=== PATIENT | female | born 2000 | race Caucasian/White ===

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

== ENCOUNTER 2022-01-04 17:40 | Emergency (ER) | payer MEDICAID, SELFPAY ==
[2022-01-04 17:41] VITALS: BP 120/69; PULSE 89; RESP 18; TEMP 36.7; O2SAT 99; BMI 35.6
--- NOTE | 2022-01-04 18:07 | HMH.EDUTC ---
[facility] [place] Clinical Impression: Exposure to STD, Viral syndrome Disposition: Home, Self-Care Condition on Discharge: Good Instructions: An STD Now Can Result in Infertility Later, DI for COVID-19 (Suspected or Confirmed ), Preventing the Spread of Coronavirus Discharge Instructions Additional Instructions: Drink plenty of fluids. Take tylenol or ibuprofen for pain. Follow up with your regular doctor. GO TO THE ER FOR ANY WORSENING SYMPTOMS Referrals: Caden Garcia MD [Primary Care Provider] - Forms: Work/School Release Time of Disposition: 18:31 Medical Decision Making - Medical Records Medical records reviewed: No: I reviewed the patient's medical records. - Tomas Inquiry Pt receiving controlled substance: No Vital Signs: 01/04/22 17:41 01/04/22 18:42 Temperature 98.0 F 98.0 F Temperature Source Oral Oral Pulse Rate 89 Pulse Rate [Right Radial] 89 Respiratory Rate 18 19 Blood Pressure 120/69 Blood Pressure [Right Arm] 120/69 Blood Pressure Mean [Right Arm] 86 Blood Pressure Source Automatic Cuff Blood Pressure Source [Right Arm] Automatic Cuff Blood Pressure Position Sitting Blood Pressure Position [Right Arm] Sitting 02 Sat by Pulse Oximetry 99 Oxygen Delivery Method Room Air Room Air - Lab Data Lab results reviewed: Yes: I reviewed the patient's lab results. Orders (Tests/Meds): ORDERS Category Date Time Status Urine Culture Stat Micro 01/04/22 17:53 Results [facility] [place] HPI - General Stated complaint: COVID TEST,COUGH,dIARRHEA Time Seen by Provider: 01/04/22 18:07 - History of Present Illness Provider Complaint: She is here to get an std check and to be checked for covid-19. She denies any symptoms of stds but she found out her boyfriend has been cheating on her and she would like to be checked. - Related Data Home Medications Medication Instructions Recorded Confirmed vits,calcium 21-iron fum tab PO 09/22/21 09/22/21 14 mg iron-folic acid 400 mcg tablet Allergies Allergy/AdvReac Type Severity Reaction Status Date / Time No Known Allergies Allergy Verified 01/04/22 18:07 [facility] History - Hepatitis A Screen Attestation statement:: This patient has been screened for Hepatitis A risk factors. I have reviewed the patient's past medical history: Yes Other Surgeries: Yes: No Previous Surgery Amputation: No Fractures: No - Social History Smoking Status: Current every day smoker Tobacco Type: e-cigarettes # Packs/Day (cigarettes): 1 Alcohol Intake: never Substance Use Type: denies use Occupational Status: other Housing: house Household Members: other Family Hx:: Cancer, Diabetes, Hypertension, Stroke ROS Obtained: Yes All systems reviewed & no additional complaints - Constitutional Constitutional: Denies chills, Denies fever(s) - Eyes Eyes: Denies eye discharge - ENT Ears, Nose, Mouth, and Throat: Denies dizziness, Denies otalgia, Denies sore throat - Cardiovascular Cardiovascular: Denies chest pain - Respiratory Respiratory: Denies chest congestion, Denies cough - Genitourinary Female Genitourinary: Denies dysuria, Denies urinary incontinence, Denies urinary hesitancy, Denies urinary urgency, Denies vaginal discharge Physical Exam - General General appearance: alert, in no apparent distress - Head Head exam: atraumatic, normocephalic, normal inspection - Eye Eye exam: Present: normal appearance, PERRL, EOMI - ENT ENT exam: Present: normal exam, normal oropharynx, mucous membranes moist, TM's normal bilaterally, normal external ear exam - Neck Neck exam: Present: normal inspection, full ROM, trachea midline. Absent: meningismus, lymphadenopathy - Chest Chest inspection: Present: normal inspection, symmetric chest wall rise. Absent: tenderness - Respiratory Respiratory exam: Present: normal lung sounds bilaterally. Absent: respiratory distress - Cardiovascular Cardiovascul
[2022-01-04 18:42] VITALS: BP 120/69; PULSE 89; RESP 19; TEMP 36.7; O2SAT 99
[2022-01-07 04:56] LABS: Neisseria gonorrhoeae, NAA Negative (Negative)
== END 2022-01-04 18:42 | disposition home or self-care (01) ==
PROVIDERS: Emergency Provider Nurse Practitioner Family; PCP Emergency Medicine
DX: N30.00 Acute cystitis without hematuria (principal); B96.20 Unspecified Escherichia coli [E. coli] as the cause of diseases classified elsewhere; Z20.2 Contact with and (suspected) exposure to infections with a predominantly sexual mode of transmission; F17.210 Nicotine dependence, cigarettes, uncomplicated
CPT/HCPCS: 87086; 87088; 87186; 87491; 87591; 99213; C9803; G0463; U0003; U0005

== ENCOUNTER 2022-03-17 15:51 | Emergency (ER) | payer MEDICAID, SELFPAY ==
[2022-03-17 17:20] VITALS: BP 141/87; PULSE 81; RESP 17; TEMP 36.5; O2SAT 98; BMI 36.2
--- NOTE | 2022-03-17 17:36 | HMH.EDUTC ---
[facility] [place] Disposition Clinical Impression: UTI (urinary tract infection) Qualifiers: Urinary tract infection type: site unspecified Hematuria presence: without hematuria Qualified Code(s): N39.0 - Urinary tract infection, site not specified Disposition: Home, Self-Care Condition on Discharge: Good Instructions: DI for Urinary Tract Infection (UTI) Additional Instructions: *Increase fluids. Water not Soda or Tea *Start antibiotic immediately and be sure to take as ordered for the FULL length of time although you should start to see improvement over the next 48 hours *Pyridium as needed Remember this medication will turn your urine Bullitt. This is normal but it will stain what ever it gets on *You should not use Pyridium for more than 48 hours. If so , follow up with your primary physician to review urine culture and ensure that antibiotic is adequate for infection *Be SURE to follow up anytime for new or worsening symptoms with your family doctor. AND in 48 hours for urine culture results with your family doctor, if you do not have a doctor then you may call back to the [facility] for urine culture results and further treatment. We do recommend that you choose and establish care with a Primary Care Physician. AND follow up with them in 10-14 days to repeat UA to ensure infection is resolved and blood no longer present *Be sure to let your PCP know that we sent urine cultures from the [facility] so they can follow up to ensure that you area the on the correct antibiotic Call your doctor office and make appointment for 48 hours (2 days from today) to follow up and get the results of your urine culture and further treatment Prescriptions: cephALEXin [cephALEXin 500mg capsule*] 500 mg PO BID 7 Days #14 cap Transmission Status: Pending to [facility] # Phenazopyridine HCl [Pyridium 200mg Tablet] 200 pow PO TID #6 tab Transmission Status: Pending to [facility] # Referrals: Caden Garcia MD [Primary Care Provider] - As needed Time of Disposition: 17:43 Medical Decision Making - Tomas Inquiry Pt receiving controlled substance: No Tomas was queried for this patient: No Vital Signs: 03/17/22 17:20 Temperature 97.7 F Temperature Source Oral Pulse Rate [Right Brachial] 81 Respiratory Rate 17 Blood Pressure [Right Arm] 141/87 H Blood Pressure Mean [Right Arm] 105 Blood Pressure Source [Right Arm] Automatic Cuff Blood Pressure Position [Right Arm] Sitting 02 Sat by Pulse Oximetry 98 Oxygen Delivery Method Room Air - Lab Data Lab results reviewed: Yes: I reviewed the patient's lab results. [facility] [place] HPI - General Stated complaint: Possible UTI Time Seen by Provider: 03/17/22 17:36 Mode of Arrival: Ambulatory Source of Information: Patient Limitations: No Limitations Description of Symptoms (Recalled from Triage Doc. by RN): PATIENT C/O FREQUENCY AND BURNING WITH URINATION THAT STARTED TODAY HEENT Symptoms (Recalled from RN notes): No Resp Symptoms (Recalled from RN notes): No Skin Symptoms (Recalled from RN notes): No MS Symptoms (Recalled from RN notes): No Functional Status (Recalled from RN notes): WNL - History of Present Illness Provider Complaint: Patient states that she has been having some burning with urination and feels irritated down there when she urinates States that she has been having the feeling of urgency and frequency feels like she may have a UTI - Related Data Home Medications Medication Instructions Recorded Confirmed vits,calcium 21-iron fum tab PO 09/22/21 01/22/22 14 mg iron-folic acid 400 mcg tablet Previous Rx's Medication Instructions Recorded Phenazopyridine HCl [Pyridium 200 pow PO TID #6 tab 03/17/22 200mg Tablet] cephALEXin [cephALEXin 500mg 500 mg PO BID 7 Days #14 cap 03/17/22 capsule*] Allergies Allergy/AdvReac Type Severity Reaction Status Date / Time No Known Allergies Allergy Verified 01/22/22 13:34 - Worker'
[2022-03-17 17:41] LABS: UTC Pregnancy Test, Urine Negative (Negative)
[2022-03-17 17:41] LABS: Apearance,Urine Clear (Clear); Color,Urine Yellow (Yellow)
[2022-03-17 17:42] LABS: Glucose,Urine (UA) Negative (Negative); Protein,Urine Negative (Negative)
[2022-03-17 17:43] LABS: Bilirubin,Urine Negative (Negative); Blood, Urine Negative (Negative); Ketones,Urine Negative (Negative); UTC Leukocyte Esterase,Urine Trace (Negative); UTC Nitrate,Urine Negative (Negative); Urobilinogen,Urine 0.2 EU/dl (0.2)
[2022-03-17 17:51] VITALS: BP 141/87; PULSE 81; RESP 17; TEMP 36.5; O2SAT 98
== END 2022-03-17 17:53 | disposition home or self-care (01) ==
PROVIDERS: Emergency Provider Nurse Practitioner; PCP Emergency Medicine
DX: N39.0 Urinary tract infection, site not specified (principal); F17.290 Nicotine dependence, other tobacco product, uncomplicated
CPT/HCPCS: 81003; 81025; 87086; 99212; G0463

== ENCOUNTER 2022-04-05 19:50 | Emergency (ER) | payer MEDICAID, SELFPAY ==
[2022-04-05 19:51] VITALS: BP 140/78; PULSE 95; RESP 16; TEMP 36.7; O2SAT 99; BMI 34.9
[2022-04-05 20:05] LABS: Microscopic, Urine URINE MICROSCOPIC (MICROSCOPIC)
--- NOTE | 2022-04-05 20:17 | HMH.EDUROGF ---
ED Disposition Clinical Impression: Urethritis, nonspecific Vaginitis Qualifiers: Chronicity: acute Qualified Code(s): N76.0 - Acute vaginitis Disposition: Home, Self-Care Condition on Discharge: Good Instructions: DI for Vaginal Yeast Infection, DI for Urethritis Additional Instructions: use meds and call pcp for follow up and urine culture results and hardware supplies sales representative consult Prescriptions: Fluconazole [Diflucan 100mg tablet] 100 mg PO DAILY #3 tab Transmission Status: Pending to [facility] # Minocycline HCl [Minocycline HCl 100mg Tab*] 100 mg PO BID #20 tab Transmission Status: Pending to [facility] # Phenazopyridine HCl [Pyridium 200mg Tablet] 200 pow PO TID #6 tab Transmission Status: Pending to [facility] # Referrals: Caden Garcia MD [Primary Care Provider] - - Critical Care Critical Care Time: No Attestation: On 04/05/22, the high probability of a clinically significant, sudden or life threatening deterioration of the following system(s) required my full and direct attention, intervention and personal management. The time I documented below is in addition to time spent performing reported procedures but includes the following listed in this critical care notation. Medical Decision Making - Medical Records Medical records reviewed: Yes: I reviewed the patient's medical records. - Tomas Inquiry Pt receiving controlled substance: No Vital Signs: 04/05/22 19:51 Temperature 98.1 F Temperature Source Oral Pulse Rate [Left Radial] 95 H Respiratory Rate 16 Blood Pressure [Right Arm] 140/78 Blood Pressure Mean [Right Arm] 98 Blood Pressure Source [Right Arm] Automatic Cuff Blood Pressure Position [Right Arm] Sitting 02 Sat by Pulse Oximetry 99 Oxygen Delivery Method Room Air - Lab Data Lab results reviewed: Yes: I reviewed the patient's lab results. Lab Results 04/05/22 19:58: Urine Color Yellow, Urine Appearance Clear, Urine pH 5.5, Ur Specific Curlew >= 1.030, Urine Protein Negative, Urine Glucose (UA) Negative, Urine Ketones Negative, Urine Blood Negative, Urine Nitrate Negative, Urine Bilirubin Negative, Urine Urobilinogen 0.2, Ur Leukocyte Esterase Trace, Urine RBC None, Urine WBC 10-20, Ur Squamous Epith Cells 3-5, Urine Bacteria Trace 04/05/22 19:58: Urine HCG, Qual Negative Orders (Tests/Meds): ORDERS Category Date Time Status Urine Culture Stat Micro 04/05/22 19:58 Received Medical Decision Narrative: vaginal burning after coitus with no def d/c - Female Urogenital HPI - General Chief complaint: Urogenital-Female Stated complaint: poss UTI Time Seen by Provider: 04/05/22 20:00 Mode of Arrival: Ambulatory Source of Information: Patient, Medical Record Limitations: No Limitations Description of Symptoms (Recalled from ER Triage Doc. by RN): VAGINAL BURNING AFTER SEX. - History of Present Illness HPI Narrative: vaginal burning after coitus about 2 hrs ago Complaint: dysuria Onset (ago): hour(s) Severity: moderate Urinary Symptoms: dysuria Sexual activity: yes : No Associated symptoms: denies other symptoms - Related Data Home Medications Medication Instructions Recorded Confirmed vits,calcium 21-iron fum 1 tab PO DAILY 09/22/21 04/05/22 14 mg iron-folic acid 400 mcg tablet Previous Rx's Medication Instructions Recorded Fluconazole [Diflucan 100mg tablet] 100 mg PO DAILY #3 tab 04/05/22 Minocycline HCl [Minocycline HCl 100 mg PO BID #20 tab 04/05/22 100mg Tab*] Phenazopyridine HCl [Pyridium 200 pow PO TID #6 tab 04/05/22 200mg Tablet] Allergies Allergy/AdvReac Type Severity Reaction Status Date / Time No Known Allergies Allergy Verified 01/22/22 13:34 [facility] History - Hepatitis A Screen Attestation statement:: This patient has been screened for Hepatitis A risk factors. I have reviewed the patient's past medical history: Yes Other Surgeries
[2022-04-05 20:20] LABS: Appearance,Urine CLEAR (Clear); Bilirubin,Urine Negative (Negative); Blood, Urine Negative (Negative); Color,Urine YELLOW (Yellow); Glucose,Urine (UA) Negative (Negative); Ketones,Urine Negative (Negative); Leukocyte Esterase,Urine TRACE (Negative); Nitrate,Urine Negative (Negative); PH,Urine 5.5 (5.0-8.5); Protein,Urine Negative (Negative); Specific Gravity, Urine >= 1.030 (1.005-1.030); Urobilinogen,Urine 0.2 EU/dl (0.2)
[2022-04-05 20:23] LABS: Urine Pregnancy, HCG Qual. Negative (Negative)
--- NOTE | 2022-04-05 20:25 | PC.NURSE ---
SPECULUM AND WET PREP AND WATER BASED LUBRICANT TO BEDSIDE. MD AWARE.
[2022-04-05 20:33] LABS: Bacteria,Urine Trace /lpf
[2022-04-05 21:32] VITALS: BP 138/76; PULSE 88; RESP 18; TEMP 36.8; O2SAT 99
== END 2022-04-05 21:34 | disposition home or self-care (01) ==
PROVIDERS: Emergency Provider Emergency Medicine; PCP Emergency Medicine
DX: N34.2 Other urethritis (principal); N76.0 Acute vaginitis; Z80.9 Family history of malignant neoplasm, unspecified; Z83.3 Family history of diabetes mellitus; Z82.3 Family history of stroke; Z82.49 Family history of ischemic heart disease and other diseases of the circulatory system
CPT/HCPCS: 81001; 81025; 87086; 87210; 99283

== ENCOUNTER 2022-04-13 11:46 | Emergency (ER) | payer MEDICAID, SELFPAY ==
--- NOTE | 2022-04-13 12:13 | HMH.EDUTC ---
[facility] [place] Impression: Otitis media Qualifiers: Otitis media type: suppurative Chronicity: acute Laterality: bilateral Recurrence: non-recurrent Spontaneous tympanic membrane rupture: without spontaneous rupture Qualified Code(s): H66.003 - Acute suppurative otitis media without spontaneous rupture of ear drum, bilateral Sinusitis Qualifiers: Sinusitis location: unspecified location Chronicity: acute Recurrence: non-recurrent Qualified Code(s): J01.90 - Acute sinusitis, unspecified Disposition: Home, Self-Care Condition on Discharge: Good Instructions: Middle Ear Infection, DI for Sinusitis Additional Instructions: Drink plenty of fluids. Take tylenol or ibuprofen for pain or fever. Take the medications as directed. Follow up with your regular doctor. GO TO THE ER FOR ANY WORSENING SYMPTOMS Quarantine until you know the results of your covid-19 test. Notify your school or workplace of your results and follow their instructions regarding return to work/school. Prescriptions: Brompheniramine/Pseudoephed/Dm [Bromfed Dm Cough Syrup] 5 ml PO Q6HP PRN #240 ml PRN Reason: Cough Transmission Status: Received by [facility] # methylPREDNISolone [Medrol] 4 mg PO DIRECTED 6 Days #21 packet Transmission Status: Received by [facility] # Azithromycin [Z-Bucky 250mg Tab*] 250 mg PO UD DOSE PK #6 tab Transmission Status: Received by [facility] # Referrals: Caden Garcia MD [Primary Care Provider] - Forms: Work/School Release Time of Disposition: 12:52 Medical Decision Making - Medical Records Medical records reviewed: No: I reviewed the patient's medical records. - Tomas Inquiry Pt receiving controlled substance: No Vital Signs: 04/13/22 12:14 04/13/22 12:59 Temperature 98.0 F 98.0 F Temperature Source Oral Pulse Rate 69 Pulse Rate [Left] 69 Respiratory Rate 16 16 Blood Pressure 114/71 Blood Pressure [Right Arm] 114/71 Blood Pressure Mean [Right Arm] 85 02 Sat by Pulse Oximetry 96 - Lab Data Lab results reviewed: Yes: I reviewed the patient's lab results. Medical Decision Narrative: She refused a covid-19 test. [facility] [place] - General Stated complaint: lt ear pain, sore throat, neck stiffness Time Seen by Provider: 07/12/22 12:24 - History of Present Illness Provider Complaint: She c/o left ear pain and sore throat for the past 2 days. - Related Data Home Medications Medication Instructions Recorded Confirmed vits,calcium 21-iron fum 1 tab PO DAILY 09/22/21 04/05/22 14 mg iron-folic acid 400 mcg tablet Previous Rx's Medication Instructions Recorded Fluconazole [Diflucan 100mg tablet] 100 mg PO DAILY #3 tab 04/05/22 Minocycline HCl [Minocycline HCl 100 mg PO BID #20 tab 04/05/22 100mg Tab*] Phenazopyridine HCl [Pyridium 200 pow PO TID #6 tab 04/05/22 200mg Tablet] Azithromycin [Z-Bucky 250mg Tab*] 250 mg PO UD DOSE PK #6 tab 04/13/22 Brompheniramine/Pseudoephed/Dm 5 ml PO Q6HP PRN #240 ml 04/13/22 [Bromfed Dm Cough Syrup] methylPREDNISolone [Medrol] 4 mg PO DIRECTED 6 Days #21 04/13/22 packet Allergies Allergy/AdvReac Type Severity Reaction Status Date / Time No Known Allergies Allergy Verified 04/13/22 12:17 [facility] History - Hepatitis A Screen Attestation statement:: This patient has been screened for Hepatitis A risk factors. I have reviewed the patient's past medical history: Yes Other Surgeries: Yes: No Previous Surgery Amputation: No Fractures: No - Social History Smoking Status: Current every day smoker Tobacco Type: e-cigarettes # Packs/Day (cigarettes): 1 Alcohol Intake: never Substance Use Type: denies use Occupational Status: other Housing: house Household Members: other Family Hx:: Cancer, Diabetes, Hypertension, Stroke ROS Obtained: No All systems reviewed & no additional complaints - Constitutional Constitutional: R
[2022-04-13 12:14] VITALS: BP 114/71; PULSE 69; RESP 16; TEMP 36.7; O2SAT 96; BMI 34.2
[2022-04-13 12:59] VITALS: BP 114/71; PULSE 69; RESP 16; TEMP 36.7
== END 2022-04-13 13:00 | disposition home or self-care (01) ==
PROVIDERS: Emergency Provider Nurse Practitioner Family; PCP Emergency Medicine
DX: H66.003 Acute suppurative otitis media without spontaneous rupture of ear drum, bilateral (principal); J01.90 Acute sinusitis, unspecified; J02.9 Acute pharyngitis, unspecified; M43.6 Torticollis; F17.290 Nicotine dependence, other tobacco product, uncomplicated; Z79.51 Long term (current) use of inhaled steroids; Z79.52 Long term (current) use of systemic steroids; Z79.899 Other long term (current) drug therapy; Z82.49 Family history of ischemic heart disease and other diseases of the circulatory system; Z83.3 Family history of diabetes mellitus; Z80.9 Family history of malignant neoplasm, unspecified
CPT/HCPCS: 99213; G0463

== ENCOUNTER → 2022-04-26 11:55 | Outpatient (CLI) | payer MEDICAID, SELFPAY ==
[2022-04-27 08:31] LABS: Progesterone 4.7 ng/mL (.)
[2022-04-28 06:15] LABS: HIV Screen 4th Generation wRfx Non Reactive (Non Reactive)
[2022-04-28 12:11] LABS: Rapid Plasma Reagin Ab Titer Non Reactive (NonRea<1:1)
== END ==
PROVIDERS: PCP Emergency Medicine; Visit Provider Obstetrics & Gynecology
DX: N97.9 Female infertility, unspecified (principal); Z11.3 Encounter for screening for infections with a predominantly sexual mode of transmission
CPT/HCPCS: 36415; 84144; 86592; 86703; G0432

== ENCOUNTER 2022-04-29 13:27 | Emergency (ER) | payer MEDICAID, SELFPAY ==
[2022-04-29 14:50] VITALS: BP 131/89; PULSE 89; RESP 18; TEMP 36.7; O2SAT 98; BMI 36.0
--- NOTE | 2022-04-29 15:17 | HMH.EDUTC ---
[facility] [place] Clinical Impression: Ear pain Qualifiers: Laterality: left Qualified Code(s): H92.02 - Otalgia, left ear Disposition: Home, Self-Care Condition on Discharge: Good Instructions: DI for Ear Pain-Adult, Loratadine Additional Instructions: *Monitor Temp, Over the counter Motrin or Tylenol as directed/as needed Tylenol every 4 hours and Motrin every 6 hours (as long as your family doctor has told you that you can take it) for fever or pain. and straight to ER if unable to lower temp less than 101.0 after medication given Over the counter allergy medication may help with nasal congestion *Sleep elevated *Humidifier/Vaporizer *Flonase 2 sprays in each nostril daily but be aware that it may take 2-3 days before you notice improvement Follow up IMMEDIATELY for new or worsening symptoms or no Noticeable improvement over the next 48-72 hours. 911 for difficulty breathing or swallowing Referrals: Caden Garcia MD [Primary Care Provider] - As needed Time of Disposition: 15:18 Medical Decision Making - Tomas Inquiry Pt receiving controlled substance: No Tomas was queried for this patient: No Vital Signs: 04/29/22 14:50 Temperature 98.1 F Temperature Source Oral Pulse Rate [Radial] 89 Respiratory Rate 18 Blood Pressure [Right Arm] 131/89 Blood Pressure Mean [Right Arm] 103 Blood Pressure Source [Right Arm] Automatic Cuff Blood Pressure Position [Right Arm] Sitting 02 Sat by Pulse Oximetry 98 Oxygen Delivery Method Room Air [facility] [place] - General Stated complaint: ear pain Time Seen by Provider: 04/29/22 15:18 Mode of Arrival: Ambulatory Source of Information: Patient Description of Symptoms (Recalled from Triage Doc. by RN): LEFT EAR PAIN X 1 WEEK HEENT Symptoms (Recalled from RN notes): Yes Resp Symptoms (Recalled from RN notes): No Skin Symptoms (Recalled from RN notes): No MS Symptoms (Recalled from RN notes): No Functional Status (Recalled from RN notes): N/A - History of Present Illness Provider Complaint: Patient state that she was recently treated for ear infection but she started having pain on and off for about a week with pressure like feeling in it States that she wasnt sure if it was allergies or if her ear infection returned - Related Data Home Medications Medication Instructions Recorded Confirmed vits,calcium 21-iron fum 1 tab PO DAILY 09/22/21 04/05/22 14 mg iron-folic acid 400 mcg tablet Previous Rx's Medication Instructions Recorded Fluconazole [Diflucan 100mg tablet] 100 mg PO DAILY #3 tab 04/05/22 Minocycline HCl [Minocycline HCl 100 mg PO BID #20 tab 04/05/22 100mg Tab*] Phenazopyridine HCl [Pyridium 200 pow PO TID #6 tab 04/05/22 200mg Tablet] Azithromycin [Z-Bucky 250mg Tab*] 250 mg PO UD DOSE PK #6 tab 04/13/22 Brompheniramine/Pseudoephed/Dm 5 ml PO Q6HP PRN #240 ml 04/13/22 [Bromfed Dm Cough Syrup] methylPREDNISolone [Medrol] 4 mg PO DIRECTED 6 Days #21 04/13/22 packet Allergies Allergy/AdvReac Type Severity Reaction Status Date / Time No Known Allergies Allergy Verified 04/13/22 12:17 - Worker's Comp Is this a Worker's Comp case?: No [facility] History - Hepatitis A Screen Attestation statement:: This patient has been screened for Hepatitis A risk factors. I have reviewed the patient's past medical history: Yes Other Surgeries: Yes: No Previous Surgery Amputation: No Fractures: No - Social History Smoking Status: Current every day smoker Tobacco Type: e-cigarettes # Packs/Day (cigarettes): 1 Alcohol Intake: never Substance Use Type: denies use Occupational Status: other Housing: house Household Members: other Family Hx:: Cancer, Diabetes, Hypertension, Stroke ROS Obtained: Yes All systems reviewed & no additional complaints, Yes Systems reviewed as appropriate & no additional complaints - Constitutional Constitutional: Reports system reviewed and no additional complaints, except as docu, Denies body
[2022-04-29 15:21] VITALS: BP 131/89; PULSE 88; RESP 18; TEMP 36.7; O2SAT 98
== END 2022-04-29 15:23 | disposition home or self-care (01) ==
PROVIDERS: Emergency Provider Nurse Practitioner; PCP Emergency Medicine
DX: H92.02 Otalgia, left ear (principal)
CPT/HCPCS: 99212; G0463

== ENCOUNTER 2022-05-24 22:33 | Emergency (ER) | payer MEDICAID, SELFPAY ==
[2022-05-24 22:34] VITALS: BP 131/82; PULSE 85; RESP 18; TEMP 36.8; O2SAT 99; BMI 35.4
[2022-05-24 23:18] VITALS: BMI 35.4
[2022-05-24 23:32] LABS: Microscopic, Urine URINE MICROSCOPIC (MICROSCOPIC)
[2022-05-24 23:33] LABS: Appearance,Urine CLEAR (Clear); Bilirubin,Urine Negative (Negative); Blood, Urine Negative (Negative); Color,Urine YELLOW (Yellow); Glucose,Urine (UA) Negative (Negative); Ketones,Urine Negative (Negative); Leukocyte Esterase,Urine Negative (Negative); Nitrate,Urine Negative (Negative); PH,Urine 5.5 (5.0-8.5); Protein,Urine Negative (Negative); Specific Gravity, Urine >= 1.030 (1.005-1.030); Urobilinogen,Urine 0.2 EU/dl (0.2)
[2022-05-24 23:34] LABS: Basophils # 0.1 K/mm3 (0-0.2); Basophils % 0.6 % (0.1-2.0); Eosinophils # 0.2 K/mm3 (0.0-0.4); Eosinophils % 1.9 % (0.1-12.0); Hematocrit 42.9 % (37.0-47.0); Hemoglobin 13.3 g/dL (12.2-16.2); Lymphocytes % 33.6 % (10-50); Mean Corpuscular HGB Conc 30.9 g/dL (31.8-35.4); Mean Corpuscular Volume 87.1 fl (81-99); Mean Platelet Volume 8.6 fl (7.4-10.4); Monocytes # 0.7 K/mm3 (0.1-1.0); Monocytes % 5.4 % (1.7-9.3); Neutrophils % 58.4 % (37.0-80.0); Platelet Count 265 K/mm3 (142-424); Red Blood Count 4.92 M/mm3 (4.20-5.40); Red Cell Distribution Width 15.1 % (11.5-17.5)
[2022-05-24 23:36] LABS: Urine Pregnancy, HCG Qual. Negative (Negative)
[2022-05-24 23:45] LABS: Alanine Aminotransferase 22 U/L (12-78); Albumin Level 4.3 g/dl (3.5-5.0); Albumin/Globulin Ratio 1.5 (1.1-1.8); Alkaline Phosphatase 104 U/L (38-126); Anion Gap 10.6 mEq/L (5-15); Aspartate Amino Transferase 34 U/L (14-36); Blood Urea Nitrogen 8 mg/dl (7-17); Calcium 9.3 mg/dl (8.4-10.2); Carbon Dioxide 25 mmol/L (22.0-30.0); Chloride 108 mmol/L (98-107); Creatinine Clearance Estimated 180 mL/min (50-200); Estimated Glomerular Filt Rate 108 ml/min (>60); GFR (African American) 130 ML/MIN (>60); Globulin 2.9 g/dL (1.3-3.2); Glucose 96 mg/dl (74-100); Potassium 3.6 mmoL/L (3.5-5.1); Sodium 140 mmol/L (136-145); Total Protein,Serum 7.2 g/dl (6.3-8.2)
[2022-05-24 23:46] LABS: Bilirubin,Total < 0.1 mg/dl (0.2-1.3)
[2022-05-24 23:50] LABS: C-Reactive Protein 3.2 mg/L (0-4)
[2022-05-24 23:55] LABS: Amylase 75 U/L (30-110); Lipase 83 U/L (23-300)
--- NOTE | 2022-05-25 | CT_ITS ---
PROCEDURE INFORMATION: Exam: CT Abdomen And Pelvis With Contrast Exam date and time: 05/25/2022 12:02 AM Age: 21 years old Clinical indication: Abdominal pain; Localized; Lower; Additional info: Abd pain, tenderness, and constipation TECHNIQUE: Imaging protocol: Computed tomography of the abdomen and pelvis with contrast. Radiation optimization: All CT scans at this facility use at least one of these dose optimization techniques: automated exposure control; mA and/or kV adjustment per patient size (includes targeted exams where dose is matched to clinical indication); or iterative reconstruction. Contrast material: ISOVUE; Contrast volume: 75 ml; Contrast route: IV; COMPARISON: No relevant prior studies available. FINDINGS: Liver: Normal. Gallbladder and bile ducts: Normal. Pancreas: Normal. Spleen: Normal. Adrenal glands: Normal. No mass. Kidneys and ureters: Simple left renal cyst, for which no further evaluation necessary. Stomach and bowel: Normal. Appendix: Appendix normal. Intraperitoneal space: Small amount of pelvic free fluid, likely physiologic. Vasculature: Unremarkable. No abdominal aortic aneurysm. Lymph nodes: Unremarkable. No enlarged lymph nodes. Urinary bladder: Unremarkable as visualized. Reproductive: Bilateral ovarian cystic structures, measuring 3.6 cm on the right and 2.7 cm on the left. Bones/joints: No acute abnormality. Soft tissues: Normal. IMPRESSION: 1. No acute abdominal or pelvic abnormality. 2. Bilateral ovarian cystic structures, measuring 3.6 cm on the right and 2.7 cm on the left. Recommend further evaluation with sonography.
[2022-05-25 00:03] LABS: Mucus,Urine 2+ /lpf; Squamous Epithelial Cell,Urine Occasional #/hpf (0-5)
[2022-05-25 00:04] LABS: Procalcitonin 0.033 ng/mL (0.0-2.0)
[2022-05-25 00:04] LABS: Bacteria,Urine 1+ /lpf
[2022-05-25 00:08] LABS: Erythrocyte Sedimentation Rate 19 mm/hr (0-20)
--- NOTE | 2022-05-25 00:59 | HMH.EDUROGF ---
ED Disposition Clinical Impression: Pelvic pain Ovarian cyst Qualifiers: Laterality: bilateral Qualified Code(s): N83.201 - Unspecified ovarian cyst, right side; N83.202 - Unspecified ovarian cyst, left side Disposition: Home, Self-Care Condition on Discharge: Good Instructions: DI for Acute Abdominal Pain Additional Instructions: call pcp for follow up Referrals: Caden Garcia MD [Primary Care Provider] - - Critical Care Critical Care Time: No Attestation: On 05/24/22, the high probability of a clinically significant, sudden or life threatening deterioration of the following system(s) required my full and direct attention, intervention and personal management. The time I documented below is in addition to time spent performing reported procedures but includes the following listed in this critical care notation. Medical Decision Making - Medical Records Medical records reviewed: Yes: I reviewed the patient's medical records. - Tomas Inquiry Pt receiving controlled substance: No Vital Signs: 05/24/22 22:34 Temperature 98.3 F Temperature Source Oral Pulse Rate [Right] 85 Respiratory Rate 18 Blood Pressure [Right Arm] 131/82 Blood Pressure Mean [Right Arm] 98 02 Sat by Pulse Oximetry 99 Oxygen Delivery Method Room Air - Lab Data Lab results reviewed: Yes: I reviewed the patient's lab results. Lab Results 05/24/22 23:20: Urine Color Yellow, Urine Appearance Clear, Urine pH 5.5, Ur Specific [place] >= 1.030, Urine Protein Negative, Urine Glucose (UA) Negative, Urine Ketones Negative, Urine Blood Negative, Urine Nitrate Negative, Urine Bilirubin Negative, Urine Urobilinogen 0.2, Ur Leukocyte Esterase Negative, Urine RBC None, Urine WBC None, Ur Squamous Epith Cells Occasional, Urine Bacteria 1+, Urine Mucus 2+ 05/24/22 23:20: Urine HCG, Qual Negative 05/24/22 23:25: WBC 12.0, RBC 4.92, Hgb 13.3, Hct 42.9, MCV 87.1, MCH 27.0, MCHC 30.9 L, RDW 15.1, Plt Count 265, MPV 8.6, Neut % (Auto) 58.4, Lymph % (Auto) 33.6, [place] % (Auto) 5.4, Eos % (Auto) 1.9, Baso % (Auto) 0.6, Neut # (Auto) 7.0, Lymph # (Auto) 4.0, [place] # (Auto) 0.7, Eos # (Auto) 0.2, Baso # (Auto) 0.1, ESR 19 05/24/22 23:25: Sodium 140, Potassium 3.6, Chloride 108 H, Carbon Dioxide 25, Anion Gap 10.6, BUN 8, Creatinine 0.70, Estimated Creat Clear 180, Estimated GFR 108, Est GFR ( Amer) 130, Glucose 96, Calcium 9.3, Total Bilirubin < 0.1 L, AST 34, ALT 22, Alkaline Phosphatase 104, C-Reactive Protein 3.2, Total Protein 7.2, Albumin 4.3, Globulin 2.9, Albumin/Globulin Ratio 1.5, Procalcitonin 0.033 05/24/22 23:25: Amylase 75, Lipase 83 Result diagrams: 05/24/22 23:25 05/24/22 23:25 Orders (Tests/Meds): ED MEDICATIONS Generic Name Dose Route Start Last Admin Trade Name Freq PRN Reason Stop Dose Admin Sodium Chloride 1,000 mls @ 999 mls/hr 05/24/22 23:45 05/24/22 23:58 Sod Chlor 0.9% 1000ml Bag IV 05/25/22 00:45 999 mls/hr .Q1H1M PRETTY Administration Discontinued Medications Generic Name Dose Route Start Last Admin Trade Name Freq PRN Reason Stop Dose Admin Iopamidol 75 ml 05/25/22 00:15 05/25/22 00:15 Iopamidol-370 (76%);100ml Bottle IV 05/25/22 00:16 75 ml ONCE ONE Administration Ketorolac Tromethamine 30 mg 05/24/22 23:44 05/25/22 01:04 Ketorolac 30mg/Ml Vial IV 05/24/22 23:45 Not Given ONCE ONE Morphine Sulfate 2 mg 05/25/22 01:02 05/25/22 01:13 Morphine 2mg/Ml Syringe IV 05/25/22 01:03 2 mg ONCE ONE Administration Sodium Chloride 10 ml 05/25/22 00:15 05/25/22 00:15 Sodium Chloride 0.9% 10ml Syr (Rad Only) IV 05/25/22 00:16 10 ml ONCE ONE Administration - CT Data CT Scan: Abdomen, Pelvis Time Received: 02:[address] Reviewed: Yes: I have viewed the radiologist's interpretation Preliminary Findings: Abnormal - US Data US Images: Pelvis ED US Reviewed: Yes: I have viewed radiologist's interpretation Findings Narrative: see report - ECG Data Trac
--- NOTE | 2022-05-25 01:01 | US_ITS ---
PROCEDURE INFORMATION: Exam: US Pelvis, Transvaginal Exam date and time: 05/25/2022 2:06 AM Age: 21 years old Clinical indication: Patient HX: Pelvic pain x 6 days, worsening today; Additional info: R/O torsion TECHNIQUE: Imaging protocol: Real-time transvaginal pelvic ultrasound with image documentation. Transvaginal imaging was used for better evaluation of the endometrium, adnexa, and/or cervix. COMPARISON: CT ABDOMEN PELVIS W CON 05/25/2022 12:02 AM FINDINGS: Uterus: Uterus is anteverted and measures 6.0 x 2.8 x 3.2 cm. Endometrium homogeneous in echotexture measuring 5 mm in thickness at the uterine fundus. Right ovary/adnexa: Right ovary measures 5.7 x 4.2 x 3.9 cm. Normal right ovarian vascularity. Minimally complicated cystic structures within the right ovary, the largest measuring approximately 3.6 x 2.8 cm and the smaller measuring 2.8 cm in maximal diameter. Left ovary/adnexa: Left ovary measures 4.8 x 3.2 x 3.1 cm. Normal left ovarian vascularity. Small simple cyst within the left ovary. Intraperitoneal space: Small amount of pelvic free fluid, likely physiologic. IMPRESSION: 1. No acute abnormality. Specifically, no drain torsion. 2. Simple left ovarian cyst. 3. Minimally complicated right ovarian cysts. Recommend sonographic follow-up in approximately 4-6 weeks.
--- NOTE | 2022-05-25 01:01 | PC.NURSE ---
Called radiology to request u/s tech for us transvaginal to r/o torsion
--- NOTE | 2022-05-25 02:01 | PC.NURSE ---
pt left for u/s via wheelchair
[2022-05-25 02:53] VITALS: BP 125/68; PULSE 78; RESP 18; TEMP 36.6; O2SAT 99
[2022-05-26 23:35] LABS: Neisseria gonorrhoeae, NAA Negative (Negative)
== END 2022-05-25 02:55 | disposition home or self-care (01) ==
PROVIDERS: Emergency Provider Emergency Medicine; PCP Emergency Medicine
DX: N83.201 Unspecified ovarian cyst, right side (principal); N83.202 Unspecified ovarian cyst, left side; R00.1 Bradycardia, unspecified; Z82.49 Family history of ischemic heart disease and other diseases of the circulatory system; Z80.9 Family history of malignant neoplasm, unspecified; Z83.3 Family history of diabetes mellitus
CPT/HCPCS: 74177; 76830; 80053; 81001; 81025; 82150; 83690; 84145; 85025; 85651; 86140; 87491; 87591; 96361; 96374; 96375; 99285; Q9967

== ENCOUNTER → 2022-05-25 14:30 | Outpatient (CLI) | payer MEDICAID, SELFPAY | PROVIDERS: PCP Emergency Medicine; Visit Provider Obstetrics & Gynecology | DX: N83.201 Unspecified ovarian cyst, right side (principal) | CPT/HCPCS: 36415; 84144 ==

== ENCOUNTER 2022-07-12 12:46 | Emergency (ER) | payer MEDICAID, SELFPAY ==
[2022-07-12 13:45] VITALS: BP 129/78; PULSE 101; RESP 19; TEMP 36.6; O2SAT 98; BMI 35.1
--- NOTE | 2022-07-12 14:34 | EXP.UTC ---
Discharge Plan Disposition Patient Disposition: Home, Self-Care Condition: Good Prescriptions Prescriptions: New amoxicillin 875 mg tablet 875 mg PO BID Qty: 20 0RF fluticasone propionate [Flonase Allergy Relief] 50 mcg/actuation spray,suspension 1 spray intranasal DAILY Qty: 16 0RF Rx Instructions: administer into each nostril methylprednisolone [Medrol (Bucky)] 4 mg tablets,dose pack See Rx Instructions .Route .COMPLEX 6 Days Qty: 21 0RF Rx Instructions: taper pack; No Action Complete 14 mg iron- 400 mcg tablet 1 tab PO DAILY Qty: 30 11RF clomiphene citrate 50 mg tablet 50 mg PO .days 3-7 Qty: 5 4RF Referrals Follow up/Referrals: Caden Garcia MD [Primary Care Provider] - See instructions Activity Restrictions/Add. Instructions Additional Instructions/Restrictions: *Monitor Temp, Over the counter Motrin or Tylenol as directed/as needed Tylenol every 4 hours and Motrin every 6 hours (as long as your family doctor has told you that you can take it) for fever or pain. and straight to ER if unable to lower temp less than 101.0 after medication given *Warm salt water gargles may help to soothe the throat *Throat Lozenges? *Warm fluids like tea with honey may help to soothe the throat? *Sleep elevated *Humidifier/Vaporizer Take medication as prescribed Use Flonase as instructed Follow up IMMEDIATELY for new or worsening symptoms or no Noticeable improvement over the next 48-72 hours. 911 for difficulty breathing or swallowing Clinical Impressions Clinical Impression: Otitis media Instructions Patient Instructions: Middle Ear Infection, Amoxicillin Discharge ED Provider: Lise Fleming [facility] [place] General Stated complaint: Ear pain both ears, trouble hearing Mode of Arrival: Ambulatory Source of Information: Patient Limitations: No Limitations Time Seen by Provider: 07/12/22 14:34 Description of Symptoms (Recalled from Triage Doc. by RN): PATIENT C/O POSSIBLE EAR INFECTION TO BIALTERAL EARS X 2 DAYS HEENT Symptoms (Recalled from RN notes): No Resp Symptoms (Recalled from RN notes): No Skin Symptoms (Recalled from RN notes): No MS Symptoms (Recalled from RN notes): No Functional Status (Recalled from RN notes): WNL History of Present Illness Provider Complaint: Patient states that she has been having pain in both ears and feels like they are full and muffled hearing States that it has continued to get worse over the last couple of weeks States that today they was still hurting so she came in to get it checked out Related Data Previous Rx's Medication Instructions Recorded vits,calcium 21-iron fum 1 tab PO DAILY Supplement #30 tabs 05/28/22 14 mg iron-folic acid 400 mcg tablet ( Complete) clomiphene citrate 50 mg tablet 50 mg PO .days 3-7 #5 tabs 07/05/22 amoxicillin 875 mg tablet 875 mg PO BID #20 tabs 07/12/22 fluticasone propionate 50 1 spray intranasal DAILY #16 grams 07/12/22 mcg/actuation nasal spray,suspension (Flonase Allergy Relief) methylprednisolone 4 mg tablets in See Rx Instructions .Route 07/12/22 a dose pack (Medrol (Bucky)) .COMPLEX 6 days #21 tabs Allergies Allergy/AdvReac Type Severity Reaction Status Date / Time No Known Allergies Allergy Verified 07/05/22 16:14 Worker's Comp Is this a Worker's Comp case?: No PFSH PFSH Medical History (Updated 07/12/22 @ 14:41 by Lise Fleming APRN) Anxiety Asthma Depression Migraine Polycystic ovary syndrome Urinary tract infection Social History (Updated 07/12/22 @ 14:01 by Sally Elise RN) Smoking Status: Current every day smoker tobacco type: e-cigarettes second hand exposure: No alcohol intake: never substance use type: denies use current occupational status: other Travel in the last 8 weeks: None household members: other housing: house ROS Obtained: Yes All systems reviewed & no additional com
[2022-07-12 14:52] VITALS: BP 129/78; PULSE 101; RESP 19; TEMP 36.6; O2SAT 98
== END 2022-07-12 14:56 | disposition home or self-care (01) ==
PROVIDERS: Emergency Provider Nurse Practitioner; PCP Emergency Medicine
DX: H66.93 Otitis media, unspecified, bilateral (principal); E28.2 Polycystic ovarian syndrome; G43.909 Migraine, unspecified, not intractable, without status migrainosus; J45.909 Unspecified asthma, uncomplicated; F32.A Depression, unspecified; F41.9 Anxiety disorder, unspecified; F17.290 Nicotine dependence, other tobacco product, uncomplicated
CPT/HCPCS: 99213; G0463

== ENCOUNTER → 2023-03-24 09:51 | Outpatient (CLI) | payer MEDICAID, SELFPAY ==
[2023-03-24 12:27] LABS: HCG,Quantitative 84 mIU/ml (0-5.42)
== END ==
PROVIDERS: PCP Emergency Medicine; Visit Provider Obstetrics & Gynecology
DX: N92.6 Irregular menstruation, unspecified (principal); Z32.00 Encounter for pregnancy test, result unknown
CPT/HCPCS: 36415; 84144; 84702

== ENCOUNTER → 2023-03-26 11:34 | Outpatient (CLI) | payer MEDICAID, SELFPAY ==
[2023-03-26 12:40] LABS: HCG,Quantitative 199 mIU/ml (0-5.42)
== END ==
PROVIDERS: PCP Emergency Medicine; Visit Provider Obstetrics & Gynecology
DX: Z34.91 Encounter for supervision of normal pregnancy, unspecified, first trimester (principal); Z3A.01 Less than 8 weeks gestation of pregnancy; R10.32 Left lower quadrant pain
CPT/HCPCS: 36415; 84702

== ENCOUNTER 2023-03-28 18:31 | Emergency (ER) | payer MEDICAID, SELFPAY ==
[2023-03-28 18:32] VITALS: BP 122/81; PULSE 96; RESP 17; TEMP 36.9; O2SAT 100; BMI 36.3
[2023-03-28 19:00] VITALS: BP 126/87; PULSE 102; RESP 18; O2SAT 98
--- NOTE | 2023-03-28 19:00 | US_ITS ---
PROCEDURE INFORMATION: Exam: US , Transvaginal Exam date and time: 03/28/2023 7:26 PM Age: 22 years old Clinical indication: complicated by abdominal or pelvic pain; Left lower quadrant; First trimester (<14 weeks 0 days); Gestational age or lmp: 4 week 4 days; ; Additional info: First trimester abdominal pain TECHNIQUE: Imaging protocol: Real-time transvaginal obstetrical ultrasound of the maternal pelvis with image documentation. Transvaginal imaging was used for better evaluation of the fetus, adnexa, and/or cervix. COMPARISON: US TRANSVAGINAL 05/25/2022 2:06 AM FINDINGS: MATERNAL: Uterus: Small fluid collection within the endometrial canal. No yolk sac demonstrated. The collection measures 0.5 cm corresponding to 4 weeks 4 days. Right ovary/adnexa: 3.18 x 2.46 x 1.89 cm in length, transverse AP dimensions. Focal peripheral rim of vascularity in association with a follicle suggestive of corpus luteum cyst. Left ovary/adnexa: 2.3 x 1.7 x 1.3 cm in length, transverse in AP dimensions. Flow demonstrated within the left ovary. Small non dominant follicles demonstrated. Intraperitoneal space: No evidence of fluid in the cul-de-sac. IMPRESSION: 1. Small endometrial fluid collection corresponding to 4 weeks 4 days. No yolk sac or pole demonstrated. Recommend follow-up to document for viable intrauterine gestation. 2. Findings suggestive of right corpus luteum cyst.
--- NOTE | 2023-03-28 19:01 | PC.NURSE ---
notified rad of u/s order, states will call staff in
--- NOTE | 2023-03-28 19:05 | HMH.EDGENADL ---
Discharge Plan Disposition Patient Disposition: Home, Self-Care Prescriptions Prescriptions: No Action progesterone micronized [Prometrium] 200 mg capsule 200 mg vaginal HS Rx Instructions: insert vaginally at bedtime Referrals Follow up/Referrals: Caden Garcia MD [Primary Care Provider] - See instructions Dorinda Yuan DO [Staff Physician] - See instructions Clinical Impressions Clinical Impression: Abdominal pain, Instructions Patient Instructions: DI for Abdominal Pain -- Early Discharge ED Provider: Radha (ED)Caden General Adult HPI <Avila Schilling MD - Last Filed: 03/28/23 19:09> General Chief complaint: Abdominal Pain Stated complaint: right side pain, 4 weeks Time Seen by Provider: 03/28/23 18:35 Mode of Arrival: Ambulatory Source of Information: Patient Limitations: No Limitations Description of Symptoms (Recalled from ER Triage Doc. by RN): 22 F presents from home with c/o RLQ abdominal pain that radiates to midline. Patient is , 4wks 5days gestation. Patient reports this pain started 03/25 and has continued. Denies fever, chills, diarrhea. Does not describe any worse nausea or vomiting r/t her . History of Present Illness HPI narrative: 22-year-old female presents with right lower quadrant abdominal pain. She says that she is G1, P0 and 4 weeks gestation. She says the pain started on 623 and has continued. Pain is dull nonradiating intermittent. No vaginal bleeding or discharge. No dysuria hematuria no diarrhea or vomiting. Related Data Home Medications Medication Instructions Recorded Confirmed progesterone micronized 200 mg 200 mg vaginal HS 03/28/23 capsule (Prometrium) Allergies Allergy/AdvReac Type Severity Reaction Status Date / Time No Known Allergies Allergy Verified 11/05/22 11:11 PFS <Avila Schilling MD - Last Filed: 03/28/23 19:09> [facility] Disclaimer: The information contained in this section may have been updated after the patient was seen, as this information can be updated by other users. Medical History Anxiety Asthma Depression Migraine Polycystic ovary syndrome Urinary tract infection Social History Smoking Status: Current every day smoker tobacco type: e-cigarettes second hand exposure: No alcohol intake: never substance use type: denies use current occupational status: other Travel in the last 8 weeks: None household members: other housing: house <Avila Schilling MD - Last Filed: 03/28/23 19:09> ROS Obtained: Yes All systems reviewed & no additional complaints except as documented Constitutional Constitutional: Denies fatigue Eyes Eyes: Denies diplopia ENT Ears, Nose, Mouth, and Throat: Denies dizziness Cardiovascular Cardiovascular: Denies diaphoresis Respiratory Respiratory: Denies cough Gastrointestinal Gastrointestingal: Denies diarrhea Genitourinary Female Genitourinary: Denies dysuria Musculoskeletal Musculoskeletal: Denies back pain Integumentary/Breasts Skin/Breast: Denies dry skin Neurologic Neurologic: Denies confusion and Denies dizziness Endocrine Endocrine: Denies fatigue Hematologic/Lymphatic Henatologic/Lymphatic: Denies easy bleeding Allergic/Immunologic Allergic/Immunologic: Denies urticaria Physical Exam <Avila Schilling MD - Last Filed: 03/28/23 19:09> General General appearance: alert and in no apparent distress Eye Eye exam: Present PERRL and EOMI ENT ENT exam: Present normal exam and normal oropharynx Neck Neck exam: Present normal inspection Chest Chest inspection: Present symmetric chest wall rise Respiratory Respiratory exam: Present normal lung sounds bilaterally; Absent respiratory distress Cardiovascular Cardiovascular exam: Present regular rate and normal rhythm Abdominal Exam Abdominal exam: Present soft and tend
[2023-03-28 19:11] LABS: Urine Pregnancy, HCG Qual. Positive (Negative)
[2023-03-28 19:11] LABS: Chloride 105 mmol/L (98-107); Potassium 3.9 mmoL/L (3.5-5.1); Sodium 142 mmol/L (136-145)
[2023-03-28 19:12] LABS: Basophils % 0.3 % (0.1-2.0); Eosinophils # 0.2 K/mm3 (0.0-0.4); Eosinophils % 1.5 % (0.1-12.0); Hematocrit 39.6 % (37.0-47.0); Hemoglobin 13.1 g/dL (12.2-16.2); Lymphocytes % 23.2 % (10-50); Mean Corpuscular Hemoglobin 27.6 pg (27.0-31.2); Mean Corpuscular Volume 83.5 fl (81-99); Mean Platelet Volume 8.5 fl (7.4-10.4); Monocytes # 0.6 K/mm3 (0.1-1.0); Monocytes % 4.6 % (1.7-9.3); Neutrophils # 9.2 K/mm3 (1.8-7.8); Neutrophils % 70.3 % (37.0-80.0); Platelet Count 279 K/mm3 (142-424); Red Blood Count 4.74 M/mm3 (4.20-5.40); White Blood Count 13.1 K/mm3 (4.5-13.0)
[2023-03-28 19:14] LABS: Alanine Aminotransferase 24 U/L (12-78); Alkaline Phosphatase 104 U/L (38-126); Amylase 93 U/L (30-110); Anion Gap 17.9 mEq/L (5-15); Aspartate Amino Transferase 36 U/L (14-36); Blood Urea Nitrogen 9 mg/dl (7-17); Calcium 9.5 mg/dl (8.4-10.2); Carbon Dioxide 23 mmol/L (22.0-30.0); Creatinine Clearance Estimated 256 mL/min (50-200); Estimated Glomerular Filt Rate 157 ml/min (>60); GFR (African American) 190 ML/MIN (>60); Glucose 102 mg/dl (74-100); Lipase 87 U/L (23-300)
[2023-03-28 19:15] LABS: Albumin Level 4.7 g/dl (3.5-5.0); Albumin/Globulin Ratio 1.5 (1.1-1.8); Globulin 3.1 g/dL (1.3-3.2); Total Protein,Serum 7.8 g/dl (6.3-8.2)
[2023-03-28 19:27] LABS: Bilirubin,Total < 0.1 mg/dl (0.2-1.3)
--- NOTE | 2023-03-28 19:32 | PC.NURSE ---
Pt changed into gown and to rad for US
[2023-03-28 20:31] LABS: HCG,Quantitative 570 mIU/ml (0-5.42)
[2023-03-28 21:14] VITALS: BP 112/72; PULSE 80; RESP 17; TEMP 36.8; O2SAT 98
== END 2023-03-28 21:23 | disposition home or self-care (01) ==
PROVIDERS: Emergency Medicine; Emergency Provider Emergency Medicine; PCP Emergency Medicine
DX: O99.611 Diseases of the digestive system complicating pregnancy, first trimester (principal); O99.331 Smoking (tobacco) complicating pregnancy, first trimester; R10.31 Right lower quadrant pain; F17.290 Nicotine dependence, other tobacco product, uncomplicated; Z3A.01 Less than 8 weeks gestation of pregnancy; O99.343 Other mental disorders complicating pregnancy, third trimester; F41.9 Anxiety disorder, unspecified; F32.A Depression, unspecified
CPT/HCPCS: 36415; 76817; 80053; 81025; 82150; 83690; 84702; 85025; 86900; 86901; 96360; 99284; 99285

== ENCOUNTER 2023-04-19 17:20 | Emergency (ER) | payer MEDICAID, SELFPAY ==
[2023-04-19 17:25] VITALS: BP 126/82; PULSE 79; RESP 18; TEMP 36.8; O2SAT 98; BMI 36.2
[2023-04-19 17:45] LABS: Microscopic, Urine URINE MICROSCOPIC (MICROSCOPIC)
[2023-04-19 17:56] LABS: Appearance,Urine CLEAR (Clear); Bilirubin,Urine Negative (Negative); Blood, Urine 1+ (Negative); Color,Urine YELLOW (Yellow); Glucose,Urine (UA) Negative (Negative); Ketones,Urine Negative (Negative); Leukocyte Esterase,Urine TRACE (Negative); Nitrate,Urine Negative (Negative); PH,Urine 5.5 (5.0-8.5); Protein,Urine Negative (Negative); Specific Gravity, Urine 1.025 (1.005-1.030); Urobilinogen,Urine 0.2 EU/dl (0.2)
[2023-04-19 17:58] LABS: Urine Pregnancy, HCG Qual. Positive (Negative)
[2023-04-19 18:00] LABS: Basophils % 0.2 % (0.1-2.0); Eosinophils # 0.1 K/mm3 (0.0-0.4); Eosinophils % 1.5 % (0.1-12.0); Hematocrit 43.5 % (37.0-47.0); Hemoglobin 14.1 g/dL (12.2-16.2); Lymphocytes # 2.1 K/mm3 (0.7-4.5); Lymphocytes % 22.6 % (10-50); Mean Corpuscular HGB Conc 32.4 g/dL (31.8-35.4); Mean Corpuscular Hemoglobin 27.2 pg (27.0-31.2); Monocytes # 0.4 K/mm3 (0.1-1.0); Monocytes % 4.6 % (1.7-9.3); Neutrophils # 6.6 K/mm3 (1.8-7.8); Platelet Count 224 K/mm3 (142-424); Red Blood Count 5.18 M/mm3 (4.20-5.40); Red Cell Distribution Width 14.9 % (11.5-17.5); White Blood Count 9.3 K/mm3 (4.5-13.0)
[2023-04-19 18:04] LABS: Chloride 104 mmol/L (98-107); Potassium 3.9 mmoL/L (3.5-5.1); Sodium 138 mmol/L (136-145)
[2023-04-19 18:07] LABS: Alanine Aminotransferase 28 U/L (12-78); Albumin Level 4.4 g/dl (3.5-5.0); Albumin/Globulin Ratio 1.2 (1.1-1.8); Alkaline Phosphatase 99 U/L (38-126); Anion Gap 13.9 mEq/L (5-15); Aspartate Amino Transferase 27 U/L (14-36); Bilirubin,Total 0.3 mg/dl (0.2-1.3); Blood Urea Nitrogen 5 mg/dl (7-17); Carbon Dioxide 24 mmol/L (22.0-30.0); Creatinine Clearance Estimated 254 mL/min (50-200); Estimated Glomerular Filt Rate 157 ml/min (>60); GFR (African American) 190 ML/MIN (>60); Globulin 3.6 g/dL (1.3-3.2)
[2023-04-19 18:10] LABS: RBC,Urine Occasional #/hpf (0-3)
[2023-04-19 18:11] LABS: Bacteria,Urine Trace /lpf
[2023-04-19 18:13] LABS: Glucose 93 mg/dl (74-100)
--- NOTE | 2023-04-19 18:15 | HMH.EDGENADL ---
Discharge Plan Disposition Patient Disposition: Home, Self-Care Prescriptions Prescriptions: New nitrofurantoin monohyd/m-cryst [Macrobid] 100 mg capsule 100 mg PO BID 5 Days Qty: 10 0RF Rx Instructions: must administer with a meal/food No Action multivitamin Tablet 1 tab PO DAILY progesterone micronized [Prometrium] 200 mg capsule 200 mg vaginal HS Rx Instructions: insert vaginally at bedtime Referrals Follow up/Referrals: Caden Garcia MD [Primary Care Provider] - See instructions Activity Restrictions/Add. Instructions Additional Instructions/Restrictions: At this time is felt you are safe to be discharged home. If new or worsening symptoms please not hesitate to return the emergency department. Please follow-up with your OB doctor as you are able. Please take your medication as prescribed. Clinical Impressions Clinical Impression: , threatened, Asymptomatic bacteriuria Discharge ED Provider: Byron Lares General Adult HPI General Chief complaint: Vaginal Bleeding Stated complaint: 7 wks , spotting Time Seen by Provider: 04/19/23 17:50 Mode of Arrival: Ambulatory Source of Information: Patient Limitations: No Limitations Description of Symptoms (Recalled from ER Triage Doc. by RN): PT STATES SHE IS 7 WEEKS AND 7 DAYS PREGANT, STATES SHE STARTED SPOTTING ABOUT A HOUR AGO, EXPLAINS DISCHARGE A REDDISH PINK COLOR, LAST KNOWN PERIOD 02/24/23, ALSO REPORTS MILD FLANK PAIN AND CRAMPING History of Present Illness HPI narrative: Patient is a 22-year-old female with past medical history of PCOS currently 7 weeks who presents emergency department for evaluation of spotting. Patient states she has slight low pelvic cramping pain which has resolved prior to arrival. Denies abdominal pain. Denies dysuria. Denies passage of clots or tissue. Last sexual activity yesterday. Patient states that she has had a previously documented intrauterine . Upon chart review of ultrasound patient has a small endometrial fluid collection corresponding to 4 weeks and 4 days, no yolk sac, no pole demonstrated, findings suggestive of a right corpus luteum cyst. Patient denies vomiting, other acute complaints at this time. Related Data Home Medications Medication Instructions Recorded Confirmed progesterone micronized 200 mg 200 mg vaginal HS 03/28/23 04/19/23 capsule (Prometrium) multivitamin 1 tab PO DAILY Supplement 04/19/23 04/19/23 Previous Rx's Medication Instructions Recorded nitrofurantoin 100 mg PO BID 5 days #10 caps 04/19/23 monohydrate/macrocrystals 100 mg capsule (Macrobid) Allergies Allergy/AdvReac Type Severity Reaction Status Date / Time No Known Allergies Allergy Verified 11/05/22 11:11 [facility] Disclaimer: The information contained in this section may have been updated after the patient was seen, as this information can be updated by other users. Medical History Anxiety Asthma Depression Migraine Polycystic ovary syndrome Urinary tract infection Social History Smoking Status: Current some day smoker tobacco type: e-cigarettes second hand exposure: No alcohol intake: never substance use type: denies use current occupational status: other Travel in the last 8 weeks: None household members: other housing: house ROS Obtained: Yes Systems reviewed as appropriate & no additional complaints except as documented Physical Exam General General appearance: alert and in no apparent distress Head Head exam: atraumatic and normocephalic Eye Eye exam: Present PERRL and EOMI ENT ENT exam: Present mucous membranes moist Neck Neck exam: Present normal inspection Chest Chest inspection: Present normal inspection and symmetric chest wall rise Respiratory Respiratory exam: Prese
--- NOTE | 2023-04-19 18:27 | US_ITS ---
PROCEDURE INFORMATION: Exam: US , Transvaginal Exam date and time: 04/19/2023 6:48 PM Age: 22 years old Clinical indication: Lmp or gestational age (in weeks): 7w5d; Antepartum complications; Bleeding; ; Additional info: 7 weeks spotting LABS AND CLINICAL REPORTS: Last menstrual period start date: 02/24/2023 Gestational age (Established): 7 w 5 d Estimated due date (Established): 12/01/2023 TECHNIQUE: Imaging protocol: Real-time transvaginal obstetrical ultrasound of the maternal pelvis with image documentation. Transvaginal imaging was used for better evaluation of the fetus, adnexa, and/or cervix. COMPARISON: US OB TRANSVAGINAL 03/28/2023 7:26 PM FINDINGS: Gestation: Intrauterine gestation is visualized. pole is visualized. Yolk sac is visualized. Yolk sac measures 4.7 mm. heart rate: 152 bpm BIOMETRY: Gestational age (AUA): 7 w 6 d Estimated due date (AUA): 11/30/2023 Shubuta-Rump length (CRL): 14.7 mm. EGA (CRL) is 7 w 6 d MATERNAL: Right ovary/adnexa: Right ovary measures 3.4 cm x 1.8 cm x 2.5 cm. Right ovarian volume is 7.9 mL. Normal blood flow. Left ovary/adnexa: Left ovary measures 2.2 cm x 1.7 cm x 1.5 cm. Left ovarian volume is 2.9 mL. Normal blood flow. IMPRESSION: Unremarkable limited exam.
[2023-04-19 18:28] LABS: HCG Qualitative, Serum Positive (Negative)
[2023-04-19 18:35] LABS: Calcium 9.5 mg/dl (8.4-10.2)
--- NOTE | 2023-04-19 18:48 | PC.NURSE ---
PT TRANSPORTED TO ULTRASOUND VIA WHEELCHAIR.
[2023-04-19 18:50] LABS: HCG,Quantitative 70452 mIU/ml (0-5.42)
[2023-04-19 20:30] VITALS: BP 120/74; PULSE 83; RESP 18; TEMP 36.8
== END 2023-04-19 20:32 | disposition home or self-care (01) ==
PROVIDERS: Emergency Provider Emergency Medicine; PCP Emergency Medicine
DX: O20.0 Threatened abortion (principal); O99.281 Endocrine, nutritional and metabolic diseases complicating pregnancy, first trimester; O23.41 Unspecified infection of urinary tract in pregnancy, first trimester; E28.2 Polycystic ovarian syndrome; R82.71 Bacteriuria; Z3A.01 Less than 8 weeks gestation of pregnancy; O99.331 Smoking (tobacco) complicating pregnancy, first trimester; F41.9 Anxiety disorder, unspecified; F32.A Depression, unspecified; O99.341 Other mental disorders complicating pregnancy, first trimester
CPT/HCPCS: 76817; 80053; 81001; 81025; 84702; 84703; 85025; 99285

== ENCOUNTER → 2023-04-21 12:24 | Outpatient (CLI) | payer MEDICAID, SELFPAY ==
[2023-04-21 14:28] LABS: HCG,Quantitative 76940 mIU/ml (0-5.42)
== END ==
PROVIDERS: PCP Emergency Medicine; Visit Provider Obstetrics & Gynecology
DX: Z34.91 Encounter for supervision of normal pregnancy, unspecified, first trimester (principal); Z3A.01 Less than 8 weeks gestation of pregnancy
CPT/HCPCS: 36415; 84702

== ENCOUNTER → 2023-04-22 17:03 | Outpatient (CLI) | payer MEDICAID, SELFPAY ==
[2023-04-25 21:25] LABS: Neisseria gonorrhoeae, NAA Negative (Negative)
== END ==
PROVIDERS: Visit Provider Obstetrics & Gynecology
DX: Z34.91 Encounter for supervision of normal pregnancy, unspecified, first trimester (principal); Z3A.08 8 weeks gestation of pregnancy
CPT/HCPCS: 87491; 87591

== ENCOUNTER → 2023-04-23 11:13 | Outpatient (CLI) | payer MEDICAID, SELFPAY ==
[2023-04-23 11:33] LABS: Basophils % 0.2 % (0.1-2.0); Eosinophils # 0.2 K/mm3 (0.0-0.4); Eosinophils % 1.8 % (0.1-12.0); Hematocrit 37.9 % (37.0-47.0); Hemoglobin 12.3 g/dL (12.2-16.2); Lymphocytes % 23.4 % (10-50); Mean Corpuscular HGB Conc 32.4 g/dL (31.8-35.4); Mean Corpuscular Hemoglobin 26.8 pg (27.0-31.2); Mean Corpuscular Volume 82.7 fl (81-99); Mean Platelet Volume 8.9 fl (7.4-10.4); Monocytes # 0.4 K/mm3 (0.1-1.0); Monocytes % 4.5 % (1.7-9.3); Neutrophils # 5.9 K/mm3 (1.8-7.8); Neutrophils % 70.1 % (37.0-80.0); Platelet Count 224 K/mm3 (142-424); Red Blood Count 4.58 M/mm3 (4.20-5.40); White Blood Count 8.4 K/mm3 (4.5-13.0)
[2023-04-24 09:09] LABS: Rapid Plasma Reagin Ab Titer Non Reactive (NonRea<1:1)
[2023-05-15 13:01] LABS: Hepatitis B Surface Antigen Negative
[2023-05-15 13:02] LABS: Hepatitis C Antibody Non Reactive
[2023-05-15 13:03] LABS: HSV 1 IgG, Type Spec <0.91; Rubella Antibodies, IgG <0.9
[2023-05-15 13:04] LABS: HIV Screen 4th Generation wRfx NON REACTIVE; HSV 2 IgG, Type Spec <0.91
== END ==
PROVIDERS: PCP Emergency Medicine; Visit Provider Obstetrics & Gynecology
DX: Z34.91 Encounter for supervision of normal pregnancy, unspecified, first trimester (principal); Z3A.08 8 weeks gestation of pregnancy
CPT/HCPCS: 36415; 85025; 86593; 86695; 86703; 86762; 86790; 86850; 87340; 87380; G0432

== ENCOUNTER → 2023-06-13 14:42 | Outpatient (CLI) | payer MEDICAID, SELFPAY ==
--- NOTE | 2023-06-13 14:42 | US_ITS ---
PROCEDURE: US OB >= 14 WEEKS FETUS CLINICAL INDICATION: Spotting in Second Trimester of COMPARISON: US US OB TRANSVAGINAL from 04/19/2023 FINDINGS: Transabdominal and transvaginal sonographic images of the uterus were obtained. From her established due date she is 15weeks 4days. The following ultrasound parameters were obtained: Viable fetus in the breech presentation. Transvaginal scanning reveals that the placenta is posterior, low lying and measures 6.7 mm from the internal cervical os. No obvious collection of blood. Ultrasound gestational age today 15weeks 6days. heart tones are present with an FHR of 136bpm. Cervix measures 3.1 cm. BPD 15 weeks 6 HC 15 weeks 5 days AC 15 weeks 5 days FL 16 weeks 1 day Following structures were seen and appear normal: Upper, thoracic, lower spine. Bladder, kidneys, stomach Cord insertion IMPRESSION: Dictated by: Vivek Loja MD 06/13/2023 16:53 Vivek Loja MD in OV 06/13/2023 16:53
== END ==
PROVIDERS: PCP Emergency Medicine; Visit Provider Obstetrics & Gynecology
DX: O26.852 Spotting complicating pregnancy, second trimester (principal); Z3A.15 15 weeks gestation of pregnancy
CPT/HCPCS: 76805

== ENCOUNTER 2023-06-19 23:42 | Emergency (ER) | payer MEDICAID, SELFPAY ==
[2023-06-19 23:44] VITALS: BP 141/60; PULSE 88; RESP 16; TEMP 36.6; O2SAT 99; BMI 36.9
--- NOTE | 2023-06-20 00:14 | PC.NURSE ---
md @ bedside performing bedside ultrasound
--- NOTE | 2023-06-20 00:18 | HMH.EDGENADL ---
Discharge Plan Disposition Patient Disposition: Home, Self-Care Condition: Good Prescriptions Prescriptions: No Action Classic 28 mg iron- 800 mcg tablet 1 tab PO DAILY Referrals Follow up/Referrals: Caden Garcia MD [Primary Care Provider] - See instructions Activity Restrictions/Add. Instructions Additional Instructions/Restrictions: Continue taking your vitamin. Drink plenty of fluids. Do NOT take any antidiarrheal medications at this time. I anticipate that your symptoms will continue to improve over the next 24 hours. Staying hydrated is the best way to limit worsening of symptoms. Follow-up with your primary care physician in 2 to 3 days for reevaluation. Also go to your next OB appointment as scheduled. Please return to the emergency department with any new or worsening symptoms. Clinical Impressions Clinical Impression: Diarrhea Qualifiers: Diarrhea type: unspecified type Qualified Code(s): R19.7 - Diarrhea, unspecified Instructions Patient Instructions: DI for Diarrhea and Traveler's Diarrhea -- Adult, DI for Diarrhea and Traveler's Diarrhea -- Child, DI for Nausea -- Adult, DI for Nausea -- Child Discharge ED Provider: José Hardin General Adult HPI General Chief complaint: Nausea/Vomiting/Diarrhea Stated complaint: Nausea,Diarrhea,Abd pain,16 wks Time Seen by Provider: 06/20/23 00:06 Mode of Arrival: Ambulatory Source of Information: Patient Limitations: No Limitations Description of Symptoms (Recalled from ER Triage Doc. by RN): Pt reports eating Taco sil[employer] earlier around 4pm, soon after that started having abd pain and diarrhea. states she may have gotten food poisoning. History of Present Illness HPI narrative: This otherwise healthy G1, P0 22-year-old female presents to the emergency department with concerns of abdominal pain and diarrhea. Patient states she ate Taco Silva around 3 PM and by 6 PM she started having abdominal cramping. She developed diarrhea around 7 PM. She has had multiple episodes of green diarrhea, none bloody, not melanotic. Patient states she is not having any vomiting. She describes significant abdominal cramping but no vaginal bleeding, no dysuria, no vaginal discharge. Patient states she did have vaginal bleeding early in and has low-lying placenta but otherwise has not had any complications. Patient is currently taking only vitamin, no other daily medications. Related Data Home Medications Medication Instructions Recorded Confirmed vits no.126-ferrous fum 1 tab PO DAILY 06/20/23 06/20/23 28 mg iron-folic acid 800 mcg tablet (Classic ) Allergies Allergy/AdvReac Type Severity Reaction Status Date / Time No Known Allergies Allergy Verified 05/20/23 10:17 [facility] Disclaimer: The information contained in this section may have been updated after the patient was seen, as this information can be updated by other users. Medical History Anxiety Asthma Depression Maternal obesity affecting , antepartum Migraine Polycystic ovary syndrome Rubella non-immune status, antepartum Tobacco use affecting , antepartum electronic cigarette Vaginal bleeding affecting early Surgical History S/P wisdom tooth extraction Family History Grandmother Cancer Social History Smoking Status: Never smoker second hand exposure: No alcohol intake: never substance use type: denies use current occupational status: other Travel in the last 8 weeks: None household members: other housing: house ROS Obtained: Yes All systems reviewed & no additional complaints except as documented Constitutional Constitutional: Denies chills, Denies feve
[2023-06-20 00:23] LABS: Microscopic, Urine URINE MICROSCOPIC (MICROSCOPIC)
[2023-06-20 00:25] LABS: Appearance,Urine CLEAR (Clear); Bilirubin,Urine Negative (Negative); Blood, Urine Negative (Negative); Color,Urine YELLOW (Yellow); Glucose,Urine (UA) Negative (Negative); Ketones,Urine Negative (Negative); Leukocyte Esterase,Urine TRACE (Negative); Nitrate,Urine Negative (Negative); Protein,Urine Negative (Negative); Specific Gravity, Urine 1.025 (1.005-1.030); Urobilinogen,Urine 0.2 EU/dl (0.2)
[2023-06-20 00:26] LABS: Chloride 109 mmol/L (98-107); Potassium 3.8 mmoL/L (3.5-5.1); Sodium 139 mmol/L (136-145)
[2023-06-20 00:28] LABS: Basophils # 0.1 K/mm3 (0-0.2); Basophils % 0.4 % (0.1-2.0); Blood Urea Nitrogen 7 mg/dl (7-17); Creatinine Clearance Estimated 260 mL/min (50-200); Eosinophils # 0.3 K/mm3 (0.0-0.4); Eosinophils % 1.9 % (0.1-12.0); Estimated Glomerular Filt Rate 157 ml/min (>60); GFR (African American) 190 ML/MIN (>60); Hemoglobin 12.6 g/dL (12.2-16.2); Lymphocytes # 3.3 K/mm3 (0.7-4.5); Lymphocytes % 24.8 % (10-50); Mean Corpuscular HGB Conc 31.6 g/dL (31.8-35.4); Mean Corpuscular Hemoglobin 26.9 pg (27.0-31.2); Mean Corpuscular Volume 85.2 fl (81-99); Mean Platelet Volume 8.8 fl (7.4-10.4); Monocytes # 0.7 K/mm3 (0.1-1.0); Neutrophils % 67.8 % (37.0-80.0); Platelet Count 202 K/mm3 (142-424); Red Cell Distribution Width 14.6 % (11.5-17.5); White Blood Count 13.3 K/mm3 (4.5-13.0)
--- NOTE | 2023-06-20 00:28 | PC.NURSE ---
FHT located right above pubic bone, measured 144.
[2023-06-20 00:29] LABS: Alanine Aminotransferase 21 U/L (12-78); Albumin Level 3.7 g/dl (3.5-5.0); Albumin/Globulin Ratio 1.2 (1.1-1.8); Alkaline Phosphatase 94 U/L (38-126); Anion Gap 13.8 mEq/L (5-15); Aspartate Amino Transferase 29 U/L (14-36); Bacteria,Urine Trace /lpf; Bilirubin,Total 0.2 mg/dl (0.2-1.3); Calcium 9.1 mg/dl (8.4-10.2); Carbon Dioxide 20 mmol/L (22.0-30.0); Glucose 95 mg/dl (74-100); Total Protein,Serum 6.7 g/dl (6.3-8.2); WBC,Urine Occasional #/hpf (0-3)
[2023-06-20 00:33] VITALS: BP 112/66
[2023-06-20 01:01] VITALS: BP 108/58
--- NOTE | 2023-06-20 01:24 | PC.NURSE ---
Rounded on patient, no needs voiced at this time.
[2023-06-20 01:58] VITALS: BP 104/60; PULSE 61; RESP 16; TEMP 36.8; O2SAT 100
== END 2023-06-20 01:59 | disposition home or self-care (01) ==
PROVIDERS: Emergency Provider Emergency Medicine; PCP Emergency Medicine
DX: O99.612 Diseases of the digestive system complicating pregnancy, second trimester (principal); O99.512 Diseases of the respiratory system complicating pregnancy, second trimester; O99.342 Other mental disorders complicating pregnancy, second trimester; O99.332 Smoking (tobacco) complicating pregnancy, second trimester; R10.9 Unspecified abdominal pain; R19.7 Diarrhea, unspecified; J45.909 Unspecified asthma, uncomplicated; F41.9 Anxiety disorder, unspecified; F32.A Depression, unspecified; F17.290 Nicotine dependence, other tobacco product, uncomplicated; Z3A.16 16 weeks gestation of pregnancy
CPT/HCPCS: 80053; 81001; 85025; 96360; 99285

== ENCOUNTER 2023-07-01 13:14 | Emergency (ER) | payer MEDICAID, SELFPAY ==
[2023-07-01 13:15] VITALS: BP 121/69; PULSE 82; RESP 16; TEMP 36.6; O2SAT 97; BMI 37.7
[2023-07-01 13:21] VITALS: BP 121/69; PULSE 82; RESP 16; O2SAT 97
[2023-07-01 13:30] VITALS: BP 126/71; PULSE 88; RESP 16; O2SAT 97
[2023-07-01 13:35] LABS: Microscopic, Urine URINE MICROSCOPIC (MICROSCOPIC)
[2023-07-01 13:37] LABS: Appearance,Urine CLEAR (Clear); Bilirubin,Urine Negative (Negative); Blood, Urine Negative (Negative); Color,Urine YELLOW (Yellow); Glucose,Urine (UA) Negative (Negative); Ketones,Urine TRACE (Negative); Leukocyte Esterase,Urine Negative (Negative); Nitrate,Urine Negative (Negative); Protein,Urine Negative (Negative); Specific Gravity, Urine >= 1.030 (1.005-1.030); Urobilinogen,Urine 0.2 EU/dl (0.2)
--- NOTE | 2023-07-01 13:45 | PC.NURSE ---
@ BS with Gloria for US
--- NOTE | 2023-07-01 13:53 | PC.NURSE ---
I was in room with at she did ultrasound and vaginal exam
[2023-07-01 13:54] VITALS: BP 126/71; PULSE 89; RESP 16; TEMP 36.6; O2SAT 97
--- NOTE | 2023-07-01 13:58 | HMH.EDGENADL ---
Discharge Plan Disposition Patient Disposition: Home, Self-Care Condition: Good Prescriptions Prescriptions: New clotrimazole 1 % cream 1 appful vaginal HS Qty: 45 0RF No Action famotidine [Pepcid] 20 mg tablet 20 mg PO BID Qty: 60 3RF Classic 28 mg iron- 800 mcg tablet 1 tab PO DAILY Qty: 60 10RF Referrals Follow up/Referrals: Caden Garcia MD [Primary Care Provider] - See instructions Activity Restrictions/Add. Instructions Additional Instructions/Restrictions: You were evaluated in the emergency department today and diagnosed with a yeast infection. Please slat pickler your prescription for ointment and administer vaginally as prescribed. Follow-up with your OB for reassessment. Return to the emergency department for any new or worsening symptoms. Clinical Impressions Clinical Impression: Vaginal yeast infection Stand Alone Forms Stand Alone Forms: Work/School Release Instructions Patient Instructions: DI for Vaginal Yeast Infection, DI for -- Discomforts and Remedies Discharge ED Provider: Tere Quintanilla General Adult HPI General Chief complaint: Abdominal Pain Stated complaint: 18 weeks, preg, abd pain, dairrhea, possible UTI Time Seen by Provider: 07/01/23 13:32 Mode of Arrival: Ambulatory Source of Information: Patient Limitations: No Limitations Description of Symptoms (Recalled from ER Triage Doc. by RN): Presents to ED with c/o lower quadrant abd pain that began at 0400. Patient reports she has been constipated for a few days; she took a stool softner today with no relief. Patient further reports urinary urgency and dysuria. Patient states she has hx of UTI's. 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 History of Present Illness HPI narrative: This patient is a 22-year-old female at estimated 18 weeks gestation presenting to the emergency department for evaluation with concern for right lower abdominal pain and dysuria. She states that she has been having intermittent constipation and diarrhea, and she also notes urinary urgency and frequency. She reports dysuria. She states he has a history of urinary tract infections. She is concerned that she may have a vaginal yeast infection, as she has a lot of itching and pain in her vagina. She denies any abnormal leakage of fluid, vaginal bleeding, or other concerns. She also denies any fevers or chills. is uncomplicated thus far according to the patient. She does note, however, that she has a low-lying placenta. Related Data Previous Rx's Medication Instructions Recorded famotidine 20 mg tablet (Pepcid) 20 mg PO BID #60 tabs 06/22/23 vits no.126-ferrous fum 1 tab PO DAILY #60 tabs 06/28/23 28 mg iron-folic acid 800 mcg tablet (Classic ) clotrimazole 1 % vaginal cream 1 appful vaginal HS #45 grams 07/01/23 Allergies Allergy/AdvReac Type Severity Reaction Status Date / Time No Known Allergies Allergy Verified 06/22/23 10:35 [facility] Disclaimer: The information contained in this section may have been updated after the patient was seen, as this information can be updated by other users. Medical History Anxiety Asthma Depression Maternal obesity affecting , antepartum Migraine Polycystic ovary syndrome Rubella non-immune status, antepartum Tobacco use affecting , antepartum Vaginal bleeding affecting early Surgical History S/P wisdom tooth extraction Family History Grandmother Cancer Social History Smoking Status: Never smoker second hand exposure: No alcohol intake: never substance use type: denies use current occupational status: other Travel in the last 8 weeks: None household members: other housing: house
[2023-07-01 14:01] LABS: Bacteria,Urine Trace /lpf; Squamous Epithelial Cell,Urine Occasional #/hpf (0-5)
== END 2023-07-01 14:02 | disposition home or self-care (01) ==
PROVIDERS: Emergency Provider Emergency Medicine; PCP Emergency Medicine
DX: O26.892 Other specified pregnancy related conditions, second trimester (principal); O23.592 Infection of other part of genital tract in pregnancy, second trimester; O99.512 Diseases of the respiratory system complicating pregnancy, second trimester; O99.342 Other mental disorders complicating pregnancy, second trimester; O99.332 Smoking (tobacco) complicating pregnancy, second trimester; R10.32 Left lower quadrant pain; B37.31 Acute candidiasis of vulva and vagina; J45.909 Unspecified asthma, uncomplicated; F41.9 Anxiety disorder, unspecified; F32.A Depression, unspecified; F17.200 Nicotine dependence, unspecified, uncomplicated; Z3A.18 18 weeks gestation of pregnancy
CPT/HCPCS: 81001; 99284

== ENCOUNTER → 2023-07-18 13:34 | Outpatient (CLI) | payer MEDICAID, SELFPAY ==
--- NOTE | 2023-07-18 13:34 | US_ITS ---
PROCEDURE: US OB /MATERNAL DETAIL CLINICAL INDICATION: 20 week anatomy scan COMPARISON: No exams were available for comparison FINDINGS: Transabdominal sonographic images of the pelvis were obtained. From her established due date she is 20 weeks 4 days. Single viable intrauterine gestation. Breech position. Placenta: Posteriorplacenta grade 1. There is an average amount of fluid. The cervix appears satisfactory. Closed and measuring 3.2 cm in length. Complete survey performed and was unremarkable on the submitted images as in PACS. No discrete anomalies identified on survey imaging by technologist. Active fetus. Three-vessel cord with satisfactory umbilical cord insertion. 4- chamber heart noted. Situs, aortic arch, LVOT, RVOT, three-vessel view appear normal. Survey of brain & ventricles Unremarkable. Cerebellum, cisterna magna, choroid plexus, thalamus appears normal. Face and neck survey unremarkable. Profile, nasion, lips and nose appeared normal. Diaphragm and chest views unremarkable. Abdomen: Both kidneys noted and unremarkable. Stomach and bladder noted and satisfactory. Spine: Survey of the spine satisfactory with no anomalies identified nor imaged. Cervical, thoracic and lower spine appear normal. Both arms and legs noted. Amniotic Fluid: Adequate. Measurements: Average ultrasound age 20weeks 3days. Estimated due date by ultrasound age 0312/02/2023. Estimated weight 359g BPD = 19weeks 3days HC = 20weeks 4days AC = 20weeks 5days FL = 20weeks 4days Heart Rate = 138bpm Cerebellum = 20weeks 1day Humerus = 20weeks 6days HC/AC is 1.17 FL/BPD is 0.76 FL/AC is 0.22 IMPRESSION: 1. Viable fetus in the breech presentation with a posterior placenta grade 1. 2. biometry is consistent with the dates. 3. Anatomical scan appears normal. 4. There appears to be a nuchal cord. Dictated by: Vivek Loja MD 07/19/2023 15:01 Vivek Loja MD in [facility] 07/19/2023 15:01
== END ==
PROVIDERS: PCP Emergency Medicine; Visit Provider Obstetrics & Gynecology
DX: Z34.92 Encounter for supervision of normal pregnancy, unspecified, second trimester (principal); Z3A.20 20 weeks gestation of pregnancy
CPT/HCPCS: 76811

== ENCOUNTER 2023-08-02 13:38 | Outpatient (CLI) | payer MEDICAID, SELFPAY ==
[2023-08-02 14:05] VITALS: BMI 38.5
[2023-08-02 14:12] LABS: Microscopic, Urine URINE MICROSCOPIC (MICROSCOPIC)
[2023-08-02 14:15] VITALS: BP 118/69; PULSE 106; RESP 16; TEMP 36.6; O2SAT 99; BMI 38.5
[2023-08-02 14:37] LABS: Appearance,Urine CLEAR (Clear); Bilirubin,Urine Negative (Negative); Blood, Urine Negative (Negative); Color,Urine YELLOW (Yellow); Glucose,Urine (UA) Negative (Negative); Ketones,Urine Negative (Negative); Leukocyte Esterase,Urine 2+ (Negative); Nitrate,Urine Negative (Negative); Protein,Urine Negative (Negative); Urobilinogen,Urine 0.2 EU/dl (0.2)
[2023-08-02 14:43] LABS: Bacteria,Urine Trace /lpf
[2023-08-02 14:52] LABS: Barbiturates Screen,Urine Negative ng/ml (<200); Benzodiazepines Screen,Urine Negative ng/ml (<200)
[2023-08-02 14:53] LABS: Amphetamine/Metha Screen,Urine Negative ng/ml (<1000); Cocaine Screen,Urine Negative ng/ml (<300)
[2023-08-02 14:54] LABS: Methadone Screen,Urine Negative ng/ml (<300)
[2023-08-02 14:55] LABS: Cannabinoid Screen,Urine Negative ng/ml (<50); Opiate Screen,Urine Negative ng/ml (<300)
[2023-08-02 14:56] LABS: Phencyclidine Screen,Urine Negative ng/ml (<25)
== END 2023-08-02 15:25 | disposition home or self-care (01) ==
LOC: OBOUT 13:40 → OB 13:42
PROVIDERS: PCP Emergency Medicine; Visit Provider Obstetrics & Gynecology
DX: O36.8120 Decreased fetal movements, second trimester, not applicable or unspecified (principal); Z3A.22 22 weeks gestation of pregnancy
CPT/HCPCS: 80305; 81001; 87086; G0463

== ENCOUNTER 2023-08-15 18:07 | Emergency (ER) | payer MEDICAID, SELFPAY ==
[2023-08-15 18:08] VITALS: BP 131/71; PULSE 94; RESP 16; TEMP 36.6; O2SAT 98; BMI 39.4
--- NOTE | 2023-08-15 18:44 | HMH.EDGENADL ---
Discharge Plan Disposition Patient Disposition: Home, Self-Care Chief Complaint: Extremity Problem,Nontraumatic Prescriptions Prescriptions: New cephalexin 500 mg capsule 500 mg PO BID 7 Days Qty: 14 0RF No Action famotidine [Pepcid] 20 mg tablet 20 mg PO BID Qty: 60 3RF Classic 28 mg iron- 800 mcg tablet 1 tab PO DAILY Qty: 60 10RF Referrals Follow up/Referrals: Caden Garcia MD [Primary Care Provider] - See instructions La Oreilly DPM [Staff Physician] - See instructions Activity Restrictions/Add. Instructions Additional Instructions/Restrictions: At this time it was felt you are safe to be discharged home. If new or worsening symptoms please do not hesitate to return the emergency department. Please call and schedule follow-up with the clock and watch hands painter as soon as you are able. Please take antibiotics as prescribed. Clinical Impressions Clinical Impression: Ingrown toenail, Cellulitis Discharge ED Provider: Byron Lares General Adult HPI General Stated complaint: RT FOOT INGROWN TOENAIL Time Seen by Provider: 08/15/23 18:35 History of Present Illness HPI narrative: Patient is a 22-year-old female currently 24 weeks who presents emergency department for evaluation of toe pain. History is obtained by patient at bedside. Onset has been for the last couple of months. On the medial side of her right toe. Due to progressive symptoms and pain she presents here for continued evaluation. No other acute complaints at this time. Related Data Previous Rx's Medication Instructions Recorded famotidine 20 mg tablet (Pepcid) 20 mg PO BID #60 tabs 06/22/23 vits no.126-ferrous fum 1 tab PO DAILY #60 tabs 06/28/23 28 mg iron-folic acid 800 mcg tablet (Classic ) cephalexin 500 mg capsule 500 mg PO BID 7 days #14 caps 08/15/23 Allergies Allergy/AdvReac Type Severity Reaction Status Date / Time No Known Allergies Allergy Verified 07/18/23 15:16 [facility] Disclaimer: The information contained in this section may have been updated after the patient was seen, as this information can be updated by other users. Medical History Anxiety Asthma Depression Maternal obesity affecting , antepartum Migraine Polycystic ovary syndrome Rubella non-immune status, antepartum Tobacco use affecting , antepartum electronic cigarette Vaginal bleeding affecting early Surgical History S/P wisdom tooth extraction Family History Grandmother Cancer Social History Smoking Status: Never smoker second hand exposure: No alcohol intake: never substance use type: denies use current occupational status: unemployed Travel in the last 8 weeks: None household members: other housing: house ROS Obtained: Yes Systems reviewed as appropriate & no additional complaints except as documented Physical Exam General General appearance: alert and in no apparent distress Head Head exam: atraumatic and normocephalic Eye Eye exam: Present PERRL and EOMI ENT ENT exam: Present mucous membranes moist Neck Neck exam: Present normal inspection Chest Chest inspection: Present normal inspection and symmetric chest wall rise Respiratory Respiratory exam: Absent respiratory distress Cardiovascular Cardiovascular exam: Present regular rate and normal rhythm Extremities Exam Extremities exam: Present other (Erythema along the medial aspect of the right great toe, crusting at the tip, erythema without fluctuance. Nail plate is buried in the lateral nail fold. Capillary refill preserved.) Neurological Exam Neurological exam: Present alert Psychiatric Psychiatric exam: Present normal affect Skin Skin exam: Present warm
[2023-08-15 19:00] VITALS: BP 113/80; PULSE 93; RESP 15; TEMP 36.8; O2SAT 100
== END 2023-08-15 19:01 | disposition home or self-care (01) ==
LOC: ER 18:49
PROVIDERS: Emergency Provider Emergency Medicine; PCP Emergency Medicine
DX: M79.674 Pain in right toe(s) (principal); O99.712 Diseases of the skin and subcutaneous tissue complicating pregnancy, second trimester; L60.0 Ingrowing nail; L03.031 Cellulitis of right toe; O99.332 Smoking (tobacco) complicating pregnancy, second trimester
CPT/HCPCS: 99283

== ENCOUNTER 2023-08-25 05:00 | Observation (INO) | payer MEDICAID, SELFPAY ==
[2023-08-25 03:49] VITALS: BMI 39.3
[2023-08-25 03:56] VITALS: BP 126/67; PULSE 92; RESP 19; TEMP 36.4; O2SAT 98; BMI 39.4
[2023-08-25 04:03] LABS: Microscopic, Urine URINE MICROSCOPIC (MICROSCOPIC)
[2023-08-25 04:05] LABS: Appearance,Urine CLEAR (Clear); Bilirubin,Urine Negative (Negative); Blood, Urine TRACE-I (Negative); Color,Urine YELLOW (Yellow); Glucose,Urine (UA) Negative (Negative); Ketones,Urine Negative (Negative); Leukocyte Esterase,Urine TRACE (Negative); Nitrate,Urine Negative (Negative); PH,Urine 5.5 (5.0-8.5); Protein,Urine Negative (Negative); Urobilinogen,Urine 0.2 EU/dl (0.2)
[2023-08-25 04:16] LABS: Barbiturates Screen,Urine Negative ng/ml (<200); Benzodiazepines Screen,Urine Negative ng/ml (<200)
[2023-08-25 04:17] LABS: Amphetamine/Metha Screen,Urine Negative ng/ml (<1000)
[2023-08-25 04:18] LABS: Cannabinoid Screen,Urine Negative ng/ml (<50); Cocaine Screen,Urine Negative ng/ml (<300); Squamous Epithelial Cell,Urine Occasional #/hpf (0-5); WBC,Urine Occasional #/hpf (0-3)
[2023-08-25 04:19] LABS: Methadone Screen,Urine Negative ng/ml (<300)
[2023-08-25 04:20] LABS: Opiate Screen,Urine Negative ng/ml (<300); Phencyclidine Screen,Urine Negative ng/ml (<25)
[2023-08-25 04:40] LABS: Fetal Fibronectin (Rapid) Positive (Negative)
[2023-08-25 05:23] LABS: Basophils % 0.2 % (0.1-2.0); Chloride 107 mmol/L (98-107); Eosinophils # 0.2 K/mm3 (0.0-0.4); Eosinophils % 1.3 % (0.1-12.0); Hematocrit 35.7 % (37.0-47.0); Lymphocytes # 1.8 K/mm3 (0.7-4.5); Lymphocytes % 11.7 % (10-50); Mean Corpuscular HGB Conc 33.6 g/dL (31.8-35.4); Mean Corpuscular Hemoglobin 27.6 pg (27.0-31.2); Mean Corpuscular Volume 82.2 fl (81-99); Mean Platelet Volume 9.5 fl (7.4-10.4); Monocytes # 0.5 K/mm3 (0.1-1.0); Monocytes % 3.2 % (1.7-9.3); Neutrophils # 12.7 K/mm3 (1.8-7.8); Neutrophils % 83.5 % (37.0-80.0); Platelet Count 208 K/mm3 (142-424); Red Blood Count 4.34 M/mm3 (4.20-5.40); Red Cell Distribution Width 15.5 % (11.5-17.5); White Blood Count 15.2 K/mm3 (4.5-13.0)
[2023-08-25 05:24] LABS: Potassium 3.7 mmoL/L (3.5-5.1); Sodium 135 mmol/L (136-145)
[2023-08-25 05:26] LABS: Alanine Aminotransferase 25 U/L (12-78); Alkaline Phosphatase 97 U/L (38-126); Aspartate Amino Transferase 36 U/L (14-36); Bilirubin,Total 0.4 mg/dl (0.2-1.3); Blood Urea Nitrogen 5 mg/dl (7-17); Creatinine Clearance Estimated 347 mL/min (50-200); Estimated Glomerular Filt Rate 203 ml/min (>60); GFR (African American) 246 ML/MIN (>60)
[2023-08-25 05:27] LABS: Albumin Level 3.8 g/dl (3.5-5.0); Albumin/Globulin Ratio 1.3 (1.1-1.8); Anion Gap 10.7 mEq/L (5-15); Calcium 8.7 mg/dl (8.4-10.2); Carbon Dioxide 21 mmol/L (22.0-30.0); Glucose 103 mg/dl (74-100); MANUAL DIFFERENTIAL MANUAL DIFFERENTIAL (MANUAL DIFF); Total Protein,Serum 6.8 g/dl (6.3-8.2)
[2023-08-25 05:36] VITALS: BP 132/67; PULSE 78; RESP 17; TEMP 36.5; O2SAT 100
[2023-08-25 05:38] LABS: Eosinophils % 2 % (0-3); Lymphocytes % 14 % (10-50); Microcytosis 1+; Monocytes % 4 % (2-9); Neutrophils % 80 % (42-76); Platelet Estimate Normal; Total Cells Counted 100
--- NOTE | 2023-08-25 07:00 | US_ITS ---
PROCEDURE INFORMATION: Exam: US ; Follow up Exam date and time: 08/25/2023 7:21 AM Age: 22 years old Clinical indication: Lmp or gestational age (in weeks): 26w; Antepartum complications; Other: Discharge; ; Additional info: + ffn LABS AND CLINICAL REPORTS: Gestational age (Established): 26 w 0 d Estimated due date (Established): 12/01/2023 TECHNIQUE: Imaging protocol: Transabdominal ultrasound of the uterus, real time with image documentation. Follow-up (eg, re-evaluation of size by measuring standard growth parameters and amniotic fluid volume, re-evaluation of organ system(s) suspected or confirmed to be abnormal on a previous scan). Total images: 748 COMPARISON: US OB /MATERNAL DETAIL 07/18/2023 1:53 PM FINDINGS: Gestation: Single living intrauterine gestation. heart rate: 146 bpm presentation: Cephalic presentation. Placenta: Posterior placenta. Amniotic fluid index: PIPPA is 8.42 cm. BIOMETRY: Gestational age (AUA): 26 w 3 d Estimated due date (AUA): 11/28/2023 Estimated weight: 871.7 g. EFW by AC, BPD, FL, HC, [place] 1985 Biparietal diameter (BPD): 6.67 cm. EGA (BPD) is 26 w 6 d. 70 % percentile Head circumference (HC): 23.94 cm. EGA (HC) is 26 w 0 d. 25 % percentile Abdominal circumference (AC): 20.9 cm. EGA (AC) is 25 w 3 d. 25 % percentile Femur length (FL): 4.89 cm. EGA (FL) is 26 w 3 d. 50 % percentile HC/AC: 1.15 FL/BPD: 0.73 FL/AC: 0.23 MATERNAL: Cervix: Cervical length measures 3.2 cm. IMPRESSION: 1. Single living intrauterine gestation. 2. Average gestational age (AUA) 26 weeks 3 days. 3. heart rate recorded to be 146 bpm.
--- NOTE | 2023-08-25 11:23 | EXP.HP ---
History of Present Illness *Admission Date: 08/25/23 *Reason for visit:: labor *History of present illness: Heaven Cody is a 22yo who was admitted overnight after concern for labor and to rule out abruption. She is a G1 at 26w5d. She arrived via EMS with vaginal pressure and abdominal pain that the patient reports woke her up at 2 AM. On arrival the patient denies any vaginal bleeding or leakage of fluid. Stated that she feels the baby move every now and then . She denied any trauma. On initial evaluation RN collected FFN which returned positive. Pt reported intercourse approximately 30hours prior. There was also noted to be blood in her urine. She also reported she had not had a bowel movement in in 3 weeks prior to arrival when she had several episodes of diarrhea. Reports that she takes Colace every day. Patient is a current everyday smoker Past medical history: IBS, PCOS, depression, anxiety, asthma. Denies any illicit drug use [facility] Disclaimer: The information contained in this section may have been updated after the patient was seen, as this information can be updated by other users. Medical History Anxiety Asthma Depression Maternal obesity affecting , antepartum Migraine Polycystic ovary syndrome Rubella non-immune status, antepartum Tobacco use affecting , antepartum electronic cigarette Vaginal bleeding affecting early Surgical History S/P wisdom tooth extraction Family History Grandmother Cancer Social History Smoking Status: Former smoker tobacco type: e-cigarettes second hand exposure: No alcohol intake: never substance use type: denies use current occupational status: unemployed Travel in the last 8 weeks: None household members: other housing: house Review of Systems Review of Systems Review of systems (narrative): Review of Systems Constitutional: Denies fever, chills, and sweats Eyes: Denies vision change/ pain Respiratory: Denies cough and shortness of breath Cardiovascular: Denies chest pain and lightheadedness Gastrointestinal: Admits abdominal pain and vaginal pressure. Denies nausea, vomiting. Genitourinary: Denies dysuria and incontinence Neurological: Denies change in speech or headaches Meds Home Medications and Allergies Home Medications Medication Instructions Recorded Confirmed Type famotidine 20 mg tablet (Pepcid) 20 mg PO BID #60 tabs 06/22/23 08/25/23 Rx vits no.126-ferrous fum 1 tab PO DAILY #60 tabs 06/28/23 08/25/23 Rx 28 mg iron-folic acid 800 mcg tablet (Classic ) cephalexin 500 mg capsule 500 mg PO BID 7 days #14 caps 08/15/23 08/25/23 Rx New Prescriptions to Start Prescriptions: Allergies Allergy/AdvReac Type Severity Reaction Status Date / Time No Known Allergies Allergy Verified 08/22/23 10:47 Exam Data for Last 24 hours Vital signs and Labs for Last 24 Hours: Temp Pulse Resp BP Pulse Ox O2 Del Method 97.7 F 78 17 132/67 100 Room Air 08/25/23 05:36 08/25/23 05:36 08/25/23 05:36 08/25/23 05:36 08/25/23 05:36 08/25/23 05:36 Laboratory Results - last 24 hr 08/25/23 03:45: Fibronectin Positive A 08/25/23 03:50: Urine Color Yellow, Urine Appearance Clear, Urine pH 5.5, Ur Specific [place] 1.020, Urine Protein Negative, Urine Glucose (UA) Negative, Urine Ketones Negative, Urine Blood Trace-i, Urine Nitrate Negative, Urine Bilirubin Negative, Urine Urobilinogen 0.2, Ur Leukocyte Esterase Trace, Urine RBC 3-5, Urine WBC Occasional, Ur Squamous Epith Cells Occasional, Urine Opiates Screen Negative, Urine Methadone Screen Negative, Ur Barbituates Screen Negative, Ur Phencyclidine Scrn Negative, Ur Amphetamines Screen Negative, U Benzod
--- NOTE | 2023-08-25 11:23 | EXP.DC.SUM ---
General Admission date:: 08/25/23 Discharge date: 08/25/23 HPI HPI HPI: Heaven Cody is a 22yo who was admitted overnight after concern for labor and to rule out abruption. She is a G1 at 26w5d. She arrived via EMS with vaginal pressure and abdominal pain that the patient reports woke her up at 2 AM. On arrival the patient denies any vaginal bleeding or leakage of fluid. Stated that she feels the baby move every now and then . She denied any trauma. On initial evaluation RN collected FFN which returned positive. Pt reported intercourse approximately 30hours prior. There was also noted to be blood in her urine. She also reported she had not had a bowel movement in in 3 weeks prior to arrival when she had several episodes of diarrhea. Reports that she takes Colace every day. Patient is a current everyday smoker Past medical history: IBS, PCOS, depression, anxiety, asthma. Denies any illicit drug use Hospital Course Hospital Course Hospital Course: Heaven Coyd was admitted after initial evaluation for labor secondary to vaginal pressure and abdominal pain revealed a positive FFN. Patient's full evaluation was negative for labor. She has a long thick cervix that was a fingertip on exam. All of her symptoms that she initially presented with resolved after a bowel movement. We also were evaluating a leukocytosis of 15 however she has no signs or symptoms of infection. She received 1 dose of steroids prior to discharge and will follow-up tomorrow for second dose of steroids. We did discuss repeating her FFN when she was 24+ hours from vaginal exam, intercourse, or ultrasound. I discussed with the patient that this is likely unnecessary given follow-up with the surrounding evidence that she is not in labor but that we could discuss it further at her follow-up visit next week. I also discussed with the patient that per ACOG most people who presents with labor go on to deliver a healthy term infant. Pt felt very reassured and requested discharge home. I reviewed discharge instructions with the pt and her family members present in detail. I provided strict return precautions. She will return for any contractions, vaginal bleeding, LOF, decreased movement or any problems. Pt and family voiced understanding. Exam Data for Last 24 hours Vital signs and Labs for Last 24 Hours: Temp Pulse Resp BP Pulse Ox O2 Del Method 97.7 F 78 17 132/67 100 Room Air 08/25/23 05:36 08/25/23 05:36 08/25/23 05:36 08/25/23 05:36 08/25/23 05:36 08/25/23 05:36 Laboratory Results - last 24 hr 08/25/23 03:45: Fibronectin Positive A 08/25/23 03:50: Urine Color Yellow, Urine Appearance Clear, Urine pH 5.5, Ur Specific [place] 1.020, Urine Protein Negative, Urine Glucose (UA) Negative, Urine Ketones Negative, Urine Blood Trace-i, Urine Nitrate Negative, Urine Bilirubin Negative, Urine Urobilinogen 0.2, Ur Leukocyte Esterase Trace, Urine RBC 3-5, Urine WBC Occasional, Ur Squamous Epith Cells Occasional, Urine Opiates Screen Negative, Urine Methadone Screen Negative, Ur Barbituates Screen Negative, Ur Phencyclidine Scrn Negative, Ur Amphetamines Screen Negative, U Benzodiazepines Scrn Negative, Urine Cocaine Screen Negative, U Marijuana (THC) Screen Negative 08/25/23 05:10: WBC 15.2 H, RBC 4.34, Hgb 12.0 L, Hct 35.7 L, MCV 82.2, MCH 27.6, MCHC 33.6, RDW 15.5, Plt Count 208, MPV 9.5, Neut % (Auto) 83.5 H, Lymph % (Auto) 11.7, Creek % (Auto) 3.2, Eos % (Auto) 1.3, Baso % (Auto) 0.2, Neut # (Auto) 12.7 H, Lymph # (Auto) 1.8, Creek # (Auto) 0.5, Eos # (Auto) 0.2, Baso # (Auto) 0.0, Total Counted 100, Neutrophils % (Manual) 80 H, Lymphocytes % (Manual) 14, Monocytes % (Manual) 4, Eosinophils % (Manual) 2, Platelet Estimate Normal, Microcytosis 1+, Sodium 135 L, Potassium 3.7, Chloride 107, Carbon Dioxide 21 L, Anion Gap 10.7, BUN 5 L, Creatinine 0.40 L, Estimated Creat Clear 347 H, Estimated GFR 203, Est GFR (
== END 2023-08-25 12:00 | disposition home or self-care (01) ==
LOC: OBOUT 05:02 → OB 05:02
PROVIDERS: Admitting Provider Obstetrics & Gynecology; PCP Obstetrics & Gynecology; Visit Provider Obstetrics & Gynecology
DX: O09.892 Supervision of other high risk pregnancies, second trimester (principal); Z3A.26 26 weeks gestation of pregnancy; O26.899 Other specified pregnancy related conditions, unspecified trimester; R10.9 Unspecified abdominal pain; D72.829 Elevated white blood cell count, unspecified
CPT/HCPCS: 76816; 76817; 80053; 80305; 81001; 82731; 85007; 85025; 87086; G0378; G0463

== ENCOUNTER 2023-08-26 09:07 | Outpatient (CLI) | payer MEDICAID, SELFPAY ==
[2023-08-26 09:15] VITALS: BP 122/77; PULSE 89; RESP 18; TEMP 36.8; O2SAT 97; BMI 38.9
== END 2023-08-26 09:35 | disposition home or self-care (01) ==
LOC: OBOUT 09:09 → OB 09:10
PROVIDERS: PCP Emergency Medicine; Visit Provider Obstetrics & Gynecology
DX: O26.892 Other specified pregnancy related conditions, second trimester (principal); Z3A.26 26 weeks gestation of pregnancy
CPT/HCPCS: 96372; G0463

== ENCOUNTER 2023-08-27 13:09 | Outpatient (CLI) | payer MEDICAID, SELFPAY ==
[2023-08-27 13:40] VITALS: BP 118/60; PULSE 92; RESP 16; TEMP 36.8; O2SAT 99; BMI 39.4
== END 2023-08-27 14:05 | disposition home or self-care (01) ==
LOC: OBOUT 13:11 → OB 13:12
PROVIDERS: PCP Emergency Medicine; Visit Provider Obstetrics & Gynecology
DX: O36.8120 Decreased fetal movements, second trimester, not applicable or unspecified (principal); Z3A.26 26 weeks gestation of pregnancy
CPT/HCPCS: 59025

== ENCOUNTER → 2023-08-31 06:56 | Outpatient (CLI) | payer MEDICAID, SELFPAY ==
[2023-08-31 07:41] LABS: Basophils % 0.3 % (0.1-2.0); Eosinophils # 0.2 K/mm3 (0.0-0.4); Hematocrit 37.6 % (37.0-47.0); Hemoglobin 12.2 g/dL (12.2-16.2); Lymphocytes # 3.5 K/mm3 (0.7-4.5); Lymphocytes % 21.9 % (10-50); Mean Corpuscular HGB Conc 32.6 g/dL (31.8-35.4); Mean Corpuscular Hemoglobin 26.7 pg (27.0-31.2); Mean Platelet Volume 8.6 fl (7.4-10.4); Monocytes # 0.7 K/mm3 (0.1-1.0); Monocytes % 4.5 % (1.7-9.3); Neutrophils # 11.5 K/mm3 (1.8-7.8); Neutrophils % 72.4 % (37.0-80.0); Platelet Count 242 K/mm3 (142-424); Red Blood Count 4.58 M/mm3 (4.20-5.40); Red Cell Distribution Width 15.5 % (11.5-17.5); White Blood Count 15.8 K/mm3 (4.5-13.0)
[2023-08-31 07:43] LABS: MANUAL DIFFERENTIAL MANUAL DIFFERENTIAL (MANUAL DIFF)
[2023-08-31 07:50] LABS: Glucose,Fasting 97 mg/dl (74-100)
[2023-08-31 08:55] LABS: Glucose 1 Hour 144 mg/dL (74-100)
[2023-08-31 09:13] LABS: Eosinophils % 1 % (0-3); Lymphocytes % 29 % (10-50); Monocytes % 3 % (2-9); Neutrophils % 67 % (42-76); Platelet Estimate Normal; RBC Morphology Normal; Total Cells Counted 100
== END ==
PROVIDERS: PCP Internal Medicine; Visit Provider Obstetrics & Gynecology
DX: Z34.92 Encounter for supervision of normal pregnancy, unspecified, second trimester (principal); Z3A.26 26 weeks gestation of pregnancy
CPT/HCPCS: 36415; 82951; 85007; 85025

== ENCOUNTER → 2023-09-01 06:56 | Outpatient (CLI) | payer MEDICAID, SELFPAY ==
[2023-09-01 07:29] LABS: Glucose,Fasting 88 mg/dl (74-100)
[2023-09-01 10:01] LABS: Glucose 2 Hour 113 mg/dL (74-100)
[2023-09-01 11:11] LABS: Glucose 1 Hour 123 mg/dL (74-100); Glucose 3 Hour 103 mg/dL (74-100)
== END ==
PROVIDERS: PCP Internal Medicine; Visit Provider Obstetrics & Gynecology
DX: Z34.92 Encounter for supervision of normal pregnancy, unspecified, second trimester (principal); Z3A.26 26 weeks gestation of pregnancy
CPT/HCPCS: 36415; 82951

== ENCOUNTER 2023-10-04 13:39 | Outpatient (CLI) | payer MEDICAID, SELFPAY ==
--- NOTE | 2023-10-04 13:40 | US_ITS ---
PROCEDURE: US OB BIOPHYSICAL PROFILE CLINICAL INDICATION: SGA COMPARISON: Ultrasound 08/25/2023 FINDINGS: Transabdominal sonographic images of the uterus were obtained. From her established due date she is 31weeks 5days. The following parameters are obtained: Viable fetus in the cephalic presentation with a posterior placenta grade 2 Average ultrasound age is 32weeks 0 days. Estimated due date by ultrasound is 11/29/2023. Estimated weight is 4lb 0 oz, 1812 grams. The cervix measures 2.8 cm. heart rate: 142bpm bpm. BPD: 32 weeks 0 days HC: 32 weeks 2 days AC: 31 weeks 3 days FL: 31 weeks 6 days HC/AC: 1.07 FL/BPD: 0.77 FL/AC: 0.22 37 percentile Amniotic fluid index: 8.53cm, MVP 3.76 cm. Qualitative AFV: 2 breathing movements: 2 Gross body movements: 2 Tone: 2 Biophysical profile score: 8 Doppler evaluation of the umbilical artery: SD ratio: 2.25-3.4 No obvious anomalies evident.Kidneys, stomach, bladder, four-chamber heart, three-vessel cord appear normal. IMPRESSION: 1. Viable fetus in the cephalic presentation with a posterior placenta grade 2. 2. The fluid is within normal limits with an amniotic fluid index of 8.53 cm, MVP 3.76 cm. 3. Biophysical profile 05/10 with good breathing movement seen. SD ratio normal. 4. There has been good interval growth with the fetus currently 37th percentile. Dictated by: Vivek Loja MD 10/04/2023 15:38 Vivek Loja MD in [facility] 10/04/2023 15:38
== END 2023-10-04 23:59 ==
LOC: RAD 13:40
PROVIDERS: PCP Emergency Medicine; Visit Provider Obstetrics & Gynecology
DX: O36.5930 Maternal care for other known or suspected poor fetal growth, third trimester, not applicable or unspecified (principal); Z3A.31 31 weeks gestation of pregnancy
CPT/HCPCS: 76816; 76819; 76820

== ENCOUNTER 2023-11-09 16:45 | Outpatient (CLI) | payer MEDICAID, SELFPAY | END 2023-11-09 23:59 | LOC: LAB.DROPOF 16:45 | PROVIDERS: PCP Obstetrics & Gynecology; Visit Provider Obstetrics & Gynecology | DX: Z3A.34 34 weeks gestation of pregnancy (principal); Z34.83 Encounter for supervision of other normal pregnancy, third trimester | CPT/HCPCS: 86403 ==

== ENCOUNTER 2023-11-24 20:38 | Outpatient (CLI) | payer MEDICAID, SELFPAY ==
[2023-11-24 20:52] VITALS: BMI 42.0
[2023-11-24 21:06] VITALS: BMI 42.0
[2023-11-24 21:06] LABS: Microscopic, Urine URINE MICROSCOPIC (MICROSCOPIC)
[2023-11-24 21:07] LABS: Appearance,Urine CLEAR (Clear); Bilirubin,Urine Negative (Negative); Blood, Urine Negative (Negative); Color,Urine YELLOW (Yellow); Glucose,Urine (UA) Negative (Negative); Ketones,Urine Negative (Negative); Leukocyte Esterase,Urine TRACE (Negative); Nitrate,Urine Negative (Negative); Protein,Urine Negative (Negative); Urobilinogen,Urine 0.2 EU/dl (0.2)
[2023-11-24 21:18] LABS: Benzodiazepines Screen,Urine Negative ng/ml (<200)
[2023-11-24 21:19] LABS: Barbiturates Screen,Urine Negative ng/ml (<200)
[2023-11-24 21:20] LABS: Cannabinoid Screen,Urine Negative ng/ml (<50); Cocaine Screen,Urine Negative ng/ml (<300)
[2023-11-24 21:22] LABS: Opiate Screen,Urine Negative ng/ml (<300); Phencyclidine Screen,Urine Negative ng/ml (<25)
[2023-11-24 21:25] LABS: Amphetamine/Metha Screen,Urine Negative ng/ml (<1000); Methadone Screen,Urine Negative ng/ml (<300)
[2023-11-24 21:27] LABS: Bacteria,Urine Trace /lpf
== END 2023-11-24 21:48 | disposition home or self-care (01) ==
LOC: OBOUT 20:40 → OB 20:41
PROVIDERS: PCP Physician Assistant; Visit Provider Nurse Practitioner Obstetrics & Gynecology
DX: O26.893 Other specified pregnancy related conditions, third trimester (principal); R10.2 Pelvic and perineal pain; M54.50 Low back pain, unspecified; Z3A.39 39 weeks gestation of pregnancy
CPT/HCPCS: 80307; 81001

== ENCOUNTER 2023-12-01 14:49 | Inpatient (IN) | payer MEDICAID, SELFPAY ==
--- NOTE | 2023-12-01 14:58 | P.CONPHA_ITS ---
Pharmacy Intervention Comments: MEDICATION RECONCILIATION COMPLETED ON PATIENT USING EXTERNAL FILL HISTORY FROM PHARMACY AND LIST FROM ANALYST PROGRAMMER OFFICE. -MODESTA BOWMAND
--- NOTE | 2023-12-01 14:58 | HMH.PHAINT1 ---
Pharmacy Intervention Comments: MEDICATION RECONCILIATION COMPLETED ON PATIENT USING EXTERNAL FILL HISTORY FROM PHARMACY AND LIST FROM MACHINIST JOB SETTER OFFICE. -MODESTA BOWMAND
[2023-12-01 15:38] VITALS: BMI 43.3
[2023-12-01 16:31] LABS: Microscopic, Urine URINE MICROSCOPIC (MICROSCOPIC)
[2023-12-01 16:33] LABS: Appearance,Urine CLEAR (Clear); Bilirubin,Urine Negative (Negative); Blood, Urine Negative (Negative); Color,Urine YELLOW (Yellow); Glucose,Urine (UA) Negative (Negative); Ketones,Urine Negative (Negative); Leukocyte Esterase,Urine Negative (Negative); Nitrate,Urine Negative (Negative); Protein,Urine Negative (Negative); Specific Gravity, Urine >= 1.030 (1.005-1.030); Urobilinogen,Urine 0.2 EU/dl (0.2)
[2023-12-01 16:36] LABS: Basophils # 0.1 K/mm3 (0-0.2); Basophils % 0.4 % (0.1-2.0); Eosinophils # 0.1 K/mm3 (0.0-0.4); Eosinophils % 0.7 % (0.1-12.0); Hemoglobin 12.1 g/dL (12.2-16.2); Lymphocytes # 2.2 K/mm3 (0.7-4.5); Lymphocytes % 15.8 % (10-50); Mean Corpuscular HGB Conc 31.9 g/dL (31.8-35.4); Mean Corpuscular Hemoglobin 26.4 pg (27.0-31.2); Mean Corpuscular Volume 82.8 fl (81-99); Mean Platelet Volume 10.4 fl (7.4-10.4); Monocytes # 0.8 K/mm3 (0.1-1.0); Monocytes % 5.8 % (1.7-9.3); Neutrophils # 10.6 K/mm3 (1.8-7.8); Neutrophils % 77.4 % (37.0-80.0); Platelet Count 197 K/mm3 (142-424); Red Blood Count 4.59 M/mm3 (4.20-5.40); Red Cell Distribution Width 16.9 % (11.5-17.5); White Blood Count 13.7 K/mm3 (4.8-10.8)
[2023-12-01 16:46] LABS: Amphetamine/Metha Screen,Urine Negative ng/ml (<1000); Benzodiazepines Screen,Urine Negative ng/ml (<200)
[2023-12-01 16:47] LABS: Barbiturates Screen,Urine Negative ng/ml (<200); Cannabinoid Screen,Urine Negative ng/ml (<50)
[2023-12-01 16:48] LABS: Cocaine Screen,Urine Negative ng/ml (<300)
[2023-12-01 16:49] LABS: Opiate Screen,Urine Negative ng/ml (<300)
[2023-12-01 16:50] LABS: Phencyclidine Screen,Urine Negative ng/ml (<25)
[2023-12-01 16:53] LABS: Methadone Screen,Urine Negative ng/ml (<300)
[2023-12-01 17:09] LABS: Bacteria,Urine Trace /lpf; Calcium Oxalate Crystals,Urine 2+ /lpf; WBC,Urine Occasional #/hpf (0-3)
[2023-12-01 17:35] VITALS: BP 137/87; PULSE 111; RESP 18; TEMP 36.5; O2SAT 98; BMI 43.3
[2023-12-01] MEDS: FAMOTIDINE 20MG TABLET 20 MG PO (20:31)
[2023-12-01] MEDS: miSOPROStol 100MCG TABLET 50 MCG VG (22:56)
[2023-12-02] MEDS: ONDANSETRON 4MG/2ML VIAL 4 MG IV ×2 (03:02→15:15)
[2023-12-02] MEDS: OXYTOCIN/RINGERS LACTATE 30 UNITS/500 ML BAG IV (04:09)
[2023-12-02] MEDS: DEXTROSE 5%-LACTATED RINGERS 1,000 ML 125 ML IV (04:09)
[2023-12-02] MEDS: LACTATED RINGERS 1000ML 1,000 ML 250 ML IV (04:09)
--- NOTE | 2023-12-02 08:33 | P.HP_ITS ---
OB - H&P: HPI Antepartum History of Present Illness Chief complaint: Induction of labor History of present illness: Heaven is a very pleasant 23 yo at 40w1d, by LMP and confirmed by 1st trimester ultrasound, who presents to [facility] L[facility]D for scheduled elective induction of labor. She has had good care. baby is active. Admits to irregular contractions and pelvic pressure. No leakage of fluid or vaginal bleeding. History of Present Criteria for establishing EDC:: LMP confirmed by 1st trimester US care: good care Ultrasounds: normal mid trimester US Obstetrical complications: none Medical complications: none Labs Blood type: O (+) positive Rubella: nonimmune RPR/VDRL: nonreactive GBS status: negative HBsAG: negative PFSH PFS Disclaimer: The information contained in this section may have been updated after the patient was seen, as this information can be updated by other users. Medical History (Updated 12/02/23 @ 08:40 by Dorinda Yuan DO) Anxiety Asthma Breast pain Constipation during , antepartum Depression Encounter for induction of labor Maternal obesity affecting , antepartum Migraine Polycystic ovary syndrome Postmaturity , 40-42 weeks gestation Rubella non-immune status, antepartum Vaginal bleeding affecting early Surgical History S/P wisdom tooth extraction Family History Grandmother Cancer Social History (Updated 12/01/23 @ 19:11 by Helen Olivia RN) Smoking Status: Former smoker tobacco type: e-cigarettes second hand exposure: No alcohol intake: never substance use type: denies use current occupational status: unemployed Travel in the last 8 weeks: None household members: other housing: house Review of Systems Review of Systems Review of systems:: pertinent systems reviewed and negative unless documented below *Genitourinary Comments: + irregular contractions, pelvic pressure Meds Home Medications and Allergies Home Medications Medication Instructions Recorded Confirmed Type famotidine 20 mg tablet (Pepcid) 20 mg PO BID Acid Reflux 12/01/23 12/01/23 Hist ory vits no.126-ferrous fum 1 tab PO DAILY Supplement 12/01/23 12/01/23 History 28 mg iron-folic acid 800 mcg tablet (Classic ) New Prescriptions to Start Prescriptions: Allergies Allergy/AdvReac Type Severity Reaction Status Date / Time No Known Allergies Allergy Verified 11/28/23 08:45 OB - H&P: Exam Physical Exam Vital signs: Temp Pulse Resp BP Pulse Ox O2 Del Method 97.7 F 111 H 18 137/87 98 Room Air 12/01/23 17:35 12/01/23 17:35 12/01/23 17:35 12/01/23 17:35 12/01/23 17:35 12/01/23 17:35 Constitutional no acute distress and cooperative Routine HEENT Exam Head: Present normocephalic and atraumatic Eye: Absent conjunctivae pink ENT: Present mucous membranes moist and dentition normal Routine Neck Exam Present full ROM Routine Respiratory Exam Present CTA bilaterally and normal respiratory effort Routine Cardiovascular Exam Present RRR Routine Abdominal Exam Present soft (Gravid); Absent tenderness Routine Rectal Exam Patient deferred: visual exam Routine Exam External: Present normal urethra appearance; Absent erythema, lesions, lacerations or vulvar erythema Routine Extremities Exam Present full ROM; Absent edema or calf tenderness Routine Neurological Exam Present alert, moving all extremities and normal speech Routine Psychiatric Exam Present normal affect and cooperative Detailed Labor and Delivery Exam Dilation (cm): 4 Effacement (%): 80 Cervix position: anterior station: -2 Consistency: soft Membranes: artificially ruptured Amniotic fluid: clear Baseline heart rate: 130 monitor accelerations: Present monitor decelerations: None rodent exterminator variability: Moderate (11-25) Contraction frequency (min): 3 OB - Results Labs Labs: Short CBC 12/01/23 Range/Units Unknown WBC 13.7 H (4.8-10.8) K/mm3 Hgb 12.1 L (12.2-16.2) g/dL Hct 38.0 (37.0-47.0) % Plt Count 197 (142-424) K/mm3 Urine 12/01/23 Range/Units 15:45 Urine Color Yellow (Yellow) Urine Appearance Clear (Clear) Urine pH 6.0 (5.0-8.5) Ur Specific Seth >= 1.030 (1.005-1.030) Urine Protein Negative (Negative) Urine Glucose (UA) Negative (Negative) OB - A/P Antepartum (1) Postmaturity , 40-42 weeks gestation: Status: Acute (2) Encounter for induction of labor: Status: Acute (3) Maternal obesity affecting , antepartum: Status: Acute (4) Tobacco use affecting , antepartum: Problem details: electronic cigarette Status: Acute (5) Rubella non-immune status, antepartum: Status: Acute Additional Plan Planning to breastfeed?: Yes Additional Information:: Admit to [facility] L[facility]D for induction of labor with Cytotec followed by Pitocin GBS negative Close monitoring Anticipate
--- NOTE | 2023-12-02 09:33 | EXP.ANES.CKL ---
[facility] Disclaimer: The information contained in this section may have been updated after the patient was seen, as this information can be updated by other users. Medical History (Updated 12/02/23 @ 08:40 by Dorinda Yuan DO) Anxiety Asthma Breast pain Constipation during , antepartum Depression Encounter for induction of labor Maternal obesity affecting , antepartum Migraine Polycystic ovary syndrome Postmaturity , 40-42 weeks gestation Rubella non-immune status, antepartum Vaginal bleeding affecting early Surgical History S/P wisdom tooth extraction Family History Grandmother Cancer Social History (Updated 12/01/23 @ 19:11 by Helen Olivia RN) Smoking Status: Former smoker tobacco type: e-cigarettes second hand exposure: No alcohol intake: never substance use type: denies use current occupational status: unemployed Travel in the last 8 weeks: None household members: other housing: house [facility] Anesthesia Checklist Patient Identification Patient Identification: Arm Band and Verbal (Name & ) Structural Data Admitted From: Inpatient Planned Operative Procedure/s: Labor epidural Consent for Planned Operative Procedure(s) Verified: Yes NPO Status Verified Time NPO: 00:00 Chart Verification Results Verified: CBC Additional verifications Anesthesia Reactions: No Airway Assessment Mallampati Score:: Class III C-Spine Mobility Assessed: Yes TMJ Mobility Assessed: Yes Dentition: Good Dentition Neurological Assessment Level of Consciousness: Awake Hx Seizures: No Numbness or tingling in extremities: No Anesthesia Plan Anesthesia Risk discussed: Yes Anesthesia Plan: Verified ASA Class: III Anesthesia Type: Epidural
--- NOTE | 2023-12-02 13:25 | PC.NURSE ---
DR. DONOVAN AT THE BEDSIDE.
[2023-12-02] MEDS: METHYLERGONOVINE MALEATE 0.2MG/ML INJ 0.200000000000000011 MG IM (14:04)
[2023-12-02] MEDS: OXYTOCIN 10 UNITS/ML VIAL 10 UNIT IM (14:06)
[2023-12-02] MEDS: OXYTOCIN/RINGERS LACTATE 30 UNITS/500 ML BAG 40 UNITS IV (14:08)
[2023-12-02] MEDS: TRANEXAMIC ACID 1,000 MG in 0.9 % SODIUM CHLORIDE 250 ML 500 MG IV (14:16)
[2023-12-02] MEDS: LACTATED RINGERS 1000ML 1,000 ML 999 ML IV (14:18)
--- NOTE | 2023-12-02 16:02 | EXP.DN ---
Delivery Note Delivery Date:: 12/02/23 Delivery Time:: 13:47 Anesthesia Type: Epidural Was labor medically induced?: No Induction method: per misoprostol protocol Gestational age (weeks): 40 delivered prior to 39 weeks?: No Gender: Male at 1 minute: 7 at 5 minutes: 8 Delivery Procedure:: Mom complete with epidural but epidural was no longer providing pain relief. Pushed for approximately 1 hour 17 minutes. Head delivered spontaneously over intact perineum in MARICHUY position. Nuchal cord x 1 easily reduced. Anterior shoulder delivered with gentle downward pressure. Posterior shoulder and remainder of body delivered spontaneously. Baby placed on maternal abdomen, mouth and nares bulb suctioned, warmed/dried and stimulated. Delayed cord clamping was performed for 60 seconds. Cord was clamped and cut by father of baby. Cord blood was obtained. Placenta delivered spontaneously and intact but required vigorous uterine massage. First degree perineal lacerations and left labial laceration repaired with 3-0 Vicryl. Hemostasis noted. Mom and baby were skin to skin and doing well after delivery. Live male baby (baby's name is Adolfo) APGARs 7 (1 min), 9 (5 min) EBL 800 mL IV was no longer working. She received Pitocin IM, Methergine IM and TXA. Repeat IV access was successful and second IV was started. Laceration:: labial Placental Delivery Description: Spontaneous
[2023-12-02] MEDS: BENZOCAINE-MENTHOL SPRAY 56GM CAN TP (19:15)
[2023-12-02] MEDS: WITCH HAZEL 40 PADS/BOX 1 EACH TP (19:15)
[2023-12-02 20:15] VITALS: BP 130/77; PULSE 109; RESP 18; TEMP 36.7; O2SAT 97
[2023-12-02] MEDS: ACETAMINOPHEN 500MG TAB 1000 MG PO (21:30)
[2023-12-02] MEDS: IBUPROFEN 400 MG TABLET 800 MG PO (21:30)
[2023-12-03] VITALS (19 sets, daily range): BP systolic 110–136; BP diastolic 54–69; PULSE 97–111; RESP 16–22; TEMP 36.4–37; O2SAT 97–100
[2023-12-03] MEDS: ONDANSETRON 4MG/2ML VIAL 4 MG IV (03:05)
[2023-12-03] MEDS: ACETAMINOPHEN 500MG TAB 1000 MG PO (05:13)
[2023-12-03] MEDS: IBUPROFEN 400 MG TABLET 800 MG PO ×2 (05:13→17:06)
[2023-12-03 08:45] LABS: Basophils % 0.2 % (0.1-2.0); Eosinophils # 0.1 K/mm3 (0.0-0.4); Eosinophils % 0.3 % (0.1-12.0); Hematocrit 23.1 % (37.0-47.0); Hemoglobin 7.4 g/dL (12.2-16.2); Lymphocytes # 3.6 K/mm3 (0.7-4.5); Lymphocytes % 23.2 % (10-50); Mean Corpuscular HGB Conc 31.9 g/dL (31.8-35.4); Mean Corpuscular Hemoglobin 26.9 pg (27.0-31.2); Mean Corpuscular Volume 84.2 fl (81-99); Mean Platelet Volume 9.9 fl (7.4-10.4); Monocytes % 6.5 % (1.7-9.3); Neutrophils # 10.8 K/mm3 (1.8-7.8); Neutrophils % 69.8 % (37.0-80.0); Platelet Count 198 K/mm3 (142-424); Red Blood Count 2.74 M/mm3 (4.20-5.40); Red Cell Distribution Width 17.1 % (11.5-17.5); White Blood Count 15.5 K/mm3 (4.8-10.8)
[2023-12-03 08:49] LABS: MANUAL DIFFERENTIAL MANUAL DIFFERENTIAL (MANUAL DIFF)
[2023-12-03 10:49] LABS: Eosinophils % 1 % (0-3); Lymphocytes % 28 % (10-50); Monocytes % 3 % (2-9); Neutrophils % 61 % (42-76); Total Cells Counted 100
[2023-12-03 10:52] LABS: Platelet Estimate Normal; RBC Morphology Normal
--- NOTE | 2023-12-03 10:58 | P.PN_ITS ---
Subjective *Date: 12/03/23 *Time: 10:58 Interval history: PPD # 1 Heaven is doing okay this morning. Pain controlled. She is pumping and formula feeding. Lochia appropriate this morning. She admits she feels dizzy when up and ambulating. She admits her anxiety was increased last night with the worry about hemorrhage after delivery. Anxiety is much better this morning. Voiding without difficulty and passing flatus. Tolerating regular diet. Denies fever/chills, chest pain and shortness of breath. No headaches, vision changes, lightheadedness/dizziness. No lower extremity swelling. Medical Exam Vital signs and Labs for Last 24 Hours: Vital Signs Temp Pulse Resp BP Pulse Ox O2 Del Method 12/02/23 20:15 98.0 F 109 H 18 130/77 97 Room Air Laboratory Results - last 24 hr 12/03/23 07:28: WBC 15.5 H, RBC 2.74 L D, Hgb 7.4 L, Hct 23.1 L, MCV 84.2, MCH 26.9 L, MCHC 31.9, RDW 17.1, Plt Count 198, MPV 9.9, Neut % (Auto) 69.8, Lymph % (Auto) 23.2, [place] % (Auto) 6.5, Eos % (Auto) 0.3, Baso % (Auto) 0.2, Neut # (Auto) 10.8 H, Lymph # (Auto) 3.6, [place] # (Auto) 1.0, Eos # (Auto) 0.1, Baso # (Auto) 0.0, Total Counted 100, Neutrophils % (Manual) 61, Band Neutrophils % 6.0, Lymphocytes % (Manual) 28, Monocytes % (Manual) 3, Eosinophils % (Manual) 1, Metamyelocytes % 1.0, Platelet Estimate Normal, RBC Morphology Normal I & O for Labs for Last 24 Hours: Intake & Output 11/30/23 12/01/23 12/02/23 12/03/23 23:59 23:59 23:59 23:59 Weight 237 lb Comment:: + skin appears pale Head: Present atraumatic and normocephalic ENT: Present mucous membranes moist and other (gums and lips pale) Neck: Present full ROM Respiratory: Present CTA bilaterally and normal respiratory effort Cardiac: Present Reg Rate and Rhythm GI: Present soft; Absent distention or tenderness Comments:: Uterine fundus firm and below umbilicus Rectal (female): Present deferred (female): Present deferred Extremities: Present full ROM; Absent edema or calf tenderness Neuro: Present alert, awake and moves all extremities Assessment and Plan *Assessment and plan (1) Status post vaginal delivery: Status: Acute Category: Surgical (2) hemorrhage: Status: Acute Category: Medical Code(s): O72.1 - Other immediate hemorrhage (3) Acute post-hemorrhagic anemia: Status: Acute Category: Medical Code(s): D62 - Acute posthemorrhagic anemia (4) Postmaturity , 40-42 weeks gestation: Status: Acute Category: Medical Code(s): O48.0 - Post-term (5) Encounter for induction of labor: Status: Acute Category: Medical Code(s): Z34.90 - Encounter for supervision of normal , unspecified, unspecified trimester (6) Maternal obesity affecting , antepartum: Status: Acute Qualifiers: Obesity type affecting : unspecified obesity Qualified Code(s): O99.210 - Obesity complicating , unspecified trimester Category: Medical Code(s): O99.210 - Obesity complicating , unspecified trimester (7) Tobacco use affecting , antepartum: Problem Comment: electronic cigarette Status: Acute Category: Medical Code(s): O99.330 - Smoking (tobacco) complicating , unspecified trimester (8) Rubella non-immune status, antepartum: Status: Acute Category: Medical Code(s): O09.899 - Supervision of other high risk pregnancies, unspecified trimester; Z28.39 - Other underimmunization status Plan AM Hgb 7.4 (12.1 on admission). She is symptomatic with dizziness. She is pale on exam - Venofer 200 mg IV and 2 units PRBCs ordered Continue routine care Plan d/c home PPD # 2 or PPD # 3
[2023-12-03] MEDS: IRON SUCROSE COMPLEX 200 MG in 0.9 % SODIUM CHLORIDE 100 ML 220 MG IV (16:05)
[2023-12-03] MEDS: WITCH HAZEL 40 PADS/BOX 1 EACH TP (17:09)
[2023-12-03] MEDS: BENZOCAINE-MENTHOL SPRAY 56GM CAN TP (17:11)
[2023-12-03 18:43] LABS: Hematocrit 29.9 % (37.0-47.0)
[2023-12-03 18:50] LABS: Hemoglobin 10.2 g/dL (12.2-16.2)
[2023-12-04] MEDS: IBUPROFEN 400 MG TABLET 800 MG PO ×2 (00:37→12:06)
[2023-12-04] MEDS: SENNA 8.6MG TABLET 8.59999999999999964 MG PO (04:04)
--- NOTE | 2023-12-04 08:18 | P.DS_ITS ---
General Admission date:: 12/01/23 Discharge date: 12/04/23 HPI HPI HPI: PPD # 2 s/p Feeling well. Pain controlled. Formula feeding. Light lochia. Voiding without difficulty and passing flatus. Tolerating regular diet. Denies fever/chills, chest pain and shortness of breath. No headaches, vision changes, lightheadedness/dizziness. Admits to lower extremity swelling that is improving. Ambulating well ad gerardo. Hospital Course Hospital Course Hospital Course: Heaven is a very pleasant 23 yo at 40w1d, by LMP and confirmed by 1st trimester ultrasound, who presented to [facility] L[facility]D for scheduled elective induction of labor. She has had good care. GBS negative. She underwent induction of labor with Cytotec followed by Pitocin. She had a normal spontaneous delivery on 12/02/23 at 1347. She delivered a live male baby, Adolfo, weighing 7 lb 10 oz. APGARs 7 (1 min), 8 (5 min). EBL 800 mL. QBL 859 mL. PPD # 1 she was experiencing dizziness and lightheadedness with ambulating. Pain was controlled. Lochia was appropriate. Formula feeding. Voiding without difficulty and passing flatus. Tolerating regular diet. Denied fever/chills, chest pain and shortness of breath. No headaches or vision changes. AM Hgb 7.4 (12.1 on admission). She received 2 units PRBCs and Venofer 200 mg IV. Hgb after transfusion was 10.2. Heaven felt much better. PPD # 2 she was feeling well. Pain controlled. Formula feeding. Light lochia. Voiding without difficulty and passing flatus. Tolerating regular diet. Denies fever/chills, chest pain and shortness of breath. No headaches, vision changes, lightheadedness/dizziness. Admits to lower extremity swelling that is improving. Vital signs stable, afebrile. Heart regular rate and rhythm. Lungs clear to auscultation. Abdomen soft, nontender. She has =1 bilateral lower extremity edema. No calf tenderness to palpation. Ambulating well ad gerardo. She was discharged home on PPD #2 with instructions to follow-up in the office in 2 weeks or sooner if needed. Exam Data for Last 24 hours Vital signs and Labs for Last 24 Hours: Temp Pulse Resp BP Pulse Ox O2 Del Method 98.2 F 105 H 18 130/69 99 Room Air 12/03/23 16:45 12/03/23 16:45 12/03/23 16:45 12/03/23 16:45 12/03/23 16:45 12/02/23 20:15 Laboratory Results - last 24 hr 12/01/23 16:19: Blood Type O Positive, Antibody Screen Negative, Crossmatch (AHG) See Detail 12/03/23 07:28: WBC 15.5 H, RBC 2.74 L D, Hgb 7.4 L, Hct 23.1 L, MCV 84.2, MCH 26.9 L, MCHC 31.9, RDW 17.1, Plt Count 198, MPV 9.9, Neut % (Auto) 69.8, Lymph % (Auto) 23.2, [place] % (Auto) 6.5, Eos % (Auto) 0.3, Baso % (Auto) 0.2, Neut # (Auto) 10.8 H, Lymph # (Auto) 3.6, [place] # (Auto) 1.0, Eos # (Auto) 0.1, Baso # (Auto) 0.0, Total Counted 100, Neutrophils % (Manual) 61, Band Neutrophils % 6.0, Lymphocytes % (Manual) 28, Monocytes % (Manual) 3, Eosinophils % (Manual) 1, Metamyelocytes % 1.0, Platelet Estimate Normal, RBC Morphology Normal 12/03/23 18:33: Hgb 10.2 L D, Hct 29.9 L I & O for Last 24 hours: Intake & Output 12/01/23 12/02/23 12/03/23 12/04/23 23:59 23:59 23:59 23:59 Intake Total 250 / 250 Balance 250 / 250 Weight 237 lb Constitutional Constitutional: no acute distress and cooperative *Routine HEENT Exam Head: Present normocephalic and atraumatic Eye: Absent conjunctivae pink ENT: Present mucous membranes moist *Routine Neck Exam Neck: Present full ROM *Routine Respiratory Exam Respiratory: Present CTA bilaterally and normal respiratory effort *Routine Cardiovascular Exam Cardiovascular: Present RRR *Routine Abdominal Exam Abdominal: Present soft; Absent tenderness or distended *Routine Rectal Exam Patient deferred: visual exam *Routine Exam Patient deferred: external exam *Routine Extremities Exam Extremities: Present edema (+1 bilateral lower extremity edema) and full ROM; Absent calf tenderness *Routine Neurological Exam Neurological: Present alert, moving all extremities and normal speech Routine Psychiatric Exam Psychiatric: Present normal affect and cooperative Results Data Completed and Pending Labs on day of discharge: Labs from last 24 hours 12/03/23 12/03/23 12/01/23 18:33 07:28 16:19 WBC 15.5 H RBC 2.74 L D Hgb 10.2 L D 7.4 L Hct 29.9 L 23.1 L MCV 84.2 MCH 26.9 L MCHC 31.9 RDW 17.1 Plt Count 198 MPV 9.9 Neut % (Auto) 69.8 Lymph % (Auto) 23.2 [place] % (Auto) 6.5 Eos % (Auto) 0.3 Baso % (Auto) 0.2 Neut # (Auto) 10.8 H Lymph # (Auto) 3.6 [place] # (Auto) 1.0 Eos # (Auto) 0.1 Baso # (Auto) 0.0 Total Counted 100 Neutrophils % (Manual) 61 Band Neutrophils % 6.0 Lymphocytes % (Manual) 28 Monocytes % (Manual) 3 Eosinophils % (Manual) 1 Metamyelocytes % 1.0 Platelet Estimate Normal RBC Morphology Normal Blood Type O Positive Antibody Screen Negative Crossmatch (AHG) See Detail DS: Diagnosis Discharge Diagnosis (1) Status post vaginal delivery: Status: Acute (2) hemorrhage: Status: Acute Code(s): O72.1 - Other immediate hemorrhage (3) Acute post-hemorrhagic anemia: Status: Acute Code(s): D62 - Acute posthemorrhagic anemia (4) Postmaturity , 40-42 weeks gestation: Status: Acute Code(s): O48.0 - Post-term (5) Encounter for induction of labor: Status: Acute Code(s): Z34.90 - Encounter for supervision of normal , unspecified, unspecified trimester (6) Maternal obesity affecting , antepartum: Status: Acute Code(s): O99.210 - Obesity complicating , unspecified trimester Qualifiers: Obesity type affecting : unspecified obesity Qualified Code(s): O99.210 - Obesity complicating , unspecified trimester (7) Tobacco use affecting , antepartum: Status: Acute Code(s): O99.330 - Smoking (tobacco) complicating , unspecified trimester Problem details: electronic cigarette (8) Rubella non-immune status, antepartum: Status: Acute Code(s): O09.899 - Supervision of other high risk pregnancies, unspecified trimester; Z28.39 - Other underimmunization status Meds Home Medications and Allergies Home Medications Medication Instructions Recorded Confirmed Type ibuprofen 800 mg tablet 800 mg PO Q8H PRN pain #20 tabs 12/04/23 Rx New Prescriptions to Start Prescriptions: Dorinda Hobson Allergies Allergy/AdvReac Type Severity Reaction Status Date / Time No Known Allergies Allergy Verified 11/28/23 08:45 Discharge Plan Disposition Patient Disposition: Home, Self-Care Condition: Good Discharge Order Discharge Orders: Discharge Order (Routine); Ordered 12/04/23 Ordered By: Dorinda Yuan Follow up Plan Prescriptions/Medication Reconciliation: New ibuprofen 800 mg tablet 800 mg PO Q8H PRN (Reason: pain) Qty: 20 0RF Discontinued famotidine [Pepcid] 20 mg tablet 20 mg PO BID Classic 28 mg iron- 800 mcg tablet 1 tab PO DAILY Problem Reconciliation Problems Reviewed?: Yes Patient Discharge Instructions ACTIVITY: Limited activity DIET: continue same diet and regular diet Additional Instructions: Discharge: 1. Take 800 mg Ibuprofen every 8 hours as needed for pain. You can also take 500-1000 mg of Tylenol in between doses, every 6-8 hours. 2. Nothing in the vagina for 6 weeks - no intercourse, douching or tampons. No tub baths/hot tubs or swimming pools 3. Reasons to return to L&D or call On-Call doctor - fever (greater than 100.4) - heavy vaginal bleeding (soaking through 1 pad in less than 2 hours) - vaginal discharge (malodorous and/or purulent) - severe headaches not resolved by medication or rest and leg tenderness/edema 4. depression/blues - Normal to feel anxious/overwhelmed for first 2 weeks - Talk to your doctor if: severe anxiety, trouble bonding with baby, withdrawing from other family members, thoughts of harming yourself or others Dorinda Yuan DO [facility] [phone] Providers Primary Care Provider: Provider,Referral Admit Provider: Dorinda Yuan Attending Provider: Dorinda Yuan
[2023-12-04] MEDS: WITCH HAZEL 40 PADS/BOX 1 EACH TP (12:08)
[2023-12-04] MEDS: MEASLES,MUMPS,RUBELLA VACCINE VIAL 0.5 ML SQ (15:31)
== END 2023-12-04 17:40 | disposition home or self-care (01) | DRG 806 ==
PROVIDERS: Admitting Provider Obstetrics & Gynecology; Visit Provider Obstetrics & Gynecology
DX: O48.1 Prolonged pregnancy (principal); D62 Acute posthemorrhagic anemia; Z37.0 Single live birth; O72.1 Other immediate postpartum hemorrhage; O69.1XX0 Labor and delivery complicated by cord around neck, with compression, not applicable or unspecified; Z3A.40 40 weeks gestation of pregnancy; O70.0 First degree perineal laceration during delivery; O99.214 Obesity complicating childbirth; O90.81 Anemia of the puerperium; O69.81X0 Labor and delivery complicated by cord around neck, without compression, not applicable or unspecified
CPT/HCPCS: 59409; 36415; 59025; 80307; 81001; 85007; 85014; 85018; 85025; 86850; 90707; 94761; G0283; J1756; J2405; P9016

== ENCOUNTER 2023-12-09 12:08 | Emergency (ER) | payer MEDICAID, SELFPAY ==
[2023-12-09 12:19] VITALS: BP 133/88; PULSE 98; RESP 16; TEMP 36.9; O2SAT 98; BMI 41.5
--- NOTE | 2023-12-09 12:27 | PC.NURSE ---
Rounded on pt to see if they needed anything. pt had no needs at this time.
--- NOTE | 2023-12-09 12:31 | CA_ITS ---
FINAL REPORT TECHNIQUE: Color Doppler, duplex Doppler and compression sonography of the left lower extremity deep venous systems was performed. CLINICAL HISTORY: 1 Week post leg swelling r/o dvt, COMPARISON: None FINDINGS: There is no evidence of deep venous thrombosis from the level of the groin to the calf. The veins are patent and compressible. IMPRESSION: No evidence of deep venous thrombosis left lower extremity. Reviewed, Interpreted and Dictated by Marcos Marie III, MD Transcribed by Francisca Chaudhry Authenticated and [facility]
[2023-12-09 12:32] VITALS: BP 136/91; PULSE 107; O2SAT 97
--- NOTE | 2023-12-09 12:34 | ED_ITS ---
Discharge Plan Disposition Patient Disposition: Home, Self-Care Prescriptions Prescriptions: No Action ibuprofen 800 mg tablet 800 mg PO Q8H PRN (Reason: pain) Qty: 20 0RF Referrals Follow up/Referrals: Provider,Referral, [Primary Care Provider] - See instructions Activity Restrictions/Add. Instructions Additional Instructions/Restrictions: No emergent medical condition identified please follow-up with your SOFTWARE ENGINEERING MANAGER doctor or your primary care doctor as previously instructed. Clinical Impressions Clinical Impression: edema, Left leg swelling Discharge ED Provider: Pilar Shay General Adult HPI General Chief complaint: Extremity Problem,Nontraumatic Stated complaint: left leg swollen Time Seen by Provider: 12/09/23 12:28 Mode of Arrival: Ambulatory Source of Information: Patient Limitations: No Limitations Description of Symptoms (Recalled from ER Triage Doc. by RN): pt c/o LLE edema. pt c/o numbness and tingling from her L thigh to her chen. pt is 1wk1d PP. pts ob wanted her to be evaluated for a blood clot. History of Present Illness HPI narrative: Patient is a 23-year-old female who is a G1, P1 1 week after normal vaginal delivery presents today with left lower extremity edema. States she had no significant edema during but had bilateral lower extremity edema left greater than right after . No history of preeclampsia eclampsia etc. She has had no shortness of breath chest pain or any other cardiopulmonary symptoms. No history of liver disease kidney disease she has not had any changes in urine output. Related Data Previous Rx's Medication Instructions Recorded ibuprofen 800 mg tablet 800 mg PO Q8H PRN pain #20 tabs 12/04/23 Allergies Allergy/AdvReac Type Severity Reaction Status Date / Time No Known Allergies Allergy Verified 11/28/23 08:45 [facility] Disclaimer: The information contained in this section may have been updated after the patient was seen, as this information can be updated by other users. Medical History (Updated 12/09/23 @ 12:34 by Pilar Shay MD) Acute post-hemorrhagic anemia hemorrhage Encounter for induction of labor Postmaturity , 40-42 weeks gestation Constipation during , antepartum Rubella non-immune status, antepartum Maternal obesity affecting , antepartum Vaginal bleeding affecting early Breast pain Depression Anxiety Migraine Asthma Polycystic ovary syndrome Surgical History (Updated 12/08/23 @ 00:00 by Background Daemon) Status post vaginal delivery S/P wisdom tooth extraction Family History Grandmother Cancer Social History (Updated 12/01/23 @ 19:11 by Helen Olivia RN) Smoking Status: Never smoker second hand exposure: No alcohol intake: never substance use type: denies use current occupational status: unemployed Travel in the last 8 weeks: None household members: other housing: house ROS Obtained: Yes All systems reviewed & no additional complaints except as documented Physical Exam General General appearance: alert Respiratory Respiratory exam: Present normal lung sounds bilaterally; Absent respiratory distress Cardiovascular Cardiovascular exam: Present regular rate and normal rhythm Abdominal Exam Abdominal exam: Present soft; Absent distention or tenderness Extremities Exam Extremities exam: Present other (Bilateral lower extremity edema left greater than right normal pulses warm extremity) Neurological Exam Neurological exam: Present alert and oriented X3 Medical Decision Making Tomas Inquiry Pt receiving controlled substance: No Vital Signs: 12/09/23 12:19 12/09/23 12:32 12/09/23 13:21 Temperature 98.4 F Temperature Source Oral Pulse Rate 107 H 96 H Pulse Rate [Left] 98 H Respiratory Rate 16 Blood Pressure 136/91 H 121/78 Blood Pressure [Right Arm] 133/88 Blood Pressure Mean 106 92 Blood Pressure Mean [Right Arm] 103 Blood Pressure Source [Right Arm] Automatic Cuff Blood Pressure Position [Right Arm] Sitting 02 Sat by Pulse Oximetry 98 97 100 12/09/23 13:30 12/09/23 13:45 Temperature Temperature Source Pulse Rate 92 H 92 H Pulse Rate [Left] Respiratory Rate Blood Pressure 127/85 123/82 Blood Pressure [Right Arm] Blood Pressure Mean 94 95 Blood Pressure Mean [Right Arm] Blood Pressure Source [Right Arm] Blood Pressure Position [Right Arm] 02 Sat by Pulse Oximetry 100 99 Lab Data Lab results reviewed: Yes I reviewed the patient's lab results. Lab Results 12/09/23 13:20: WBC 9.2, RBC 3.83 L, Hgb 10.4 L, Hct 32.7 L, MCV 85.3, MCH 27.0, MCHC 31.7 L, RDW 16.8, Plt Count 318, MPV 8.5, Neut % (Auto) 72.5, Lymph % (Auto) 20.6, [place] % (Auto) 4.2, Eos % (Auto) 2.3, Baso % (Auto) 0.5, Neut # (Auto) 6.7, Lymph # (Auto) 1.9, [place] # (Auto) 0.4, Eos # (Auto) 0.2, Baso # (Auto) 0.1, PT 11.2, INR 1.04, Sodium 140, Potassium 3.6, Chloride 111 H, Carbon Dioxide 22, Anion Gap 10.6, BUN 9, Creatinine 0.70, Estimated Creat Clear 101, Estimated GFR 106, Est GFR ( Amer) 128, Glucose 99, Calcium 8.7, Total Bilirubin 0.4, AST 37 H, ALT 36, Alkaline Phosphatase 141 H, NT-Pro-B Natriuret Pep 163 H, Total Protein 6.2 L, Albumin 3.6, Globulin 2.6, Albumin/Globulin Ratio 1.4 12/09/23 14:26: Urine Color Yellow, Urine Appearance Sl cloudy, Urine pH 7.0, Ur Specific [place] 1.015, Urine Protein Trace, Urine Glucose (UA) Negative, Urine Ketones Negative, Urine Blood 3+, Urine Nitrate Negative, Urine Bilirubin Negative, Urine Urobilinogen 0.2, Ur Leukocyte Esterase 2+ A, Urine RBC 10-20, Urine WBC Tntc, Ur Squamous Epith Cells Occasional, Urine Bacteria 1+ 12/09/23 13:20 12/09/23 13:20 Orders (Tests/Meds): ORDERS Category Date Time Status BNP [Brain Natriuretic Peptide] Stat Lab 12/09/23 13:20 Completed CBC w/Auto Diff [Complete Blood Count Auto Diff] Stat Lab 12/09/23 13:20 Completed CMP [Comprehensive Metabolic Panel] Stat Lab 12/09/23 13:20 Completed PT INR [Prothrombin Time INR] Stat Lab 12/09/23 13:20 Completed UA [Urinalysis and Microscopic] Stat Lab 12/09/23 14:26 Completed Urine Culture Stat Micro 12/09/23 14:26 Received CA venous doppler LE LT Stat Y 12/09/23 12:31 Completed Medical Decision Narrative: Patient is a 23-year-old female presents today with left lower extremity swelling and edema. This is most likely volume redistribution and intrapartum fluids manifesting itself in addition to recent increased pressure and intrapelvic veins. Other things in the differential would include nephrotic syndrome protein wasting from that or cirrhosis cardiomyopathy DVT etc. will check basic blood work and left lower extremity DVT ultrasound and reassess. Reassessment 3:12 PM patient remains asymptomatic other than left lower extremity and right lower extremity swelling left greater than right. DVT ultrasound was performed which was negative for DVT. Labs otherwise unremarkable she does have a positive leukocyte esterase and numerous whites in her urine however I went and talked her further about this she still has no dysuria frequency urgency she has no urinary symptoms whatsoever. Likely contaminant. Will not treat for urinary tract infection. I was looking for proteinuria and significant protein losses which there is no significant evidence of at this point. She is been advised to follow-up with primary care doctor or her GARAGE ATTENDANT doctor for emergent medical condition identified today she was discharged in stable condition. Critical Care Critical Care Time Critical Care Time: No
--- NOTE | 2023-12-09 12:50 | PC.NURSE ---
TECHNICAL AGRONOMIST AT BEDSIDE FOR DOPPLER
[2023-12-09 13:21] VITALS: BP 121/78; PULSE 96; O2SAT 100
--- NOTE | 2023-12-09 13:23 | PC.NURSE ---
BLOOD SENT TO LAB
[2023-12-09 13:30] VITALS: BP 127/85; PULSE 92; O2SAT 100
[2023-12-09 13:44] LABS: Basophils # 0.1 K/mm3 (0-0.2); Basophils % 0.5 % (0.1-2.0); Eosinophils # 0.2 K/mm3 (0.0-0.4); Eosinophils % 2.3 % (0.1-12.0); Hematocrit 32.7 % (37.0-47.0); Hemoglobin 10.4 g/dL (12.2-16.2); Lymphocytes # 1.9 K/mm3 (0.7-4.5); Lymphocytes % 20.6 % (10-50); Mean Corpuscular HGB Conc 31.7 g/dL (31.8-35.4); Mean Corpuscular Volume 85.3 fl (81-99); Mean Platelet Volume 8.5 fl (7.4-10.4); Monocytes # 0.4 K/mm3 (0.1-1.0); Monocytes % 4.2 % (1.7-9.3); Neutrophils # 6.7 K/mm3 (1.8-7.8); Neutrophils % 72.5 % (37.0-80.0); Platelet Count 318 K/mm3 (142-424); Red Blood Count 3.83 M/mm3 (4.20-5.40); Red Cell Distribution Width 16.8 % (11.5-17.5); White Blood Count 9.2 K/mm3 (4.8-10.8)
[2023-12-09 13:45] VITALS: BP 123/82; PULSE 92; O2SAT 99
[2023-12-09 13:58] LABS: INR 1.04 (0.9-1.1); Prothrombin Time 11.2 seconds (10.1-12.5)
[2023-12-09 13:59] LABS: Alanine Aminotransferase 36 U/L (12-78); Albumin Level 3.6 g/dl (3.5-5.0); Albumin/Globulin Ratio 1.4 (1.1-1.8); Alkaline Phosphatase 141 U/L (38-126); Anion Gap 10.6 mEq/L (5-15); Aspartate Amino Transferase 37 U/L (14-36); Bilirubin,Total 0.4 mg/dl (0.2-1.3); Blood Urea Nitrogen 9 mg/dl (7-17); Calcium 8.7 mg/dl (8.4-10.2); Carbon Dioxide 22 mmol/L (22.0-30.0); Chloride 111 mmol/L (98-107); Creatinine Clearance Estimated 101 mL/min (50-200); Estimated Glomerular Filt Rate 106 ml/min (>60); GFR (African American) 128 ML/MIN (>60); Globulin 2.6 g/dL (1.3-3.2); Glucose 99 mg/dl (74-100); Potassium 3.6 mmoL/L (3.5-5.1); Sodium 140 mmol/L (136-145); Total Protein,Serum 6.2 g/dl (6.3-8.2)
[2023-12-09 14:08] LABS: NT Pro Brain Natriuretic Pep. 163 pg/mL (0-125)
[2023-12-09 14:29] LABS: Microscopic, Urine URINE MICROSCOPIC (MICROSCOPIC)
--- NOTE | 2023-12-09 14:29 | PC.NURSE ---
UPDATED PT ON POC, PEPSI PROVIDED. CALL LIGHT WITHIN REACH
[2023-12-09 14:42] LABS: Appearance,Urine SL CLOUDY (Clear); Bilirubin,Urine Negative (Negative); Blood, Urine 3+ (Negative); Color,Urine YELLOW (Yellow); Glucose,Urine (UA) Negative (Negative); Ketones,Urine Negative (Negative); Leukocyte Esterase,Urine 2+ (Negative); Nitrate,Urine Negative (Negative); Protein,Urine TRACE (Negative); Specific Gravity, Urine 1.015 (1.005-1.030); Urobilinogen,Urine 0.2 EU/dl (0.2)
--- NOTE | 2023-12-09 14:55 | PC.NURSE ---
ROUNDED ON PT, UPDATED THAT DR. FERRIS WILL BE IN SOON TO REEVALUATE PT AND DISCUSS LABS
--- NOTE | 2023-12-09 15:02 | PC.NURSE ---
Rounded on pt to see if they needed anything. pt had no needs at this time
[2023-12-09 15:03] LABS: Bacteria,Urine 1+ /lpf; Squamous Epithelial Cell,Urine Occasional #/hpf (0-5); WBC,Urine TNTC #/hpf (0-3)
--- NOTE | 2023-12-09 15:07 | PC.NURSE ---
DR FERRIS AT BEDSIDE TO UPDATE PT AND FAMILY
[2023-12-09 15:15] VITALS: BP 128/75; PULSE 90; RESP 18; TEMP 36.9; O2SAT 99
== END 2023-12-09 15:15 | disposition home or self-care (01) ==
PROVIDERS: Emergency Provider Student in an Organized Health Care Education/Training Program
DX: O12.05 Gestational edema, complicating the puerperium (principal); R22.42 Localized swelling, mass and lump, left lower limb; B96.89 Other specified bacterial agents as the cause of diseases classified elsewhere
CPT/HCPCS: 80053; 81001; 83880; 85025; 85610; 87086; 93971; 99284

== ENCOUNTER 2023-12-10 20:30 | Observation (INO) | payer MEDICAID, SELFPAY ==
[2023-12-10 20:46] VITALS: BP 143/72; PULSE 78; RESP 17; TEMP 36.7; O2SAT 100; BMI 40.2
--- NOTE | 2023-12-10 21:25 | ED_ITS ---
Discharge Plan Disposition Patient Disposition: Admitted Chief Complaint: Urogenital-Female Prescriptions Prescriptions: No Action ibuprofen 800 mg tablet 800 mg PO Q8H PRN (Reason: pain) Qty: 20 0RF Referrals Follow up/Referrals: Rommel May DO [Primary Care Provider] - See instructions Clinical Impressions Clinical Impression: Acute endometritis Instructions Patient Instructions: DI for Urinary Tract Infection (UTI), DI for Urinary Tract Infection in Children Discharge ED Provider: Stalin Brown General Adult HPI General Chief complaint: Urogenital-Female Stated complaint: poss bacterial inf, Time Seen by Provider: 12/10/23 20:38 Mode of Arrival: Family Vehicle Source of Information: Patient Limitations: No Limitations Description of Symptoms (Recalled from ER Triage Doc. 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 Reports foul smelling urine and bloody drainage from her vaginal hole . Patient states she was told to come back if any foul smell occured. Patient reports dysuria, urinary frequency and decreased UOP. History of Present Illness HPI narrative: G1, P1 23-year-old female as of 12/02/2023 with traumatic , hemorrhage presenting with vaginal discharge and bleeding that is malodorous. Patient states that she was told that if she has any complications or changes in her vaginal output that she should come to the emergency department. Patient states that yesterday it started with clots and bleeding, today she is already noticing it was malodorous. No fevers or chills, diarrhea or constipation. She does state that she is having burning externally when she urinates, but no other symptoms at this time. Saturating about 4 pads per day Related Data Previous Rx's Medication Instructions Recorded ibuprofen 800 mg tablet 800 mg PO Q8H PRN pain #20 tabs 12/04/23 Allergies Allergy/AdvReac Type Severity Reaction Status Date / Time No Known Allergies Allergy Verified 11/28/23 08:45 [facility] Disclaimer: The information contained in this section may have been updated after the patient was seen, as this information can be updated by other users. Medical History (Updated 12/10/23 @ 23:09 by Stalin Brown MD) Acute post-hemorrhagic anemia hemorrhage Encounter for induction of labor Postmaturity , 40-42 weeks gestation Constipation during , antepartum Rubella non-immune status, antepartum Maternal obesity affecting , antepartum Vaginal bleeding affecting early Breast pain Depression Anxiety Migraine Asthma Polycystic ovary syndrome Surgical History (Updated 12/08/23 @ 00:00 by Vidya Lua) Status post vaginal delivery S/P wisdom tooth extraction Family History Grandmother Cancer Social History (Updated 12/01/23 @ 19:11 by Helen Olivia RN) Smoking Status: Unknown if ever smoked second hand exposure: No alcohol intake: never substance use type: denies use current occupational status: unemployed Travel in the last 8 weeks: None household members: other housing: house ROS Obtained: Yes All systems reviewed & no additional complaints except as documented Physical Exam General General appearance: alert and in no apparent distress Head Head exam: atraumatic and normocephalic Eye Eye exam: Present normal appearance, PERRL and EOMI ENT ENT exam: Present mucous membranes moist Neck Neck exam: Present normal inspection, full ROM and trachea midline Respiratory Respiratory exam: Present normal lung sounds bilaterally; Absent respiratory distress, wheezes, stridor, accessory muscle use or prolonged expiratory phase Cardiovascular Cardiovascular exam: Present regular rate and normal rhythm Abdominal Exam Abdominal exam: Present soft; Absent distention, tenderness, guarding, rebound or rigidity Extremities Exam Extremities exam: Absent edema Neurological Exam Neurological exam: Present alert, oriented X3, CN II-XII intact and normal gait; Absent motor sensory deficit Skin Skin exam: Present warm and dry; Absent diaphoresis or erythema Medical Decision Making Medical Records Medical records reviewed: Yes I reviewed the patient's medical records. Tomas Inquiry Pt receiving controlled substance: No Tomas was queried for this patient: No Vital Signs: 12/10/23 20:46 Temperature 98.0 F Temperature Source Oral Pulse Rate [Right Brachial] 78 Respiratory Rate 17 Blood Pressure [Right Arm] 143/72 H Blood Pressure Mean [Right Arm] 95 Blood Pressure Source [Right Arm] Automatic Cuff 02 Sat by Pulse Oximetry 100 Oxygen Delivery Method Room Air Lab Data Lab Results 12/10/23 21:45: Urine Color Yellow, Urine Appearance Sl cloudy, Urine pH 6.0, Ur Specific [place] >= 1.030, Urine Protein Trace, Urine Glucose (UA) Negative, Urine Ketones Negative, Urine Blood 3+, Urine Nitrate Negative, Urine Bilirubin Negative, Urine Urobilinogen 0.2, Ur Leukocyte Esterase Negative, Urine RBC 20- 50, Urine WBC 10-20, Ur Squamous Epith Cells 10-20, Urine Bacteria 2+, Urine Yeast Occasional Orders (Tests/Meds): ORDERS Category Date Time Status POCUS Point of Care (ER Only) Stat Exams 12/10/23 22:24 Ordered CBC w/Auto Diff [Complete Blood Count Auto Diff] Stat Lab 12/10/23 22:30 Received CMP [Comprehensive Metabolic Panel] Stat Lab 12/10/23 22:30 Received Lactic Acid Stat Lab 12/10/23 22:30 Received UA [Urinalysis and Microscopic] Stat Lab 12/10/23 21:45 Completed Blood Culture Stat Micro 12/10/23 22:30 Ordered Urine Culture Stat Micro 12/10/23 21:45 Received Medical Decision Narrative: G1, P1 23-year-old female as of 12/02/2023 with traumatic , hemorrhage presenting with vaginal discharge and bleeding that is malodorous. Patient states that she was told that if she has any complications or changes in her vaginal output that she should come to the emergency department. Patient states that yesterday it started with clots and bleeding, today she is already noticing it was malodorous. No fevers or chills, diarrhea or constipation. She does state that she is having burning externally when she urinates, but no other symptoms at this time. Saturating about 4 pads per day. History obtained with patient. On arrival, patient hemodynamically stable, afebrile, nontachycardic, normotensive. Abdomen is soft, nontender, nondistended. No flank tenderness. Differential includes endometritis, retained products of conception, vaginal laceration, uterine atony, blood dyscrasia, among others. Independently interpreted workup. Hematologic workup pending at time of admission, but urinalysis negative. Bedside uterine ultrasound with edematous uterus with concern for clots versus retained products in uterine cavity. MEDICAL DIRECTOR OCCUPATIONAL HEALTH on-call was contacted. Recommended ampicillin, gentamicin, Methergine, and admission. These orders were placed. Because patient high risk for clinical decompensation, deemed appropriate for inpatient admission. Results were relayed to patient who voiced understanding and patient was agreeable to inpatient admission and management. Patient was admitted to the hospital for further definitive management. Procedures Limited Ultrasound Indication:: Limited OB ultrasound Indication: Malodorous pelvic discharge after delivery Identified structures: -Uterus -Left adnexa -Right adnexa -Pouch of Jose F Findings: Uterus: Retained products of conception versus clot material Right adnexa: -Normal Left adnexa: -Normal Cul de sac: Small amount of free fluid in the cul-de-sac Impression: Retained products of conception versus clots versus endometritis Images were saved to permanent archive The study was technically adequate CPT Transabdominal: 79781-55 This study was performed by me, and I personally interpreted all images/videos. Based on my clinical judgement, these images were adequate and did not necessitate further imaging. Critical Care Critical Care Time Critical Care Time: No
[2023-12-10 21:58] LABS: Microscopic, Urine URINE MICROSCOPIC (MICROSCOPIC)
[2023-12-10 22:00] LABS: Appearance,Urine SL CLOUDY (Clear); Bilirubin,Urine Negative (Negative); Blood, Urine 3+ (Negative); Color,Urine YELLOW (Yellow); Glucose,Urine (UA) Negative (Negative); Ketones,Urine Negative (Negative); Leukocyte Esterase,Urine Negative (Negative); Nitrate,Urine Negative (Negative); Protein,Urine TRACE (Negative); Specific Gravity, Urine >= 1.030 (1.005-1.030); Urobilinogen,Urine 0.2 EU/dl (0.2)
[2023-12-10 22:12] LABS: Bacteria,Urine 2+ /lpf; RBC,Urine 20-50 #/hpf (0-3); Yeast,Urine Occasional /lpf
--- NOTE | 2023-12-10 22:26 | PC.NURSE ---
Lab collecting blood at bedside. Requested RN, states that she is unable to collect enough blood for adult cultures x 2 and can collect 1 pediatric culture. Notified provider.
[2023-12-10 23:02] LABS: Basophils # 0.1 K/mm3 (0-0.2); Basophils % 0.6 % (0.1-2.0); Chloride 113 mmol/L (98-107); Eosinophils # 0.3 K/mm3 (0.0-0.4); Eosinophils % 2.7 % (0.1-12.0); Hemoglobin 10.6 g/dL (12.2-16.2); Lymphocytes % 30.2 % (10-50); Mean Corpuscular HGB Conc 31.2 g/dL (31.8-35.4); Mean Corpuscular Hemoglobin 27.4 pg (27.0-31.2); Mean Corpuscular Volume 87.9 fl (81-99); Mean Platelet Volume 8.7 fl (7.4-10.4); Monocytes # 0.5 K/mm3 (0.1-1.0); Monocytes % 4.6 % (1.7-9.3); Neutrophils # 6.1 K/mm3 (1.8-7.8); Neutrophils % 61.9 % (37.0-80.0); Platelet Count 346 K/mm3 (142-424); Potassium 3.4 mmoL/L (3.5-5.1); Red Blood Count 3.87 M/mm3 (4.20-5.40); Red Cell Distribution Width 16.8 % (11.5-17.5); Sodium 142 mmol/L (136-145); White Blood Count 9.8 K/mm3 (4.8-10.8)
--- NOTE | 2023-12-10 23:03 | PC.NURSE ---
Dr. Gant on phone with OB career based intervention coordinator
[2023-12-10 23:05] LABS: Alanine Aminotransferase 37 U/L (12-78); Albumin Level 3.5 g/dl (3.5-5.0); Albumin/Globulin Ratio 1.3 (1.1-1.8); Alkaline Phosphatase 161 U/L (38-126); Anion Gap 10.4 mEq/L (5-15); Aspartate Amino Transferase 34 U/L (14-36); Bilirubin,Total 0.2 mg/dl (0.2-1.3); Blood Urea Nitrogen 9 mg/dl (7-17); Carbon Dioxide 22 mmol/L (22.0-30.0); Creatinine Clearance Estimated 200 mL/min (50-200); Estimated Glomerular Filt Rate 106 ml/min (>60); GFR (African American) 128 ML/MIN (>60); Globulin 2.8 g/dL (1.3-3.2); Total Protein,Serum 6.3 g/dl (6.3-8.2)
[2023-12-10 23:06] LABS: Calcium 8.7 mg/dl (8.4-10.2); Glucose 96 mg/dl (74-100)
[2023-12-10 23:08] LABS: Lactic Acid 2.5 mmol/L (0.7-2.1)
[2023-12-10] MEDS: [UNRECOGNIZED DRUG - REMARK] 1 EACH NOTAPPLIC (23:18)
--- NOTE | 2023-12-10 23:26 | PC.NURSE ---
house notified of bed
[2023-12-10] MEDS: GENTAMICIN SULFATE 350 MG in 0.9 % SODIUM CHLORIDE 100 ML 100 MG IV (23:29)
[2023-12-10] MEDS: AMPICILLIN SODIUM 2 GM in 0.9 % SODIUM CHLORIDE 100 ML IV (23:44)
--- NOTE | 2023-12-10 23:49 | PC.NURSE ---
Per [facility] front office java developer pharmacy gentamicin and ampicillin is considered safe for
--- NOTE | 2023-12-10 23:59 | PC.NURSE ---
Difficulties obtaining IV. garment manufacturing supervisor as bedside at this time attempting
--- NOTE | 2023-12-11 00:05 | PC.NURSE ---
attempted to give report at this time. ob unable to take patient report.
--- NOTE | 2023-12-11 00:09 | PC.NURSE ---
REPORT RECIEVED FROM [facility]
[2023-12-11 00:10] VITALS: BP 117/82; PULSE 82; RESP 16; TEMP 36.8; O2SAT 98
--- NOTE | 2023-12-11 00:25 | PC.NURSE ---
PT TO ROOM 279 PER WHEELCHAIR 2 ER STAFF.SIGNIFICANT OTHER AND INFANT AT HER SIDE.PT IS 9 DAYS
[2023-12-11 00:45] VITALS: BP 124/79; PULSE 80; RESP 17; TEMP 36.8; O2SAT 99
[2023-12-11] MEDS: METHYLERGONOVINE MALEATE 0.2 MG TABLET 0.200000000000000011 MG PO ×4 (01:18→12:56)
[2023-12-11 03:01] LABS: Reflex Lactic Add Lactic Reflex
[2023-12-11 04:00] VITALS: BP 132/83; PULSE 75; RESP 18; O2SAT 98
--- NOTE | 2023-12-11 04:15 | PC.NURSE ---
PT HAD RANG OUT AND SAID SHE FELT A LITTLE LIGHT HEADED.UPON ENTERING ROOM SHE REPORTS SHE IS A LITTLE FUZZY AND SHE THINKS SHE IS BLEEDING MORE,CHECKED HER BLOOD PRESSURE AND IT WAS 132/83,P-75,R-18,SAT.LEVEL ON RA WAS 98%.CHECKED HER BELLY AND MASSAGED IT.ASKED HER IF SHE FELT ANY BLOOD COME OUT AND SHE SAID SOME.I ASKED IF SHE HAD PASSED ANY CLOTS WHEN SHE WENT TO BATHROOM EARLIER AND SHE SAID YES .IT WAS ABOUT THE SIZE OF EGG.SMALL AMT.OF BLOOD WAS NOTED ON HER PAD EARLIER.I ASKED HER IF SHE HAD EATEN ANYTHING AND SHE SAID SHE JUST DID.BUT ASKED IF HAD A SANDWICH AND SOME JELLO.THIS WAS PROVIDED.PT HAS BEEN PUMPING HER BREAST BECAUSE SHE SAID SHE COULD NOT GET TO LATCH.SHE WAS EXCITED THAT JUST DID LATCH ON.A CRIB WAS GIVEN FOR INFANT TO SLEEP IN
--- NOTE | 2023-12-11 04:50 | PC.NURSE ---
PT CHANGED HER KOTEX PAD AND IT HAD A SMALL SPOT OF DARK RED BLOOD ON IT.PT DENIED ANY CLOTS THIS TIME.REPORTS NOT MUCH BLEEDING ON PAD BUT SHE HAS QUIT A BIT WITH WIPING
[2023-12-11] MEDS: AMPICILLIN SODIUM 2 GM in 0.9 % SODIUM CHLORIDE 100 ML IV (06:43)
--- NOTE | 2023-12-11 07:16 | PC.NURSE ---
REPORT GIVEN TO ZENOBIARN
[2023-12-11 08:06] VITALS: BP 111/63; PULSE 85; RESP 18; TEMP 36.8; O2SAT 100
[2023-12-11 09:18] VITALS: O2SAT 100
--- NOTE | 2023-12-11 09:26 | PC.NURSE ---
A.M. assessment complete. Pt resting comfortably in bed. Baby and sig other at bs. Small amt of bloody discharge noted on peripad. Pt denies abdominal tenderness when palpated. Lungs clear bilat. (+)BS X4 quads -normal active. Saline lock to rt AC. No edema noted. Denies any pain.
--- NOTE | 2023-12-11 09:30 | EXP.PHA.CONS ---
Pharmacy Consult Date: 12/11/23 Time: 09:30 Referring provider: DR BULL Reason for Consult:: GENTAMICIN DOSING Allergies Allergy/AdvReac Type Severity Reaction Status Date / Time No Known Allergies Allergy Verified 11/28/23 08:45 Home Medications Medication Instructions Recorded Confirmed Type ibuprofen 800 mg tablet 800 mg PO Q8H PRN pain #20 tabs 12/04/23 12/11/23 Rx vits no.126-ferrous fum 1 tab PO DAILY 12/11/23 12/11/23 History 28 mg iron-folic acid 800 mcg tablet (Classic ) New Prescriptions to Start Prescriptions: Height: 1.57 m Weight: 99.79 kg Laboratory Results:: Laboratory Results - last 24 hr 12/10/23 21:45: Urine Color Yellow, Urine Appearance Sl cloudy, Urine pH 6.0, Ur Specific [place] >= 1.030, Urine Protein Trace, Urine Glucose (UA) Negative, Urine Ketones Negative, Urine Blood 3+, Urine Nitrate Negative, Urine Bilirubin Negative, Urine Urobilinogen 0.2, Ur Leukocyte Esterase Negative, Urine RBC 20-50, Urine WBC 10-20, Ur Squamous Epith Cells 10-20, Urine Bacteria 2+, Urine Yeast Occasional 12/10/23 22:30: WBC 9.8, RBC 3.87 L, Hgb 10.6 L, Hct 34.0 L, MCV 87.9, MCH 27.4, MCHC 31.2 L, RDW 16.8, Plt Count 346, MPV 8.7, Neut % (Auto) 61.9, Lymph % (Auto) 30.2, [place] % (Auto) 4.6, Eos % (Auto) 2.7, Baso % (Auto) 0.6, Neut # (Auto) 6.1, Lymph # (Auto) 3.0, [place] # (Auto) 0.5, Eos # (Auto) 0.3, Baso # (Auto) 0.1, Sodium 142, Potassium 3.4 L, Chloride 113 H, Carbon Dioxide 22, Anion Gap 10.4, BUN 9, Creatinine 0.70, Estimated Creat Clear 200, Estimated GFR 106, Est GFR ( Amer) 128, Glucose 96, Lactate 2.5 H, Calcium 8.7, Total Bilirubin 0.2, AST 34, ALT 37, Alkaline Phosphatase 161 H, Total Protein 6.3, Albumin 3.5, Globulin 2.8, Albumin/Globulin Ratio 1.3 12/11/23 03:25: Lactate 1.0 Medical History: Medical History (Updated 12/10/23 @ 23:09 by Stalin Brown MD) Acute post-hemorrhagic anemia hemorrhage Encounter for induction of labor Postmaturity , 40-42 weeks gestation Constipation during , antepartum Rubella non-immune status, antepartum Maternal obesity affecting , antepartum Vaginal bleeding affecting early Breast pain Depression Anxiety Migraine Asthma Polycystic ovary syndrome Assessment and Plan Assessment and plan all Dx Assessment and Plan for all problems:: Pharmacokinetic dosing service Objective: Age: 23 yo Serum creatinine: 0.7 mg/dL Height: 62.0 Inches Weight (kg): 99.79 Diagnosis: ENDOMETRIOSIS Assessment: IBW (kg): 50.10 Dosing wt(kg): 70.0 Estimated Creatinine clearance (ml/min): 130 Clearance limited to 130 ml/min to reduce risk of overdosing. CRCL method: Cockcroft and Gault using adjusted body weight Drug selected: Gentamicin Vd (liters): 17.5 (factor used: 0.25 L/kg) Orbert (hr-1): 0.395 Half life (hrs): 1.75 Recommended dose: 350 mg Interval: 24 hrs Infusion time (hrs): 1 Predicted peak (mcg/mL): 16.5 Predicted trough (mcg/mL): 0.00 Recommendations: Give Gentamicin 350 mg q 24 hrs with an expected Cpeak of 16.5 mcg/ml and an expected Ctrough of 0.00 mcg/ml, FIRST DOSE WAS GIVEN 12/10/23 AT 23:30, RANDOM GENTAMICIN LEVEL ORDERED FOR 12/11/23 AT 09:30. Thank you for the consult
--- NOTE | 2023-12-11 09:33 | HMH.PHAINT1 ---
Pharmacy Intervention Comments: MEDICATION RECONCILIATION COMPLETE USING EXTERNAL PHARMACY FILL HISTORY.
[2023-12-11 11:09] LABS: Gentamicin,Random 1.7 ug/ml
--- NOTE | 2023-12-11 12:22 | PC.NURSE ---
here to see pt. BS ultrasound performed per . MD then performed a speculum exam and was able to extract a golf ball size blood clot without difficulty. Pt tolerated procedure well. Verbal order received to give Methergine 0.2mg PO now and give pt a Methergine 0.2mg PO to take home with her and take 6hrs from now. Pt has been instructed per to follow up with in office at next scheduled appointment. Pt verbalized understanding.
--- NOTE | 2023-12-11 12:45 | P.HP_ITS ---
History of Present Illness *Admission Date: 12/10/23 *Reason for visit:: Foul-smelling vaginal discharge. Possible endometritis *History of present illness: She is a 23-year-old 1 para 1 who is 9 days from a vaginal delivery. She had significant hemorrhage requiring transfusion and IV iron. Since then she has been doing well but began having a foul-smelling discharge with some clots yesterday. She came into the ER and given the fact that she had this foul-smelling discharge and was at risk for endometritis we elected to admit her for observation. [facility] Disclaimer: The information contained in this section may have been updated after the patient was seen, as this information can be updated by other users. Medical History Acute post-hemorrhagic anemia hemorrhage Encounter for induction of labor Postmaturity , 40-42 weeks gestation Constipation during , antepartum Rubella non-immune status, antepartum Maternal obesity affecting , antepartum Vaginal bleeding affecting early Breast pain Depression Anxiety Migraine Asthma Polycystic ovary syndrome Surgical History Status post vaginal delivery S/P wisdom tooth extraction Family History Cancer Grandmother Social History Smoking Status: Unknown if ever smoked second hand exposure: No alcohol intake: never substance use type: denies use current occupational status: unemployed Travel in the last 8 weeks: None household members: other housing: house marital status: single diet: lactose free Review of Systems Review of Systems Review of systems:: pertinent systems reviewed and negative unless documented below Meds Home Medications and Allergies Home Medications Medication Instructions Recorded Confirmed Type ibuprofen 800 mg tablet 800 mg PO Q8H PRN pain #20 tabs 12/04/23 12/11/23 Rx vits no.126-ferrous fum 1 tab PO DAILY 12/11/23 12/11/23 History 28 mg iron-folic acid 800 mcg tablet (Classic ) New Prescriptions to Start Prescriptions: Allergies Allergy/AdvReac Type Severity Reaction Status Date / Time No Known Allergies Allergy Verified 11/28/23 08:45 Exam Data for Last 24 hours Vital signs and Labs for Last 24 Hours: Temp Pulse Resp BP Pulse Ox O2 Del Method 98.3 F 85 18 111/63 100 Room Air 12/11/23 08:06 12/11/23 08:06 12/11/23 08:06 12/11/23 08:06 12/11/23 09:18 12/11/23 09:18 Laboratory Results - last 24 hr 12/10/23 21:45: Urine Color Yellow, Urine Appearance Sl cloudy, Urine pH 6.0, Ur Specific [place] >= 1.030, Urine Protein Trace, Urine Glucose (UA) Negative, Urine Ketones Negative, Urine Blood 3+, Urine Nitrate Negative, Urine Bilirubin Negative, Urine Urobilinogen 0.2, Ur Leukocyte Esterase Negative, Urine RBC 20- 50, Urine WBC 10-20, Ur Squamous Epith Cells 10-20, Urine Bacteria 2+, Urine Yeast Occasional 12/10/23 22:30: WBC 9.8, RBC 3.87 L, Hgb 10.6 L, Hct 34.0 L, MCV 87.9, MCH 27.4, MCHC 31.2 L, RDW 16.8, Plt Count 346, MPV 8.7, Neut % (Auto) 61.9, Lymph % (Auto) 30.2, [place] % (Auto) 4.6, Eos % (Auto) 2.7, Baso % (Auto) 0.6, Neut # (Auto) 6.1, Lymph # (Auto) 3.0, [place] # (Auto) 0.5, Eos # (Auto) 0.3, Baso # (Aut o) 0.1, Sodium 142, Potassium 3.4 L, Chloride 113 H, Carbon Dioxide 22, Anion Gap 10.4, BUN 9, Creatinine 0.70, Estimated Creat Clear 200, Estimated GFR 106, Est GFR ( Amer) 128, Glucose 96, Lactate 2.5 H, Calcium 8.7, Total Bilirubin 0.2, AST 34, ALT 37, Alkaline Phosphatase 161 H, Total Protein 6.3, Albumin 3.5, Globulin 2.8, Albumin/Globulin Ratio 1.3 12/11/23 03:25: Lactate 1.0 12/11/23 10:20: Random Gentamicin 1.7 I & O for Last 24 hours: Intake & Output 03/0812/10/23 12/11/23 12/12/23 10:59 10:59 11:59 11:59 Output Total Balance Weight Constitutional Constitutional: no acute distress *Routine HEENT Exam Head: Present normocephalic Eye: Present EOMI and PERRL ENT: Present mucous membranes moist *Routine Neck Exam Neck: Present supple; Absent lymphadenopathy *Routine Respiratory Exam Respiratory: Present CTA bilaterally *Routine Cardiovascular Exam Cardiovascular: Present RRR *Routine Abdominal Exam Abdominal: Present soft and normoactive bowel sounds; Absent tenderness *Routine Rectal Exam Rectal:: deferred *Routine Genitalia Exam Genitalia:: deferred *Routine Extremities Exam Extremities: Absent cyanosis, clubbing or edema *Routine Skin Exam Skin: Present warm; Absent rash *Routine Neurological Exam Neurological: Present alert and oriented X3 Assessment and Plan *Assessment and plan (1) Acute endometritis: Status: Acute Category: Medical Code(s): N71.0 - Acute inflammatory disease of uterus (2) Acute post-hemorrhagic anemia: Status: Acute Category: Medical Code(s): D62 - Acute posthemorrhagic anemia (3) Status post vaginal delivery: Status: Acute Category: Surgical (4) Obesity (BMI 35.0-39.9 without comorbidity): Status: Acute Category: Medical Code(s): E66.9 - Obesity, unspecified Plan She is admitted for IV antibiotics. We will also plan a bedside ultrasound to look for retained products of conception.
--- NOTE | 2023-12-11 12:48 | P.DS_ITS ---
General Admission date:: 12/11/23 Discharge date: 12/11/23 HPI HPI HPI: She is a 23-year-old 1 para 1 who is 9 days from a vaginal delivery. She had significant hemorrhage requiring transfusion and IV iron. Since then she has been doing well but began having a foul-smelling discharge with some clots yesterday. She came into the ER and given the fact that she had this foul-smelling discharge and was at risk for endometritis we elected to admit her for observation. Hospital Course Hospital Course Hospital Course: She was started on IV antibiotics overnight and received ampicillin as well as gentamicin. She was started on Methergine to help contract the uterus as well. She has remained afebrile throughout her hospitalization. She was passing some small clots. White blood cell count was normal. Hemoglobin showed her to be slightly anemic at 10.6. I did a bedside ultrasound and it looked like there was clots or fluid in the vagina on transabdominal ultrasound. I did a speculum examination and there was about a golf ball sized clot coming through the cervix. I was able to remove this clot from the cervix and the cervix contracted down well. There was no active bleeding from the cervix. There was some old blood. The endometrium appeared normal. There was no evidence of retained products. Given the fact that she has been afebrile and her white count is normal. We will go ahead and send her home to follow-up with Dr. Yuan as planned. She will be given the usual instructions with respect to limiting her activity, driving and sexual activity. She was given 1 dose of Methergine to take later today. She will continue with her vitamins and iron. Her condition on discharge is stable and improved. Exam Data for Last 24 hours Vital signs and Labs for Last 24 Hours: Temp Pulse Resp BP Pulse Ox O2 Del Method 98.3 F 85 18 111/63 100 Room Air 12/11/23 08:06 12/11/23 08:06 12/11/23 08:06 12/11/23 08:06 12/11/23 09:18 12/11/23 09:18 Laboratory Results - last 24 hr 12/10/23 21:45: Urine Color Yellow, Urine Appearance Sl cloudy, Urine pH 6.0, Ur Specific [place] >= 1.030, Urine Protein Trace, Urine Glucose (UA) Negative, Urine Ketones Negative, Urine Blood 3+, Urine Nitrate Negative, Urine Bilirubin Negative, Urine Urobilinogen 0.2, Ur Leukocyte Esterase Negative, Urine RBC 20- 50, Urine WBC 10-20, Ur Squamous Epith Cells 10-20, Urine Bacteria 2+, Urine Yeast Occasional 12/10/23 22:30: WBC 9.8, RBC 3.87 L, Hgb 10.6 L, Hct 34.0 L, MCV 87.9, MCH 27.4, MCHC 31.2 L, RDW 16.8, Plt Count 346, MPV 8.7, Neut % (Auto) 61.9, Lymph % (Auto) 30.2, [place] % (Auto) 4.6, Eos % (Auto) 2.7, Baso % (Auto) 0.6, Neut # (Auto) 6.1, Lymph # (Auto) 3.0, [place] # (Auto) 0.5, Eos # (Auto) 0.3, Baso # (Auto) 0.1, Sodium 142, Potassium 3.4 L, Chloride 113 H, Carbon Dioxide 22, Anion Gap 10.4, BUN 9, Creatinine 0.70, Estimated Creat Clear 200, Estimated GFR 106, Est GFR ( Amer) 128, Glucose 96, Lactate 2.5 H, Calcium 8.7, Total Bilirubin 0.2, AST 34, ALT 37, Alkaline Phosphatase 161 H, Total Protein 6.3, Albumin 3.5, Globulin 2.8, Albumin/Globulin Ratio 1.3 12/11/23 03:25: Lactate 1.0 12/11/23 10:20: Random Gentamicin 1.7 I & O for Last 24 hours: Intake & Output 12/09/23 12/10/23 12/11/23 12/12/23 10:59 10:59 11:59 11:59 Output Total Balance Weight Constitutional Constitutional: no acute distress *Routine HEENT Exam Head: Present normocephalic *Routine Respiratory Exam Respiratory: Present normal respiratory effort; Absent accessory muscle use *Routine Cardiovascular Exam Cardiovascular: Present RRR *Routine Abdominal Exam Abdominal: Present soft; Absent tenderness, distended, rebound or guarding Results Data Completed and Pending Labs on day of discharge: Labs from last 24 hours 03/10/24 03/10/24 03/09/24 10:20 03:25 22:30 WBC 9.8 RBC 3.87 L Hgb 10.6 L Hct 34.0 L MCV 87.9 MCH 27.4 MCHC 31.2 L RDW 16.8 Plt Count 346 MPV 8.7 Neut % (Auto) 61.9 Lymph % (Auto) 30.2 [place] % (Auto) 4.6 Eos % (Auto) 2.7 Baso % (Auto) 0.6 Neut # (Auto) 6.1 Lymph # (Auto) 3.0 [place] # (Auto) 0.5 Eos # (Auto) 0.3 Baso # (Auto) 0.1 Sodium 142 Potassium 3.4 L Chloride 113 H Carbon Dioxide 22 Anion Gap 10.4 BUN 9 Creatinine 0.70 Estimated Creat Clear 200 Estimated GFR 106 Est GFR ( Amer) 128 Glucose 96 Lactate 1.0 2.5 H Calcium 8.7 Total Bilirubin 0.2 AST 34 ALT 37 Alkaline Phosphatase 161 H Total Protein 6.3 Albumin 3.5 Globulin 2.8 Albumin/Globulin Ratio 1.3 Urine Color Urine Appearance Urine pH Ur Specific [place] Urine Protein Urine Glucose (UA) Urine Ketones Urine Blood Urine Nitrate Urine Bilirubin Urine Urobilinogen Ur Leukocyte Esterase Urine RBC Urine WBC Ur Squamous Epith Cells Urine Bacteria Urine Yeast Random Gentamicin 1.7 12/10/23 21:45 WBC RBC Hgb Hct MCV MCH MCHC RDW Plt Count MPV Neut % (Auto) Lymph % (Auto) [place] % (Auto) Eos % (Auto) Baso % (Auto) Neut # (Auto) Lymph # (Auto) [place] # (Auto) Eos # (Auto) Baso # (Auto) Sodium Potassium Chloride Carbon Dioxide Anion Gap BUN Creatinine Estimated Creat Clear Estimated GFR Est GFR ( Amer) Glucose Lactate Calcium Total Bilirubin AST ALT Alkaline Phosphatase Total Protein Albumin Globulin Albumin/Globulin Ratio Urine Color Yellow Urine Appearance Sl cloudy Urine pH 6.0 Ur Specific [place] >= 1.030 Urine Protein Trace Urine Glucose (UA) Negative Urine Ketones Negative Urine Blood 3+ Urine Nitrate Negative Urine Bilirubin Negative Urine Urobilinogen 0.2 Ur Leukocyte Esterase Negative Urine RBC 20-50 Urine WBC 10-20 Ur Squamous Epith Cells 10-20 Urine Bacteria 2+ Urine Yeast Occasional Random Gentamicin DS: Diagnosis Discharge Diagnosis (1) Acute endometritis: Status: Acute Code(s): N71.0 - Acute inflammatory disease of uterus (2) Acute post-hemorrhagic anemia: Status: Acute Code(s): D62 - Acute posthemorrhagic anemia (3) Status post vaginal delivery: Status: Acute (4) Obesity (BMI 35.0-39.9 without comorbidity): Status: Acute Code(s): E66.9 - Obesity, unspecified Meds Home Medications and Allergies Home Medications Medication Instructions Recorded Confirmed Type ibuprofen 800 mg tablet 800 mg PO Q8H PRN pain #20 tabs 12/04/23 12/11/23 Rx vits no.126-ferrous fum 1 tab PO DAILY 12/11/23 12/11/23 History 28 mg iron-folic acid 800 mcg tablet (Classic ) New Prescriptions to Start Prescriptions: Allergies Allergy/AdvReac Type Severity Reaction Status Date / Time No Known Allergies Allergy Verified 11/28/23 08:45 Discharge Plan Disposition Patient Disposition: Home, Self-Care Condition: Good Follow up Plan Prescriptions/Medication Reconciliation: Continued Classic 28 mg iron- 800 mcg tablet 1 tab PO DAILY Patient Comments: TAKE ONE TABLET BY MOUTH ONCE DAILY FOR ibuprofen 800 mg tablet 800 mg PO Q8H PRN (Reason: pain) Qty: 20 0RF Problem Reconciliation Problems Reviewed?: Yes Patient Discharge Instructions ACTIVITY: No heavy lifting DIET: continue same diet Providers Primary Care Provider: Rommel May Admit Provider: Vivek Loja Attending Provider: Vivek Loja
[2023-12-11] MEDS: LACTOBACILLUS PROBIOTIC COMB CAPSULE 1 CAP PO (12:57)
--- NOTE | 2023-12-11 13:00 | PC.NURSE ---
IV saline lock discontinued from right AC with catheter intact. Pt tolerated well. 2x2 gauze and pressure applied to site.
== END 2023-12-11 13:50 | disposition home or self-care (01) ==
LOC: ER 23:09 → OB 12-11 00:17
PROVIDERS: Admitting Provider Nurse Practitioner Obstetrics & Gynecology; Emergency Provider Emergency Medicine; PCP Internal Medicine; Visit Provider Nurse Practitioner Obstetrics & Gynecology
DX: N71.0 Acute inflammatory disease of uterus (principal); D62 Acute posthemorrhagic anemia; E66.9 Obesity, unspecified; Z68.41 Body mass index [BMI] 40.0-44.9, adult
CPT/HCPCS: 36415; 80053; 80170; 81001; 83605; 85025; 87040; 87086; G0378; J0290

== ENCOUNTER 2024-03-06 08:12 | Emergency (ER) | payer MEDICAID, SELFPAY ==
[2024-03-06 08:20] VITALS: BP 126/84; PULSE 87; RESP 18; TEMP 36.6; O2SAT 97; BMI 36.6
[2024-03-06 08:35] LABS: UTC Strep Screen (Rapid) Negative (Negative)
--- NOTE | 2024-03-06 08:41 | ED_ITS ---
Discharge Plan Disposition Patient Disposition: Home, Self-Care Condition: Good Prescriptions Prescriptions: New loratadine 10 mg tablet 10 mg PO DAILY Qty: 30 0RF Clinical Impressions Clinical Impression: Upper respiratory tract infection Discharge ED Provider: Swetha Patton [facility] General Stated complaint: sore throat, diarrhea Mode of Arrival: Ambulatory Source of Information: Patient Limitations: No Limitations Time Seen by Provider: 03/06/24 08:30 Description of Symptoms (Recalled from Triage Doc. by RN): Pt's symptoms are sore throat, fever, and diarrhea. HEENT Symptoms (Recalled from RN notes): Yes Resp Symptoms (Recalled from RN notes): No Skin Symptoms (Recalled from RN notes): No MS Symptoms (Recalled from RN notes): No Functional Status (Recalled from RN notes): n/a History of Present Illness Provider Complaint: Pt reports that she has been around her sister and child who have just tested positive for strep. She reports that she woke up this morning with a sore throat, cough, runny nose, and an episode of diarrhea this am. She denies taking anything for her symptoms. Related Data Previous Rx's Medication Instructions Recorded loratadine 10 mg tablet 10 mg PO DAILY #30 tabs 03/06/24 Allergies Allergy/AdvReac Type Severity Reaction Status Date / Time No Known Allergies Allergy Verified 03/06/24 08:30 Worker's Comp Is this a Worker's Comp case?: No [facility] Disclaimer: The information contained in this section may have been updated after the patient was seen, as this information can be updated by other users. Medical History (Updated 03/06/24 @ 08:46 by Swetha Patton APRN) Acute post-hemorrhagic anemia hemorrhage Breast pain Depression Anxiety Migraine Asthma Polycystic ovary syndrome Surgical History Status post vaginal delivery S/P wisdom tooth extraction Family History Grandmother Cancer Social History Smoking Status: Never smoker second hand exposure: No alcohol intake: never substance use type: denies use current occupational status: unemployed Travel in the last 8 weeks: None household members: other housing: house marital status: single diet: lactose free ROS Obtained: Yes All systems reviewed & no additional complaints except as documented Constitutional Constitutional: Reports system reviewed and no additional complaints, except as documented Eyes Eyes: Reports system reviewed and no additional complaints, except as documented ENT Ears, Nose, Mouth, and Throat: Reports system reviewed and no additional complaints, except as documented, Reports nasal discharge, Reports post nasal drip and Reports sore throat Cardiovascular Cardiovascular: Reports system reviewed and no additional complaints, except as documented Respiratory Respiratory: Reports system reviewed and no additional complaints, except as documented and Reports non-productive cough Gastrointestinal Gastrointestingal: Reports system reviewed and no additional complaints, except as documented and diarrhea Genitourinary Female Genitourinary: Reports system reviewed and no additional complaints, except as documented Musculoskeletal Musculoskeletal: Reports system reviewed and no additional complaints, except as documented Integumentary/Breasts Skin/Breast: Reports system reviewed and no additional complaints, except as d ocumented Neurologic Neurologic: Reports system reviewed and no additional complaints, except as documented Endocrine Endocrine: Reports system reviewed and no additional complaints, except as documented Hematologic/Lymphatic Henatologic/Lymphatic: Reports system reviewed and no additional complaints, except as documented Allergic/Immunologic Allergic/Immunologic: Reports system reviewed and no additional complaints, except as documented Physical Exam General General appearance: alert and in no apparent distress Head Head exam: atraumatic and normocephalic Eye Eye exam: Present normal appearance Expanded ENT Exam External ear exam: Present normal external inspection Nasal speculum exam: Bilateral: other (clear drainage) Mouth exam: Present normal external inspection Teeth exam: Present normal inspection Throat exam: Present tonsillar erythema Comment: post nasal drainage noted Neck Neck exam: Present normal inspection; Absent lymphadenopathy Chest Chest inspection: Present normal inspection and symmetric chest wall rise Respiratory Respiratory exam: Present normal lung sounds bilaterally Cardiovascular Cardiovascular exam: Present regular rate and normal rhythm Abdominal Exam Abdominal exam: Present soft and normal bowel sounds Extremities Exam Extremities exam: Present normal inspection Back Exam Back exam: Present normal inspection Neurological Exam Neurological exam: Present alert and oriented X3 Psychiatric Psychiatric exam: Present normal affect and normal mood Skin Skin exam: Present warm, dry and intact Lymphatic Lymphatic Findings: no adenopathy Medical Decision Making Tomas Inquiry Pt receiving controlled substance: No Tomas was queried for this patient: No Vital Signs: 03/06/24 08:20 Temperature 97.9 F Temperature Source Oral Pulse Rate [Right Radial] 87 Respiratory Rate 18 Blood Pressure [Right Arm] 126/84 Blood Pressure Mean [Right Arm] 98 Blood Pressure Source [Right Arm] Automatic Cuff Blood Pressure Position [Right Arm] Sitting 02 Sat by Pulse Oximetry 97 Oxygen Delivery Method Room Air Lab Data Lab results reviewed: Yes I reviewed the patient's lab results. Lab Results 03/06/24 08:30: Strep Scn Rapid Clinic Negative Orders (Tests/Meds): ORDERS Category Date Time Status Strep Screen Confirmation Stat Micro 03/06/24 08:30 Received
[2024-03-06 08:56] VITALS: BP 126/84; PULSE 87; RESP 18; TEMP 36.6; O2SAT 97
== END 2024-03-06 08:56 | disposition home or self-care (01) ==
PROVIDERS: Emergency Provider Nurse Practitioner Family
DX: R05.9 Cough, unspecified (principal); R07.0 Pain in throat; J06.9 Acute upper respiratory infection, unspecified; Z20.818 Contact with and (suspected) exposure to other bacterial communicable diseases
CPT/HCPCS: 87880; 99212; 99214; G0463

== ENCOUNTER 2024-03-13 13:28 | Outpatient (CLI) | payer MEDICAID, SELFPAY ==
--- NOTE | 2024-03-13 13:32 | XR_ITS ---
FINAL REPORT CLINICAL HISTORY: knee pain; left COMPARISON: None FINDINGS: Three views of the left knee reveal no evidence of fracture or dislocation. The bony alignment is normal. The joint spaces are preserved. There is no evidence of joint effusion. No localized soft tissue abnormality is seen. IMPRESSION: No acute abnormality identified. Reviewed, Interpreted and Dictated by Marcos Marie III, MD Transcribed by Francisca Chaudhry Authenticated and [facility]
== END 2024-03-13 23:59 | disposition home or self-care (01) ==
LOC: RAD 13:29
PROVIDERS: Visit Provider Orthopaedic Surgery
DX: M25.562 Pain in left knee (principal)
CPT/HCPCS: 73562

== ENCOUNTER 2024-06-27 13:08 | Emergency (ER) | payer MEDICAID, SELFPAY ==
--- NOTE | 2024-06-27 13:06 | ECG_ITS ---
APPROVED REPORT Exam: Resting ECG HR:69 bpm ECG Measurements Heart Rate 69 AXES SC 131 P 23 QRSd 95 QRS 20 QT 364 T 31 QTc 383 Conclusion SINUS RHYTHM WITH SINUS ARRHYTHMIA NORMAL ECG UNCONFIRMED REPORT Electronically signed by : Yahir Slaughter, 06/27/2024 15:42:49
[2024-06-27 13:08] VITALS: BP 145/102; PULSE 72; RESP 18; TEMP 36.3; O2SAT 99; BMI 35.1
--- NOTE | 2024-06-27 13:13 | XR_ITS ---
FINAL REPORT CLINICAL HISTORY: Left sided chest pain. Shortness of breath. COMPARISON: None FINDINGS: No acute pulmonary density is evident. There is no evidence of effusion or other pleural disease. The mediastinum has a normal appearance. The cardiac silhouette is unremarkable. IMPRESSION: Unremarkable chest exam. Reviewed, Interpreted and Dictated by Breonna Qiu MD Transcribed by Dena Black Authenticated and [facility]
--- NOTE | 2024-06-27 13:22 | ED_ITS ---
Discharge Plan Disposition Patient Disposition: Home, Self-Care Chief Complaint: Chest Pain Prescriptions Prescriptions: No Action No Known Home Medications Referrals Follow up/Referrals: ProviderChilo MD [Primary Care Provider] - See instructions Antoine Dillon MD [Staff Physician] - See instructions Activity Restrictions/Add. Instructions Additional Instructions/Restrictions: Call your family doctor to establish care for this visit to the emergency department and schedule follow-up within 48 hours to ensure improvement. If you have any worsening of your condition or any other concerning signs or symptoms, return to the emergency department or your primary care doctor for further evaluation. If you continue having chest pain, call Dr. Dillon's office to schedule appointment for follow-up. Clinical Impressions Clinical Impression: Chest pain Qualifiers: Chest pain type: unspecified Qualified Code(s): R07.9 - Chest pain, unspecified Print Language Print Language: Citizen Of [place] Discharge ED Provider: Stalin Brown General Adult HPI <Yahir Slaughter MD - Last Filed: 06/27/24 15:39> General Chief complaint: Chest Pain Stated complaint: CHEST PAIN Time Seen by Provider: 06/27/24 13:09 Mode of Arrival: Ambulatory Source of Information: Patient Limitations: No Limitations Description of Symptoms (Recalled from ER Triage Doc. by RN): Pt. presents to the ED with complaints of chest pain that radiates down the left arm. She states it started aroun noon and feels like shocks in the center of her chest. Denies history of heart problems. History of Present Illness HPI narrative: This is a otherwise healthy 23-year-old female who presents with chest pain. States that her chest pain began approximately 1.5 hours prior to arrival characterized by substernal shocking and electric sensation that shoots to her left arm and causes her left arm become numb. States she also feels diaphoretic whenever it happens. Better with lying back. Denies associated shortness of breath. Denies fever or cough. Denies history of blood clots. Denies OCP use. Related Data Home Medications ?Medication ?Instructions ?Recorded ?Confirmed No Known Home Medications 06/27/24 06/27/24 Allergies Allergy/AdvReac Type Severity Reaction Status Date / Time No Known Allergies Allergy Verified 06/27/24 13:10 PFSH <Yahir Slaughter MD - Last Filed: 06/27/24 15:39> [facility]LY [facility] Disclaimer: The information contained in this section may have been updated after the patient was seen, as this information can be updated by other users. Medical History Acute post-hemorrhagic anemia hemorrhage Breast pain Depression Anxiety Migraine Asthma Polycystic ovary syndrome Surgical History Status post vaginal delivery S/P wisdom tooth extraction Family History Grandmother Cancer Social History (Updated 06/27/24 @ 13:09 by Nancy Rodas RN) Smoking Status: Current every day smoker second hand exposure: No alcohol intake: never substance use type: denies use current occupational status: unemployed Travel in the last 8 weeks: None household members: other housing: house marital status: single diet: lactose free <Yahir Slaughter MD - Last Filed: 06/27/24 15:39> ROS Obtained: Yes All systems reviewed & no additional complaints except as documented Physical Exam <Yahir Slaughter MD - Last Filed: 06/27/24 15:39> General General appearance: alert and in no apparent distress Eye Eye exam: Present normal appearance, PERRL and EOMI Respiratory Respiratory exam: Present normal lung sounds bilaterally; Absent respiratory distress Cardiovascular Cardiovascular exam: Present regular rate and normal rhythm Abdominal Exam Abdominal exam: Present soft and distention; Absent tenderness, guarding or rebound Extremities Exam Extremities exam: Present normal inspection Neurological Exam Neurological exam: Present alert and oriented X3 Skin Skin exam: Present warm and dry Medical Decision Making <Yahir Slaughter MD - Last Filed: 06/27/24 15:39> Medical Records Medical records reviewed: Yes I reviewed the patient's medical records. Screening: Per USPSTF and CDC recommendations, given the prevalence of disease in our region, it is our hospital?s policy to screen for HIV and viral Hepatitis for all patients aged 18 and over and those with ongoing risk factors. Tomas Inquiry Pt receiving controlled substance: No Vital Signs: 06/27/24 13:08 06/27/24 13:31 06/27/24 14:00 Temperature 97.4 F L Temperature Source Oral Pulse Rate 62 67 Pulse Rate [Right Brachial] 72 Respiratory Rate 18 12 12 Blood Pressure 110/85 134/82 Blood Pressure [Right Arm] 145/102 H Blood Pressure Mean [Right Arm] 116 Blood Pressure Source [Right Arm] Automatic Cuff Blood Pressure Position [Right Arm] Sitting 02 Sat by Pulse Oximetry 99 98 100 Oxygen Delivery Method Room Air Room Air 06/27/24 14:30 Temperature Temperature Source Pulse Rate 74 Pulse Rate [Right Brachial] Respiratory Rate 12 Blood Pressure 123/86 Blood Pressure [Right Arm] Blood Pressure Mean [Right Arm] Blood Pressure Source [Right Arm] Blood Pressure Position [Right Arm] 02 Sat by Pulse Oximetry 91 L Oxygen Delivery Method Lab Data Lab Results 06/27/24 13:30: WBC 6.5, RBC 4.70, Hgb 12.4, Hct 38.7, MCV 82.2, MCH 26.4 L, MCHC 32.2, RDW 16.1, Plt Count 215, MPV 9.3, Neut % (Auto) 68.2, Lymph % (Auto) 24.3, Sampson % (Auto) 4.6, Eos % (Auto) 2.5, Baso % (Auto) 0.5, Neut # (Auto) 4.4, Lymph # (Auto) 1.6, Sampson # (Auto) 0.3, Eos # (Auto) 0.2, Baso # (Auto) 0.0, Sodium 140, Potassium 3.4 L, Chloride 110 H, Carbon Dioxide 24, Anion Gap 9.4, BUN 7, Creatinine 0.60, Estimated Creat Clear 204, Estimated GFR 126, Est GFR ( Amer) 153, Glucose 92, Calcium 9.5, Total Bilirubin 0.5, AST 26, ALT 23, Alkaline Phosphatase 123, Troponin I < 0.01, Total Protein 7.3, Albumin 4.4, Globulin 2.9, Albumin/Globulin Ratio 1.5, HCG, Quant < 2, HIV 1&2 Antibody Rapid Nonreactive 06/27/24 14:44: Urine Color Yellow, Urine Appearance Clear, Urine pH 7.0, Ur Specific Weinert 1.015, Urine Protein Negative, Urine Glucose (UA) Negative, Urine Ketones Negative, Urine Blood Negative, Urine Nitrate Negative, Urine Bilirubin Negative, Urine Urobilinogen 0.2, Ur Leukocyte Esterase 1+ A, Urine RBC None, Urine WBC 3-5, Ur Squamous Epith Cells 3-5, Urine Bacteria None, Urine HCG, Qual Negative 06/27/24 16:13: Troponin I 0.02 06/27/24 13:30 06/27/24 13:30 Orders (Tests/Meds): ED MEDICATIONS Discontinued Medications Generic Name Dose Route Start Last Admin Trade Name Baylee PRN Reason Stop Dose Admin Acetaminophen 1,000 mg 06/27/24 13:13 06/27/24 13:31 Acetaminophen 500mg Tab PO 06/27/24 13:14 1,000 mg ONCE ONE Administration Lactated Ringer's 500 mls @ 999 mls/hr 06/27/24 13:13 06/27/24 13:32 Lactated Ringer's 500ml IV 06/27/24 13:43 999 mls/hr .Q31M ONE Administration Ibuprofen 400 mg 06/27/24 13:13 06/27/24 13:31 Ibuprofen 400 Mg Tablet PO 06/27/24 13:14 400 mg ONCE ONE Administration ORDERS Category Date Time Status Chest XR 2 view (NOT portable) [XR chest 2V] Stat Exams 06/27/24 13:13 Completed Beta HCG, Quant [HCG,Quantitative] Stat Lab 06/27/24 13:30 Completed CBC w/Auto Diff [Complete Blood Count Auto Diff] Stat Lab 06/27/24 13:30 Completed CMP [Comprehensive Metabolic Panel] Stat Lab 06/27/24 13:30 Completed HIV (1&2) Antibody Rapid Stat Lab 06/27/24 13:30 Completed Hep C Ab with Reflex to RNA Stat Lab 06/27/24 13:30 Received Troponin I Q3H Lab 06/27/24 16:13 Completed Troponin I Q3H Lab 06/27/24 19:15 Ordered Troponin I Stat Lab 06/27/24 13:30 Completed UA [Urinalysis and Microscopic] Stat Lab 06/27/24 14:44 Completed Urine , HCG Qual. Stat Lab 06/27/24 14:44 Completed Urine Culture Stat Micro 06/27/24 14:44 Received ECG Data Tracing #1: I reviewed this ECG and interpreted as documented below: Sinus rhythm with sinus arrhythmia at a rate of 69, QTc 383, normal axis, no STEMI HEART Score History (anamnesis): Moderately suspicious ECG: Normal Age: <45 years Risk factors: No known risk factors Troponin: </= normal limit HEART Score: 1 Medical Decision Narrative: In summary, this otherwise healthy 23-year-old female presents to the emergency department today with chest pain. On initial evaluation patient is afebrile, hemodynamically stable, nontoxic-appearing, no acute distress. Differential diagnosis includes but is not limited to ACS, PE, costochondritis, pneumothorax, pneumonia. Based on these concerns, I ordered CBC, CMP, test, troponin, EKG, chest x-ray. Considered CT PE, however patient low risk by Wells criteria and PERC negative. ECG personally interpreted as noted above. Labs personally reviewed demonstrate unremarkable CBC, mild hypokalemia at 3.4, undetectable initial troponin, negative test. XR personally interpreted demonstrates no acute cardiopulmonary pathology. At the time of shift change, patient's second troponin was pending. Heart score of 1. Care handed off to the next provider on. <Stalin Brown MD - Last Filed: 06/27/24 17:09> Vital Signs: 06/27/24 13:08 06/27/24 13:31 06/27/24 14:00 Temperature 97.4 F L Temperature Source Oral Pulse Rate 62 67 Pulse Rate [Right Brachial] 72 Respiratory Rate 18 12 12 Blood Pressure 110/85 134/82 Blood Pressure [Right Arm] 145/102 H Blood Pressure Mean [Right Arm] 116 Blood Pressure Source [Right Arm] Automatic Cuff Blood Pressure Position [Right Arm] Sitting 02 Sat by Pulse Oximetry 99 98 100 Oxygen Delivery Method Room Air Room Air 06/27/24 14:30 Temperature Temperature Source Pulse Rate 74 Pulse Rate [Right Brachial] Respiratory Rate 12 Blood Pressure 123/86 Blood Pressure [Right Arm] Blood Pressure Mean [Right Arm] Blood Pressure Source [Right Arm] Blood Pressure Position [Right Arm] 02 Sat by Pulse Oximetry 91 L Oxygen Delivery Method Lab Data Lab Results 06/27/24 13:30: WBC 6.5, RBC 4.70, Hgb 12.4, Hct 38.7, MCV 82.2, MCH 26.4 L, MCHC 32.2, RDW 16.1, Plt Count 215, MPV 9.3, Neut % (Auto) 68.2, Lymph % (Auto) 24.3, Sampson % (Auto) 4.6, Eos % (Auto) 2.5, Baso % (Auto) 0.5, Neut # (Auto) 4.4, Lymph # (Auto) 1.6, Sampson # (Auto) 0.3, Eos # (Auto) 0.2, Baso # (Auto) 0.0, Sodium 140, Potassium 3.4 L, Chloride 110 H, Carbon Dioxide 24, Anion Gap 9.4, BUN 7, Creatinine 0.60, Estimated Creat Clear 204, Estimated GFR 126, Est GFR ( Amer) 153, Glucose 92, Calcium 9.5, Total Bilirubin 0.5, AST 26, ALT 23, Alkaline Phosphatase 123, Troponin I < 0.01, Total Protein 7.3, Albumin 4.4, Globulin 2.9, Albumin/Globulin Ratio 1.5, HCG, Quant < 2, HIV 1&2 Antibody Rapid Nonreactive 06/27/24 14:44: Urine Color Yellow, Urine Appearance Clear, Urine pH 7.0, Ur Specific Weinert 1.015, Urine Protein Negative, Urine Glucose (UA) Negative, Urine Ketones Negative, Urine Blood Negative, Urine Nitrate Negative, Urine Bilirubin Negative, Urine Urobilinogen 0.2, Ur Leukocyte Esterase 1+ A, Urine RBC None, Urine WBC 3-5, Ur Squamous Epith Cells 3-5, Urine Bacteria None, Urine HCG, Qual Negative 06/27/24 16:13: Troponin I 0.02 Orders (Tests/Meds): ED MEDICATIONS Discontinued Medications Generic Name Dose Route Start Last Admin Trade Name Baylee PRN Reason Stop Dose Admin Acetaminophen 1,000 mg 06/27/24 13:13 06/27/24 13:31 Acetaminophen 500mg Tab PO 06/27/24 13:14 1,000 mg ONCE ONE Administration Lactated Ringer's 500 mls @ 999 mls/hr 06/27/24 13:13 06/27/24 13:32 Lactated Ringer's 500ml IV 06/27/24 13:43 999 mls/hr .Q31M ONE Administration Ibuprofen 400 mg 06/27/24 13:13 06/27/24 13:31 Ibuprofen 400 Mg Tablet PO 06/27/24 13:14 400 mg ONCE ONE Administration ORDERS Category Date Time Status Chest XR 2 view (NOT portable) [XR chest 2V] Stat Exams 06/27/24 13:13 Completed Beta HCG, Quant [HCG,Quantitative] Stat Lab 06/27/24 13:30 Completed CBC w/Auto Diff [Complete Blood Count Auto Diff] Stat Lab 06/27/24 13:30 Completed CMP [Comprehensive Metabolic Panel] Stat Lab 06/27/24 13:30 Completed HIV (1&2) Antibody Rapid Stat Lab 06/27/24 13:30 Completed Hep C Ab with Reflex to RNA Stat Lab 06/27/24 13:30 Received Troponin I Q3H Lab 06/27/24 16:13 Completed Troponin I Q3H Lab 06/27/24 19:15 Ordered Troponin I Stat Lab 06/27/24 13:30 Completed UA [Urinalysis and Microscopic] Stat Lab 06/27/24 14:44 Completed Urine , HCG Qual. Stat Lab 06/27/24 14:44 Completed Urine Culture Stat Micro 06/27/24 14:44 Received HEART Score HEART Score: 1 Medical Decision Narrative: In summary, this otherwise healthy 23-year-old female presents to the emergency department today with chest pain. On initial evaluation patient is afebrile, hemodynamically stable, nontoxic-appearing, no acute distress. Differential diagnosis includes but is not limited to ACS, PE, costochondritis, pneumothorax, pneumonia. Based on these concerns, I ordered CBC, CMP, test, troponin, EKG, chest x-ray. Considered CT PE, however patient low risk by Wells criteria and PERC negative. ECG personally interpreted as noted above. Labs personally reviewed demonstrate unremarkable CBC, mild hypokalemia at 3.4, undetectable initial troponin, negative test. XR personally interpreted demonstrates no acute cardiopulmonary pathology. At the time of shift change, patient's second troponin was pending. Heart score of 1. Care handed off to the next provider on. Stephanie: I assumed primary responsibility for this patient after signout from previous physician. On my evaluation, patient no acute distress. Independent interpretation of workup demonstrates nonactionable hematologic workup including troponin. Patient has heart score of 1. Repeat troponin also negative. Because patient at baseline without signs or symptoms of clinical decompensation, deemed appropriate for discharge. Results were relayed to patient who voiced understanding and were agreeable to outpatient management and follow up. I discussed my clinical impression with patient and answered all questions. At this time, the evidence for any other entities in the differential is insufficient to warrant any further testing or ED observation. This was explained as well. Advisory was given that persistent or worsening symptoms require further evaluation. I confirmed the understanding of this discussion. Critical Care <Yahir Slaughter MD - Last Filed: 06/27/24 15:39> Critical Care Time Critical Care Time: No
[2024-06-27 13:31] VITALS: BP 110/85; PULSE 62; RESP 12; O2SAT 98
[2024-06-27] MEDS: ACETAMINOPHEN 500MG TAB 1000 MG PO (13:31)
[2024-06-27] MEDS: IBUPROFEN 400 MG TABLET PO (13:31)
[2024-06-27] MEDS: RINGERS SOLUTION,LACTATED 500 ML 999 ML IV (13:32)
[2024-06-27 13:40] LABS: Basophils % 0.5 % (0.1-2.0); Eosinophils # 0.2 K/mm3 (0.0-0.4); Eosinophils % 2.5 % (0.1-12.0); Hematocrit 38.7 % (37.0-47.0); Hemoglobin 12.4 g/dL (12.2-16.2); Lymphocytes # 1.6 K/mm3 (0.7-4.5); Lymphocytes % 24.3 % (10-50); Mean Corpuscular HGB Conc 32.2 g/dL (31.8-35.4); Mean Corpuscular Hemoglobin 26.4 pg (27.0-31.2); Mean Corpuscular Volume 82.2 fl (81-99); Mean Platelet Volume 9.3 fl (7.4-10.4); Monocytes # 0.3 K/mm3 (0.1-1.0); Monocytes % 4.6 % (1.7-9.3); Neutrophils # 4.4 K/mm3 (1.8-7.8); Neutrophils % 68.2 % (37.0-80.0); Platelet Count 215 K/mm3 (142-424); Red Cell Distribution Width 16.1 % (11.5-17.5); White Blood Count 6.5 K/mm3 (4.8-10.8)
[2024-06-27 13:53] LABS: Alanine Aminotransferase 23 U/L (12-78); Albumin Level 4.4 g/dl (3.5-5.0); Albumin/Globulin Ratio 1.5 (1.1-1.8); Alkaline Phosphatase 123 U/L (38-126); Anion Gap 9.4 mEq/L (5-15); Aspartate Amino Transferase 26 U/L (14-36); Bilirubin,Total 0.5 mg/dl (0.2-1.3); Blood Urea Nitrogen 7 mg/dl (7-17); Calcium 9.5 mg/dl (8.4-10.2); Carbon Dioxide 24 mmol/L (22.0-30.0); Chloride 110 mmol/L (98-107); Creatinine Clearance Estimated 204 mL/min (50-200); Estimated Glomerular Filt Rate 126 ml/min (>60); GFR (African American) 153 ML/MIN (>60); Globulin 2.9 g/dL (1.3-3.2); Glucose 92 mg/dl (74-100); Potassium 3.4 mmoL/L (3.5-5.1); Sodium 140 mmol/L (136-145); Total Protein,Serum 7.3 g/dl (6.3-8.2)
[2024-06-27 14:00] VITALS: BP 134/82; PULSE 67; RESP 12; O2SAT 100
[2024-06-27 14:13] LABS: HCG,Quantitative < 2 mIU/ml (0-5.42); Troponin I < 0.01 ng/ml (0.00-0.034)
[2024-06-27 14:30] VITALS: BP 123/86; PULSE 74; RESP 12; O2SAT 91
[2024-06-27 15:20] LABS: Microscopic, Urine URINE MICROSCOPIC (MICROSCOPIC)
[2024-06-27 15:22] LABS: Appearance,Urine CLEAR (Clear); Bilirubin,Urine Negative (Negative); Blood, Urine Negative (Negative); Color,Urine YELLOW (Yellow); Glucose,Urine (UA) Negative (Negative); Ketones,Urine Negative (Negative); Leukocyte Esterase,Urine 1+ (Negative); Nitrate,Urine Negative (Negative); Protein,Urine Negative (Negative); Specific Gravity, Urine 1.015 (1.005-1.030); Urobilinogen,Urine 0.2 EU/dl (0.2)
[2024-06-27 15:24] LABS: Urine Pregnancy, HCG Qual. Negative (Negative)
[2024-06-27 15:24] LABS: HIV (1&2) Antibody Rapid NONREACTIVE (NONREACTIVE)
[2024-06-27 16:54] LABS: Troponin I 0.02 ng/ml (0.00-0.034)
[2024-06-27 17:22] VITALS: BP 129/74; PULSE 78; RESP 16; TEMP 36.3; O2SAT 99
[2024-06-28 09:31] LABS: HCV Ab Non Reactive (Non Reactive)
[2024-06-29 21:23] LABS: Neisseria gonorrhoeae, NAA Negative (Negative)
[2024-06-30 07:12] LABS: Trichomonas Vaginalis, NAA Negative (Negative)
== END 2024-06-27 17:23 | disposition home or self-care (01) ==
PROVIDERS: Student in an Organized Health Care Education/Training Program; Emergency Provider Emergency Medicine
DX: R07.9 Chest pain, unspecified (principal); I49.9 Cardiac arrhythmia, unspecified
CPT/HCPCS: 71046; 80053; 81001; 81025; 84484; 84702; 85025; 86803; 87086; 87389; 87491; 87591; 87661; 93005; 99284; J7120

== ENCOUNTER 2024-09-05 00:11 | Emergency (ER) | payer MEDICAID, SELFPAY ==
[2024-09-05 00:20] VITALS: BP 130/92; PULSE 90; O2SAT 98
[2024-09-05 00:25] VITALS: BP 130/92; PULSE 90; RESP 20; TEMP 37.1; O2SAT 97; BMI 32.9
--- NOTE | 2024-09-05 00:30 | PC.NURSE ---
Triage NOte Pt's abdomen soft and non tender to palpation. States she has no vomiting or diarrhea. Skin pink warm and dry Resp full and easy Speechc lear and appropriate BS x4 quadrants + at bedside
--- NOTE | 2024-09-05 00:30 | CT_ITS ---
PROCEDURE INFORMATION: Exam: CT Abdomen And Pelvis With Contrast Exam date and time: 09/05/2024 1:34 AM Age: 23 years old Clinical indication: Increasing lower abdominal pain. TECHNIQUE: Imaging protocol: Computed tomography of the abdomen and pelvis with contrast. COMPARISON: No relevant prior studies available. FINDINGS: Lungs: Lung bases are clear. Liver: Dome of the liver not included. Visualized portions appear unremarkable. Gallbladder and biliary ducts: Partially contracted gallbladder. No calcified stones. No ductal dilation. Pancreas: Normal pancreas. No ductal dilation. Spleen: Normal spleen. No splenomegaly. Adrenal glands: Normal adrenal glands. Kidneys and ureters: Normal kidneys. No hydronephrosis. No calculus. Stomach and bowel: No acute bowel abnormality. No obstruction. No mucosal thickening. No definite gastric abnormality. Appendix: Normal appendix. Intraperitoneal space: No free fluid or free air. Vasculature: No abdominal aortic aneurysm or dissection. Portal vein and mesenteric vessels appear grossly patent. Lymph nodes: No adenopathy. Urinary bladder: Urinary bladder is completely decompressed, limiting evaluation. No obvious bladder abnormality. Reproductive: Uterus and adnexal structures are grossly unremarkable. Bones/joints: No acute osseous abnormality. Soft tissues: Unremarkable. IMPRESSION: No acute findings.
[2024-09-05 02:50] VITALS: BP 130/92; PULSE 90; RESP 16; TEMP 36.9; O2SAT 98
--- NOTE | 2024-09-05 03:26 | PC.NURSE ---
Pt seen during downtime. Pt's IV initiated at 0045 #20 R forearm. Labs drawn and sent at that time. Urine also collected and sent. [address] scan ambulatory. 0140 back to the room. 0240 given Cefdiner PO Pt discharged with instructions at 0250 Pt verbalized an understanding of instructions. Skin pink warm and dry Resp full and easy Speech clear and appropriate.
--- NOTE | 2024-09-05 03:26 | PC.NURSE ---
notified scalehouse attendant of admission
[2024-09-05 03:49] LABS: White Blood Count 10.8 K/mm3 (4.8-10.8)
[2024-09-05 03:50] LABS: Basophils % 0.7 % (0.1-2.0); Eosinophils % 1.6 % (0.1-12.0); Hematocrit 37.3 % (37.0-47.0); Hemoglobin 12.8 g/dL (12.2-16.2); Lymphocytes # 2.4 K/mm3 (0.7-4.5); Lymphocytes % 22.7 % (10-50); Mean Corpuscular HGB Conc 34.3 g/dL (31.8-35.4); Mean Corpuscular Hemoglobin 26.8 pg (27.0-31.2); Mean Platelet Volume 8.7 fl (7.4-10.4); Monocytes # 0.4 K/mm3 (0.1-1.0); Monocytes % 3.7 % (1.7-9.3); Neutrophils # 7.6 K/mm3 (1.8-7.8); Neutrophils % 70.3 % (37.0-80.0); Platelet Count 209 K/mm3 (142-424); Red Blood Count 4.79 M/mm3 (4.20-5.40); Red Cell Distribution Width 15.6 % (11.5-17.5)
[2024-09-05 03:51] LABS: Alanine Aminotransferase 19 U/L (12-78); Albumin Level 4.5 g/dl (3.5-5.0); Alkaline Phosphatase 123 U/L (38-126); Anion Gap 15.4 mEq/L (5-15); Aspartate Amino Transferase 26 U/L (14-36); Basophils # 0.1 K/mm3 (0-0.2); Bilirubin,Total 0.3 mg/dl (0.2-1.3); Blood Urea Nitrogen 11 mg/dl (7-17); Calcium 9.2 mg/dl (8.4-10.2); Carbon Dioxide 19 mmol/L (22.0-30.0); Chloride 111 mmol/L (98-107); Creatinine Clearance Estimated 191 mL/min (50-200); Eosinophils # 0.2 K/mm3 (0.0-0.4); Estimated Glomerular Filt Rate 126 ml/min (>60); GFR (African American) 153 ML/MIN (>60); Globulin 2.3 g/dL (1.3-3.2); Glucose 113 mg/dl (74-100); Potassium 3.4 mmoL/L (3.5-5.1); Sodium 142 mmol/L (136-145); Total Protein,Serum 6.8 g/dl (6.3-8.2)
[2024-09-05 03:58] LABS: Appearance,Urine CLEAR (Clear); Bilirubin,Urine Negative (Negative); Blood, Urine 3+ (Negative); Color,Urine YELLOW (Yellow); Glucose,Urine (UA) Negative (Negative); Ketones,Urine Negative (Negative); Leukocyte Esterase,Urine Negative (Negative); Microscopic, Urine URINE MICROSCOPIC (MICROSCOPIC); Nitrate,Urine POSITIVE (Negative); Protein,Urine TRACE (Negative); Specific Gravity, Urine >= 1.030 (1.005-1.030); Urine Pregnancy, HCG Qual. Negative (Negative); Urobilinogen,Urine 0.2 EU/dl (0.2)
[2024-09-05 03:59] LABS: Bacteria,Urine 1+ /lpf; RBC,Urine TNTC #/hpf (0-3); WBC,Urine Occasional #/hpf (0-3)
[2024-09-05 04:00] LABS: INR 1.01 (0.9-1.1); Prothrombin Time 11.3 seconds (10.1-12.5)
--- NOTE | 2024-09-05 05:30 | HMH.EDGENADL ---
Discharge Plan Disposition Patient Disposition: Home, Self-Care Condition: Good Prescriptions Prescriptions: No Action cephalexin 500 mg capsule 500 mg PO Q6H 5 Days Qty: 20 0RF Referrals Follow up/Referrals: Provider,Referral, MD [Primary Care Provider] - See instructions Activity Restrictions/Add. Instructions Additional Instructions/Restrictions: You were evaluated in the ER and are appropriate for discharge at this time. Take the prescribed cefdinir as directed, do not skip doses, do not stop taking it early. Drink plenty of water, take Tylenol or ibuprofen if needed for pain, do not exceed the recommended dose on the bottle. Drink water and eat a small snack each time you take these medications to avoid side effects. Keep the lesion near your labia clean and dry. Follow closely with OB. Please call them in the morning to make an appointment for reevaluation of your pelvic pain and uncomfortable stooling. Follow-up with your primary care doctor for reevaluation. Return to the ER with new, worsening, or otherwise concerning symptoms as discussed. Clinical Impressions Clinical Impression: UTI (urinary tract infection) Stand Alone Forms Stand Alone Forms: Work/School Release Print Language Print Language: Vietnamese Discharge ED Provider: José Hardin General Adult HPI General Chief complaint: Vaginal Bleeding Stated complaint: abd pain, pressure in vagina when bm, lesion Time Seen by Provider: 09/05/24 00:35 Mode of Arrival: Ambulatory Source of Information: Patient Limitations: No Limitations Description of Symptoms (Recalled from ER Triage Doc. by RN): Pt states she has had abd pain and low back pain for last few hours. Pt also states she has a wound on vulva that she has been diagnosed with an ingrown hair Pt states she has had vaginal bleeding, a period for past 4 days. States she feels like she has a bulge in her vagina History of Present Illness HPI narrative: 23-year-old female who is 9 months presents to the ER for complaints of tenesmus, 2 episodes of diarrhea, the last 1 had small blood streaking on the outside of otherwise brown stool, she states she feels cramping in both the front and the back as well as pressure in the vaginal area when she has a bowel movement.? Patient reports she is currently on her period and has had heavier flow periods since being . She states she had her last period last month. She does report a history of constipation usually only having bowel movements once to twice weekly.? She reports she typically does not have abdominal pain or pain with defecation. She reports she has had a lesion to the right of her vagina that they thought was an ingrown hair. She has a Band-Aid on it at this time. She does not report pain or swelling in this area at this time.? Patient states she has no nausea or fevers, no headache, dizziness, numbness, tingling, or weakness. She does report mild right lower quadrant abdominal pain.? She states she has no chest pain, difficulty breathing, cough, congestion, or sore throat.? She denies dysuria or hematuria. Patient reports she is not currently on any daily medications, no known drug allergies, no history of STD. Related Data Previous Rx's ?Medication ?Instructions ?Recorded cephalexin 500 mg capsule 500 mg PO Q6H 5 days #20 caps 07/17/24 Allergies Allergy/AdvReac Type Severity Reaction Status Date / Time No Known Allergies Allergy Verified 07/17/24 13:06 [facility] Disclaimer: The information contained in this section may have been updated after the patient was seen, as this information can be updated by other users. Medical History (Updated 09/05/24 @ 03:37 by Sonny Garcia RN) Hair follicle infection Acute post-hemorrhagic anemia hemorrhage Breast pain Depression Anxiety Migraine Asthma Polycystic ovary syndrome Surgical History Status post vaginal delivery S/P wisdom tooth extraction Family History Grandmother Cancer Social History Smoking Status: Never smoker second hand exposure: No alcohol intake: never substance use type: denies use current occupational status: unemployed Travel in the last 8 weeks: None household members: other housing: house marital status: single diet: lactose free Other Medical History Have you received the Flu Vaccine for this season: No Have you received the Pneumonia Vaccine: No ROS Obtained: Yes Systems reviewed as appropriate & no additional complaints except as documented ROS per HPI Physical Exam General General appearance: alert and in no apparent distress Head Head exam: atraumatic and normocephalic Eye Eye exam: Present PERRL and EOMI ENT ENT exam: Present mucous membranes moist Neck Neck exam: Present normal inspection and full ROM Chest Chest inspection: Present symmetric chest wall rise Respiratory Respiratory exam: Present normal lung sounds bilaterally; Absent respiratory distress, wheezes or stridor Cardiovascular Cardiovascular exam: Present regular rate and normal rhythm Abdominal Exam Abdominal exam: Present soft and tenderness (RLQ, mild); Absent distention, guarding, rebound or rigidity Rectal Exam Rectal exam: Present normal inspection and other (no fissure); Absent hemorrhoids External exam: Present lesions ( pinhole lesion lateral to the right labia majora with no surrounding erythema, induration, no fluctuance, no tenderness to palpation. Lesion is not vesicular, no bleeding.) Speculum exam: Present vaginal bleeding and other (no abnormality of cervix appreciated) Bimanual exam: Present left adnexal tenderness; Absent cervical motion tenderness, right adnexal tenderness, adnexal mass, right adnexal mass, left adnexal mass, uterine enlargement or uterine tenderness Extremities Exam Extremities exam: Present full ROM; Absent edema Neurological Exam Neurological exam: Present alert and oriented X3; Absent motor sensory deficit Psychiatric Psychiatric exam: Present normal affect and normal mood Skin Skin exam: Present warm and dry Medical Decision Making Medical Records Screening: Per USPSTF and CDC recommendations, given the prevalence of disease in our region, it is our hospital?s policy to screen for HIV and viral Hepatitis for all patients aged 18 and over and those with ongoing risk factors. Tomas Inquiry Pt receiving controlled substance: No Vital Signs: 09/05/24 00:20 09/05/24 00:25 09/05/24 02:50 Temperature 98.8 F 98.4 F Temperature Source Oral Oral Pulse Rate 90 90 Pulse Rate [Right Brachial] 90 Respiratory Rate 20 16 Blood Pressure 130/92 H 130/92 H Blood Pressure [Right Arm] 130/92 H Blood Pressure Mean [Right Arm] 104 Blood Pressure Source Automatic Cuff Blood Pressure Source [Right Arm] Automatic Cuff Blood Pressure Position Sitting Blood Pressure Position [Right Arm] Sitting 02 Sat by Pulse Oximetry 98 97 Oxygen Delivery Method Room Air Room Air Lab Data Lab Results 09/05/24 00:22: Urine Color Yellow, Urine Appearance Clear, Urine pH 6.0, Ur Specific [place] >= 1.030, Urine Protein Trace, Urine Glucose (UA) Negative, Urine Ketones Negative, Urine Blood 3+ A, Urine Nitrate Positive A, Urine Bilirubin Negative, Urine Urobilinogen 0.2, Ur Leukocyte Esterase Negative, Urine RBC Tntc, Urine WBC Occasional, Ur Squamous Epith Cells 3-5, Urine Bacteria 1+, Urine HCG, Qual Negative 09/05/24 00:47: WBC 10.8, RBC 4.79, Hgb 12.8, Hct 37.3, MCV 78.0 L, MCH 26.8 L, MCHC 34.3, RDW 15.6, Plt Count 209, MPV 8.7, Neut % (Auto) 70.3, Lymph % (Auto) 22.7, [place] % (Auto) 3.7, Eos % (Auto) 1.6, Baso % (Auto) 0.7, Neut # (Auto) 7.6, Lymph # (Auto) 2.4, [place] # (Auto) 0.4, Eos # (Auto) 0.2, Baso # (Auto) 0.1, PT 11.3, INR 1.01, Sodium 142, Potassium 3.4 L, Chloride 111 H, Carbon Dioxide 19 L, Anion Gap 15.4 H, BUN 11, Creatinine 0.60, Estimated Creat Clear 191, Estimated GFR 126, Est GFR ( Amer) 153, Glucose 113 H, Calcium 9.2, Total Bilirubin 0.3, AST 26, ALT 19, Alkaline Phosphatase 123, Total Protein 6.8, Albumin 4.5, Globulin 2.3, Albumin/Globulin Ratio 2.0 H 09/05/24 00:47 09/05/24 00:47 Orders (Tests/Meds): ED MEDICATIONS Discontinued Medications Generic Name Dose Route Start Last Admin Trade Name Freq PRN Reason Stop Dose Admin Cefdinir 300 mg 09/05/24 02:40 Cefdinir 300mg Capsule PO 09/06/24 02:39 DAILY PENDING SALE TO [facility] ORDERS Category Date Time Status CT abdomen pelvis w con Stat Cat Scan 09/05/24 00:30 Ordered CBC w/Auto Diff [Complete Blood Count Auto Diff] Stat Lab 09/05/24 00:47 Completed CMP [Comprehensive Metabolic Panel] Stat Lab 09/05/24 00:47 Completed Chlam/Gono/Mycoplasma Panel Stat Lab 09/05/24 01:29 Received Prothrombin Time INR Routine Lab 09/05/24 00:47 Completed Trichomonas Vaginalis, NINA Stat Lab 09/05/24 01:29 Received Urinalysis and Microscopic Stat Lab 09/05/24 00:22 Completed Urine , HCG Qual. Stat Lab 09/05/24 00:22 Completed Urine Culture Stat Micro 09/05/24 00:22 Received Medical Decision Narrative: In summary, this 23-year-old female who is 9 months but otherwise healthy presents to the emergency department today with painful defecation, 2 episodes of diarrhea, right lower quadrant abdominal pain, vaginal pressure. On initial evaluation patient is hemodynamically stable, afebrile, abdominal exam notable for mild right lower quadrant tenderness to palpation without rebound or guarding, nonacute abdomen, no findings of peritonitis, no CVA tenderness, cardiopulmonary exam benign, exam performed demonstrates pinhole lesion lateral to the right labia majora with no surrounding erythema, induration, no fluctuance, no tenderness to palpation. Lesion is not vesicular, no bleeding.? Speculum exam unremarkable, no cervical motion tenderness, tenderness to palpation on the bimanual exam of the left lower area without obvious mass or other abnormality appreciated.? Differential diagnosis includes but is not limited to urinary tract infection, appendicitis, mesenteric adenitis, viral syndrome, constipation, , STI, bartholin cyst/abscess which is not appreciated, I considered the possibility of prolapse but do not appreciate any evidence of this on exam, considered the possibility of anal fissure but do not appreciate one on exam, I also do not appreciate hemorrhoids. Based on these concerns, I ordered serum labs, urine studies, test, CT abdomen pelvis. Patient was resting comfortably, no medications were initially administered for treatment. Labs personally reviewed demonstrate no leukocytosis, hemoglobin 12.8, normal platelets.? hCG negative.? Urinalysis with few WBCs but nitrite positive, slightly contaminated with squamous cells as well as blood which patient reports is from her ongoing menstrual period.? Given her symptoms and concern for possible UTI and will treat patient for UTI.? CMP nonactionable. CT abdomen pelvis personally interpreted does not demonstrate acute abnormality, no findings of appendicitis, pyelonephritis, mass, or other lesion. See radiology read for final interpretation. With findings for UTI which do explain patient's symptoms, I treated her with cefdinir in the ER. I also prescribe this medication for outpatient management.? Patient states she has been following with OB for the small lesion external to and lateral to her right labia, I encouraged her to follow closely with them and to make an appointment for immediate reevaluation of her discomfort with defecation.? Patient was given instructions on symptomatic management, follow up instructions, and return precautions for the emergency department. Patient indicated understanding and was discharged in stable condition.? Critical Care Critical Care Time Critical Care Time: No
[2024-09-05] MEDS: SODIUM CHLORIDE 0.9% 10ML SYR (RAD ONLY) 10 ML IV (06:33)
[2024-09-05] MEDS: IOPAMIDOL-370 (76%);100ML BOTTLE 75 ML IV (06:33)
[2024-09-07 06:37] LABS: Trichomonas Vaginalis, NAA Negative (Negative)
== END 2024-09-05 02:50 | disposition home or self-care (01) ==
PROVIDERS: Emergency Provider Emergency Medicine
DX: N39.0 Urinary tract infection, site not specified (principal); R10.9 Unspecified abdominal pain; M54.50 Low back pain, unspecified
CPT/HCPCS: 74177; 80053; 81001; 81025; 85025; 85610; 87086; 87491; 87563; 87591; 87661; 87798; 99284; Q9967

== ENCOUNTER 2024-10-05 10:58 | Outpatient (CLI) | payer MEDICAID, SELFPAY ==
[2024-10-05 11:25] LABS: Basophils % 0.3 % (0.1-2.0); Eosinophils # 0.1 K/mm3 (0.0-0.4); Eosinophils % 1.5 % (0.1-12.0); Hematocrit 38.9 % (37.0-47.0); Hemoglobin 12.8 g/dL (12.2-16.2); Lymphocytes # 1.2 K/mm3 (0.7-4.5); Lymphocytes % 19.2 % (10-50); Mean Corpuscular HGB Conc 32.9 g/dL (31.8-35.4); Mean Corpuscular Hemoglobin 25.8 pg (27.0-31.2); Mean Corpuscular Volume 78.4 fl (81-99); Monocytes # 0.5 K/mm3 (0.1-1.0); Monocytes % 8.4 % (1.7-9.3); Neutrophils # 4.4 K/mm3 (1.8-7.8); Neutrophils % 70.3 % (37.0-80.0); Platelet Count 215 K/mm3 (142-424); Red Blood Count 4.96 M/mm3 (4.20-5.40); Red Cell Distribution Width 14.5 % (11.5-17.5); White Blood Count 6.2 K/mm3 (4.8-10.8)
[2024-10-05 12:21] LABS: HCG,Quantitative < 2 mIU/ml (0-5.42)
== END 2024-10-05 23:59 | disposition home or self-care (01) ==
LOC: LAB 10:59
PROVIDERS: PCP Family Medicine; Visit Provider Obstetrics & Gynecology
DX: N93.9 Abnormal uterine and vaginal bleeding, unspecified (principal)
CPT/HCPCS: 36415; 84702; 85025

== ENCOUNTER 2024-11-29 10:30 | Outpatient (CLI) | payer MEDICAID, SELFPAY | END 2024-11-29 23:59 | disposition home or self-care (01) | LOC: LAB.DROPOF 11-30 13:31 | PROVIDERS: PCP Nurse Practitioner Family; Visit Provider Nurse Practitioner Family | DX: J02.9 Acute pharyngitis, unspecified (principal); Z72.0 Tobacco use | CPT/HCPCS: 87070 ==

== ENCOUNTER 2024-12-02 17:28 | Emergency (ER) | payer MEDICAID, SELFPAY ==
[2024-12-02 17:34] VITALS: BP 126/87; PULSE 61; RESP 16; TEMP 36.6; O2SAT 99; BMI 31.8
--- NOTE | 2024-12-02 17:34 | XR_ITS ---
PROCEDURE INFORMATION: Exam: XR Chest Exam date and time: 12/02/2024 5:46 PM Age: 24 years old Clinical indication: Pain; Other: Cp TECHNIQUE: Imaging protocol: Radiologic exam of the chest. Views: 1 view. COMPARISON: CR XR CHEST 2V 06/27/2024 2:37 PM FINDINGS: Lungs: Unremarkable. No consolidation. Pleural spaces: Unremarkable. No pleural effusion. No pneumothorax. Heart/Mediastinum: Unremarkable. No cardiomegaly. Bones/joints: Unremarkable. IMPRESSION: No acute findings.
--- NOTE | 2024-12-02 17:39 | ED_ITS ---
<Statement entered by Macy Weinberg MD - 12/03/24 00:19> I was consulted by the JOHNNA, and we discussed the complexity of problems being addressed. I approved the treatment and management plan for this patient's care in the emergency department, thus performing a substantive portion of the medical decision making. Macy Weinberg MD Discharge Plan Disposition Patient Disposition: Home, Self-Care Condition: Good Prescriptions Prescriptions: No Action sertraline [Zoloft] 25 mg tablet 25 mg PO DAILY Qty: 30 3RF prednisone 10 mg tablets,dose pack See Rx Instructions PO PER PKG DIR Qty: 21 0RF Rx Instructions: PO PER PKG DIR Referrals Follow up/Referrals: Provider,Chilo, [Primary Care Provider] - See instructions Activity Restrictions/Add. Instructions Additional Instructions/Restrictions: Today your evaluated in the emergency department and diagnosed with COVID. Please increase your fluid intake. Please take acetaminophen and ibuprofen [id number] for symptomatic relief. Please follow-up with your PCP within 7 days. Return to the ED for worsening of condition. Clinical Impressions Clinical Impression: COVID Stand Alone Forms Stand Alone Forms: Work/School Release Instructions Patient Instructions: DI for Atypical Chest Pain Print Language Print Language: Mongolian Discharge ED Provider: Macy Weinberg General Adult HPI General Chief complaint: Chest Pain Stated complaint: Chest Pain Time Seen by Provider: 12/02/24 17:30 History of Present Illness HPI narrative: patient is a 24-year-old female no significant PMH who presents to the ED for chest pain x 1 day. Patient states that she feels short of breath. States that her boyfriend was diagnosed with COVID this past week. Related Data Previous Rx's ?Medication ?Instructions ?Recorded sertraline 25 mg tablet (Zoloft) 25 mg PO DAILY anxiety #30 tabs 10/16/24 prednisone 10 mg tablets in a dose See Rx Instructions PO PER PKG DIR 11/29/24 pack #21 tabs Allergies Allergy/AdvReac Type Severity Reaction Status Date / Time No Known Allergies Allergy Verified 12/02/24 18:00 [facility] Disclaimer: The information contained in this section may have been updated after the patient was seen, as this information can be updated by other users. Medical History Vaginal discharge Hair follicle infection Acute post-hemorrhagic anemia hemorrhage Breast pain Depression Anxiety Migraine Asthma Polycystic ovary syndrome Surgical History Status post vaginal delivery S/P wisdom tooth extraction Family History Grandmother Cancer Social History Smoking Status: Current every day smoker second hand exposure: No alcohol intake: never substance use type: denies use current occupational status: unemployed Travel in the last 8 weeks: None household members: other housing: house marital status: single diet: lactose free Have you lived/traveled outside [place] in past 30 days?: No Contact w/someone who lives/traveled outside [place] past 30 days?: No Exposure to someone with infectious disease in past 14 days?: No Do you have a fever (greater than 100.4 F or 38 C)?: No Have you tested positive for COVID-19: No Exposed to someone with COVID-19 in past 14 days?: No Do you have a sore throat?: No Do you have a cough?: No Do you have any weakness?: No Do you have any diarrhea?: No Are you experiencing any unusual bleeding?: No Do you have any muscle aches/pain?: No Do you have any abdominal pain?: No Are you experiencing loss of taste or smell?: No Other Medical History Have you received the Flu Vaccine for this season: No Have you received the Pneumonia Vaccine: No ROS Obtained: Yes Systems reviewed as appropriate & no additional complaints except as documented Physical Exam General General appearance: alert and in no apparent distress Head Head exam: atraumatic and normocephalic Eye Eye exam: Present normal appearance and PERRL ENT ENT exam: Present normal exam Neck Neck exam: Present normal inspection Chest Chest inspection: Present normal inspection and symmetric chest wall rise; Absent tenderness Respiratory Respiratory exam: Present normal lung sounds bilaterally Cardiovascular Cardiovascular exam: Present regular rate Abdominal Exam Abdominal exam: Present soft and normal bowel sounds; Absent tenderness Extremities Exam Extremities exam: Present normal inspection and full ROM Back Exam Back exam: Present normal inspection and full ROM Neurological Exam Neurological exam: Present alert and oriented X3 Psychiatric Psychiatric exam: Present normal affect and normal mood Skin Skin exam: Present warm and dry Medical Decision Making Medical Records Screening: Per USPSTF and CDC recommendations, given the prevalence of disease in our region, it is our hospital?s policy to screen for HIV and viral Hepatitis for all patients aged 18 and over and those with ongoing risk factors. Tomas Inquiry Pt receiving controlled substance: No Tomas was queried for this patient: No Vital Signs: 12/02/24 17:34 12/02/24 17:58 12/02/24 18:19 Temperature 98 F Temperature Source Oral Pulse Rate 61 54 L Pulse Rate [Left] 61 Respiratory Rate 16 20 Blood Pressure 120/68 Blood Pressure [Right Arm] 126/87 Blood Pressure Mean [Right Arm] 100 Blood Pressure Source [Right Arm] Automatic Cuff Blood Pressure Position Blood Pressure Position [Right Arm] Supine 02 Sat by Pulse Oximetry 99 98 Oxygen Delivery Method Room Air 12/02/24 18:30 12/02/24 20:16 Temperature 98 F Temperature Source Oral Pulse Rate 58 L 78 Pulse Rate [Left] Respiratory Rate 13 14 Blood Pressure 118/71 107/87 L Blood Pressure [Right Arm] Blood Pressure Mean [Right Arm] Blood Pressure Source [Right Arm] Blood Pressure Position Sitting Blood Pressure Position [Right Arm] 02 Sat by Pulse Oximetry 98 Oxygen Delivery Method Room Air Room Air Lab Data Lab Results 12/02/24 17:37: WBC 11.7 H, RBC 5.34, Hgb 14.1, Hct 43.5, MCV 81.5, MCH 26.4 L, MCHC 32.4, RDW 14.6, Plt Count 277, MPV 11.4 H, Neut % (Auto) 74.2, Lymph % (Auto) 18.5, [place] % (Auto) 6.6, Eos % (Auto) 0.0 L, Baso % (Auto) 0.1, Neut # (Auto) 8.7 H, Lymph # (Auto) 2.2, [place] # (Auto) 0.8, Eos # (Auto) 0.0, Baso # (Auto) 0.0, Sodium 143, Potassium 4.1, Chloride 107, Carbon Dioxide 26, Anion Gap 14.1, BUN 12, Creatinine 0.70, Estimated Creat Clear 157, Estimated GFR 105, Est GFR ( Amer) 127, Glucose 96, Calcium 9.3, Total Bilirubin 0.2, AST 25, ALT 29, Alkaline Phosphatase 123, Troponin I < 0.01, Total Protein 8.2, A lbumin 5.1 H, Globulin 3.1, Albumin/Globulin Ratio 1.6 12/02/24 17:50: SARS-CoV-2 (PCR) Detected A, Influenza A Untype (PCR) Not detected, Influenza Type B (PCR) Not detected 12/02/24 17:37 12/02/24 17:37 Orders (Tests/Meds): ORDERS Category Date Time Status CXR --portable [XR chest portable] Stat Exams 12/02/24 17:34 Completed CBC w/Auto Diff [Complete Blood Count Auto Diff] Stat Lab 12/02/24 17:37 Completed CMP [Comprehensive Metabolic Panel] Stat Lab 12/02/24 17:37 Completed Rapid PCR Covid and Flu A/B Stat Lab 12/02/24 17:50 Completed Trop I [Troponin I] Stat Lab 12/02/24 17:37 Completed Medical Decision Narrative: In summary, patient is a 24-year-old female no significant PMHx who presents to the ED for chest pain x 2 days. Patient states that she intermittently feels short of breath. States that her boyfriend was diagnosed with COVID this past week. Denies taking any [id number] medications for symptomatic relief. Denies upon initial exam, patient is alert, oriented and cooperative. Patient is hemodynamically stable. Physical exam unremarkable. Denies fever, chills, body aches, headache, visual disturbances, posterior neck pain, chest pain, abdominal pain, nausea, vomiting. Denies taking oral contraceptives. Denies tobacco use. Differential diagnosis includes ACS, pneumonia, pneumothorax, pulmonary embolism, viral syndrome, among others Initial workup will be conducted with hematologic labs, imaging. Initial workup reviewed by me. CBC unremarkable for any leukocytosis, stable H&H. CMP unremarkable. First troponin < 0.01. Patient positive for COVID. Patient remained hemodynamically stable while in the ED. She is ambulatory without difficulty. Able to tolerate p.o. Given this, I discussed with patient she is safe to be discharged home. We discussed taking acetaminophen and ibuprofen [id number] for symptomatic relief. Advised her to increase her fluid intake. Advised her to follow-up with her PCP within 7 days. We discussed return precautions to the ED. Patient verbalized understanding of all instructions Critical Care Critical Care Time Critical Care Time: No
[2024-12-02 17:52] LABS: Basophils % 0.1 % (0.1-2.0); Hematocrit 43.5 % (37.0-47.0); Hemoglobin 14.1 g/dL (12.2-16.2); Lymphocytes # 2.2 K/mm3 (0.7-4.5); Lymphocytes % 18.5 % (10-50); Mean Corpuscular HGB Conc 32.4 g/dL (31.8-35.4); Mean Corpuscular Hemoglobin 26.4 pg (27.0-31.2); Mean Corpuscular Volume 81.5 fl (81-99); Mean Platelet Volume 11.4 fl (7.4-10.4); Monocytes # 0.8 K/mm3 (0.1-1.0); Monocytes % 6.6 % (1.7-9.3); Neutrophils # 8.7 K/mm3 (1.8-7.8); Neutrophils % 74.2 % (37.0-80.0); Platelet Count 277 K/mm3 (142-424); Red Blood Count 5.34 M/mm3 (4.20-5.40); Red Cell Distribution Width 14.6 % (11.5-17.5); White Blood Count 11.7 K/mm3 (4.8-10.8)
[2024-12-02 17:58] VITALS: PULSE 61
--- NOTE | 2024-12-02 18:00 | ECG_ITS ---
APPROVED REPORT Exam: Resting ECG HR:63 bpm ECG Measurements Heart Rate 63 AXES CO 119 P 55 QRSd 101 QRS 28 QT 377 T 15 QTc 384 Conclusion SINUS RHYTHM WITH SHORT CO INTERVAL WITH OCCASIONAL ECTOPIC PREMATURE COMPLEXES BORDERLINE ECG UNCONFIRMED REPORT Electronically signed by : Macy Weinberg, 12/03/2024 01:23:14
[2024-12-02 18:10] LABS: Albumin Level 5.1 g/dl (3.5-5.0); Chloride 107 mmol/L (98-107); Sodium 143 mmol/L (136-145)
[2024-12-02 18:10] LABS: Influenza A, PCR Not Detected (NotDetected); Influenza B, PCR Not Detected (NotDetected)
[2024-12-02 18:11] LABS: Potassium 4.1 mmoL/L (3.5-5.1)
[2024-12-02 18:13] LABS: Alanine Aminotransferase 29 U/L (12-78); Albumin/Globulin Ratio 1.6 (1.1-1.8); Alkaline Phosphatase 123 U/L (38-126); Anion Gap 14.1 mEq/L (5-15); Aspartate Amino Transferase 25 U/L (14-36); Bilirubin,Total 0.2 mg/dl (0.2-1.3); Blood Urea Nitrogen 12 mg/dl (7-17); Carbon Dioxide 26 mmol/L (22.0-30.0); Creatinine Clearance Estimated 157 mL/min (50-200); Estimated Glomerular Filt Rate 105 ml/min (>60); GFR (African American) 127 ML/MIN (>60); Globulin 3.1 g/dL (1.3-3.2); Total Protein,Serum 8.2 g/dl (6.3-8.2)
[2024-12-02 18:14] LABS: Calcium 9.3 mg/dl (8.4-10.2); Glucose 96 mg/dl (74-100)
[2024-12-02 18:19] VITALS: BP 120/68; PULSE 54; RESP 20; O2SAT 98
[2024-12-02 18:29] LABS: Troponin I < 0.01 ng/ml (0.00-0.034)
[2024-12-02 18:30] VITALS: BP 118/71; PULSE 58; RESP 13; O2SAT 98
[2024-12-02 18:49] LABS: Coronavirus 19, PCR Detected (NotDetected)
[2024-12-02 20:16] VITALS: BP 107/87; PULSE 78; RESP 14; TEMP 36.6; O2SAT 100
== END 2024-12-02 20:17 | disposition home or self-care (01) ==
PROVIDERS: Nurse Practitioner; Emergency Provider Student in an Organized Health Care Education/Training Program
DX: U07.1 COVID-19 (principal); R07.9 Chest pain, unspecified; R06.02 Shortness of breath; Z20.822 Contact with and (suspected) exposure to COVID-19; Z72.0 Tobacco use
CPT/HCPCS: 71045; 80053; 84484; 85025; 87636; 93005; 99284

== ENCOUNTER 2024-12-20 09:55 | Outpatient (CLI) | payer MEDICAID, SELFPAY ==
[2024-12-20 18:08] LABS: HCG,Quantitative < 2 mIU/ml (0-5.42)
[2024-12-21 13:59] LABS: RPR W/RFX Titers Nonreactive (Nonreactive)
[2024-12-21 20:18] LABS: Chlamydia trachomatis Negative (Negative); Neisseria gonorrhoeae Negative (Negative); Trichomonas vaginalis Negative (Negative)
[2024-12-24 08:10] LABS: HSV-1 DNA Negative (Negative); HSV-2 DNA Negative (Negative); Neisseria gonorrhoeae, NAA Negative (Negative)
== END 2024-12-20 23:59 | disposition home or self-care (01) ==
LOC: LAB.DROPOF 12-21 12:01
PROVIDERS: PCP Nurse Practitioner Family; Visit Provider Nurse Practitioner Family
DX: Z20.2 Contact with and (suspected) exposure to infections with a predominantly sexual mode of transmission (principal)
CPT/HCPCS: 84702; 86592; 87491; 87529; 87591; 87661

== ENCOUNTER 2025-03-20 16:02 | Outpatient (CLI) | payer MEDICAID, SELFPAY | END 2025-03-20 23:59 | disposition home or self-care (01) | LOC: LAB.DROPOF 16:02 | PROVIDERS: PCP Obstetrics & Gynecology; Visit Provider Obstetrics & Gynecology | DX: N39.0 Urinary tract infection, site not specified (principal) | CPT/HCPCS: 87086 ==

== ENCOUNTER 2025-03-29 14:26 | Emergency (ER) | payer MEDICAID, SELFPAY ==
[2025-03-29 14:42] VITALS: BP 109/77; PULSE 85; RESP 19; O2SAT 100
[2025-03-29 14:54] VITALS: BP 144/86; PULSE 67; RESP 16; TEMP 36.8; O2SAT 99; BMI 31.4
[2025-03-29 15:04] LABS: Microscopic, Urine URINE MICROSCOPIC (MICROSCOPIC)
[2025-03-29 15:05] LABS: Appearance,Urine SL CLOUDY (Clear); Bilirubin,Urine Negative (Negative); Blood, Urine Negative (Negative); Color,Urine YELLOW (Yellow); Glucose,Urine (UA) Negative (Negative); Ketones,Urine TRACE (Negative); Leukocyte Esterase,Urine 1+ (Negative); Nitrate,Urine Negative (Negative); Protein,Urine TRACE (Negative); Specific Gravity, Urine >= 1.030 (1.005-1.030); Urobilinogen,Urine 0.2 EU/dl (0.2)
[2025-03-29 15:08] LABS: Urine Pregnancy, HCG Qual. Negative (Negative)
[2025-03-29 15:23] LABS: Bacteria,Urine 4+ /lpf; Mucus,Urine 1+ /lpf; Squamous Epithelial Cell,Urine 50-100 #/hpf (0-5); WBC,Urine 50-100 #/hpf (0-3)
[2025-03-29] MEDS: DOXYCYCLINE HYCL 100 MG TABLET PO (15:28)
[2025-03-29] MEDS: metroNIDAZOLE 500 MG TABLET PO (15:28)
[2025-03-29] MEDS: LIDOCAINE 1% 5ML PF VIAL IM (15:29)
[2025-03-29] MEDS: cefTRIAXone 500MG VIAL 500 MG IM (15:31)
--- NOTE | 2025-03-29 16:16 | ED_ITS ---
Discharge Plan Disposition Patient Disposition: Home, Self-Care Prescriptions Prescriptions: New doxycycline hyclate 100 mg capsule 100 mg PO BID 7 Days Qty: 14 0RF metronidazole 500 mg tablet 500 mg PO BID 7 Days Qty: 14 0RF No Action doxycycline hyclate 100 mg capsule 100 mg PO BID Qty: 14 0RF Referrals Follow up/Referrals: Bree James APRN [Primary Care Provider, Family Practice] - See instructions Activity Restrictions/Add. Instructions Additional Instructions/Restrictions: Call your family doctor to establish care for this visit to the emergency department and schedule follow-up within 48 hours to ensure improvement. If you have any worsening of your condition or any other concerning signs or symptoms, return to the emergency department or your primary care doctor for further evaluation. Doxycycline twice daily for 7 days, Flagyl twice daily for 7 days. While taking doxycycline, limit sunlight exposure. It can cause severe sunburns even if you do not typically get sunburn. Be sure to wear hats, long sleeves, sunscreen if you are out in the sun for prolonged periods of time while taking doxycycline. You will be contacted if w any of your STD testing comes back positive Clinical Impressions Clinical Impression: Dysuria, Encounter for medical assessment Instructions Patient Instructions: DI for Urinary Tract Infection (UTI), DI for Urinary Tract Infection in Children Print Language Print Language: Japanese Discharge ED Provider: Stalin Brown General Adult HPI General Chief complaint: Urogenital-Female Stated complaint: antibiotics causing UTI Time Seen by Provider: 03/29/25 14:56 Mode of Arrival: Ambulatory Source of Information: Patient Description of Symptoms (Recalled from ER Triage Doc. by RN): Patient states she just finished antibiotics (Doxycycline) yesterday for chlamydia and then today she developed bumps on her vaginal area and states she is having burning with urination History of Present Illness HPI narrative: Please note that above description of symptoms, in this electronic medical record under categorization of recalled from ER triage doctor by RN are reflective of an initial nursing assessment, however, is not reflective of my full history and physical exam that was personally taken and clarified. Consequentially, this preceding description of symptoms, which may include the patient's categorized chief complaint in the EMR, do not reflect my personal clinical impression, and the ultimate description of history of present illness and patient stated complaints should be deferred to this section of the note. Unless stated otherwise or congruent with this section of the note, additional signs, symptoms, or incongruence should be interpreted as inaccurate with my clinical impression. Related Data Previous Rx's ?Medication ?Instructions ?Recorded doxycycline hyclate 100 mg capsule 100 mg PO BID #14 c aps 03/23/25 doxycycline hyclate 100 mg capsule 100 mg PO BID 7 day s #14 caps 03/29/25 metronidazole 500 mg tablet 500 mg PO BID 7 days #14 t abs 03/29/25 Allergies Allergy/AdvReac Type Severity Reaction Status Date / Time No Known Allergies Allergy Verified 03/20/25 09:10 [facility] Disclaimer: The information contained in this section may have been updated after the patient was seen, as this information can be updated by other users. Medical History Vaginal discharge Hair follicle infection Acute post-hemorrhagic anemia hemorrhage Breast pain Depression Anxiety Migraine Asthma Polycystic ovary syndrome Surgical History Status post vaginal delivery S/P wisdom tooth extraction Family History Grandmother Cancer Social History Smoking Status: Current every day smoker second hand exposure: No alcohol intake: never substance use type: denies use current occupational status: unemployed Travel in the last 8 weeks?: None household members: other housing: house marital status: single diet: lactose free Have you lived/traveled outside [place] in past 30 days?: No Contact w/someone who lives/traveled outside US past 30 days?: No Exposure to someone with infectious disease in past 14 days?: No Do you have a fever (greater than 100.4 F or 38 C)?: No Have you tested positive for COVID-19?: No Exposed to someone with COVID-19 in past 14 days?: No Do you have a sore throat?: No Do you have a cough?: No Do you have any weakness?: No Do you have any diarrhea?: No Are you experiencing any unusual bleeding?: No Do you have any muscle aches/pain?: No Do you have any abdominal pain?: No Are you experiencing loss of taste or smell?: No Other Medical History Have you received the Flu Vaccine for this season: No Have you received the Pneumonia Vaccine: No ROS Obtained: Yes All systems reviewed & no additional complaints except as documented Physical Exam General General appearance: alert and in no apparent distress Head Head exam: atraumatic and normocephalic Eye Eye exam: Present normal appearance, PERRL and EOMI Neck Neck exam: Present normal inspection, full ROM and trachea midline Respiratory Respiratory exam: Absent respiratory distress, wheezes, stridor, accessory muscle use or prolonged expiratory phase Cardiovascular Cardiovascular exam: Present other (Pulses equal symmetric in upper and lower extremities) Abdominal Exam Abdominal exam: Present soft; Absent distention, tenderness or pulsatile mass Extremities Exam Extremities exam: Absent edema Neurological Exam Neurological exam: Present alert, oriented X3 and CN II-XII intact; Absent motor sensory deficit Skin Skin exam: Present warm, dry and rash; Absent diaphoresis or erythema Medical Decision Making Medical Records Medical records reviewed: Yes I reviewed the patient's medical records. Screening: Per USPSTF and CDC recommendations, given the prevalence of disease in our region, it is our hospital?s policy to screen for HIV and viral Hepatitis for all patients aged 18 and over and those with ongoing risk factors. Tomas Inquiry Pt receiving controlled substance: No Tomas was queried for this patient: No Vital Signs: 03/29/25 14:42 03/29/25 14:54 Temperature 98.2 F Temperature Source Oral Pulse Rate 85 Pulse Rate [Right Brachial] 67 Respiratory Rate 19 16 Blood Pressure 109/77 L Blood Pressure [Right Arm] 144/86 H Blood Pressure Mean [Right Arm] 105 Blood Pressure Source [Right Arm] Automatic Cuff Blood Pressure Position [Right Arm] Sitting 02 Sat by Pulse Oximetry 100 99 Oxygen Delivery Method Room Air Lab Data Lab Results 03/29/25 14:50: Urine Color Yellow, Urine Appearance Sl cloudy, Urine pH 6.0, Ur Specific [place] >= 1.030, Urine Protein Trace, Urine Glucose (UA) Negative, Urine Ketones Trace, Urine Blood Negative, Urine Nitrate Negative, Urine Bilirubin Negative, Urine Urobilinogen 0.2, Ur Leukocyte Esterase 1+ A, Urine RBC 5-10, Urine WBC 50-100, Ur Squamous Epith Cells 50-100, Urine Bacteria 4+, Urine Mucus 1+, Urine HCG, Qual Negative Orders (Tests/Meds): ED MEDICATIONS Discontinued Medications Generic Name Dose Route Start Last Admin Trade Name Freq PRN Reason Stop Dose Admin Ceftriaxone Sodium 500 mg 03/29/25 15:30 03/29/25 15:31 Ceftriaxone 500mg Vial IM 03/29/25 15:31 500 mg ONCE ONE Administration Doxycycline Hyclate 100 mg 03/29/25 15:14 03/29/25 15:28 Doxycycline Hycl 100 Mg Tablet PO 03/29/25 15:15 100 mg ONCE ONE Administration Lidocaine HCl 0 ml 03/29/25 15:14 03/29/25 15:29 Lidocaine 1% 5ml Pf Vial IM 03/29/25 15:15 5 ml ONCE ONE Administration Metronidazole 500 mg 03/29/25 15:14 03/29/25 15:28 Metronidazole 500 Mg Tablet PO 03/29/25 15:15 500 mg ONCE ONE Administration ORDERS Category Date Time Status Chlam/Gono/Trich/Myco, NINA, Ur Stat Lab 03/29/25 15:20 Received Urinalysis and Microscopic Stat Lab 03/29/25 14:50 Completed Urine , HCG Qual. Stat Lab 03/29/25 14:50 Completed Urine Culture Stat Micro 03/29/25 14:50 Received Medical Decision Narrative: This a 24-year-old male presenting for medical evaluation. She states that she was treated for chlamydia, stopped taking her doxycycline yesterday, 03/28 after completing the full 7-day course. As of last night, had a couple of small bumps pop up on her legs, not in her groin or vaginal area. They are nontender, other people in the house do have similar bumps. She thinks they are bug bites just wanted to be sure given the circumstances. Also states that her boyfriend has not been treated or tested for STDs either. Still having some dysuria, came in for further evaluation. On arrival, very clinically well, anxious, but no acute distress. She has small urticaria on the backs of her legs consistent with what look like bug bites. Because patient still having symptoms, she is only treated with doxycycline, did not receive intramuscular ceftriaxone. To be treated empirically and I am going to add on Flagyl today. Repeat STD testing was sent. Because patient at baseline without signs or symptoms of clinical decompensation, deemed appropriate for discharge. Results were relayed to patient who voiced understanding and were agreeable to outpatient management and follow up. I discussed my clinical impression with patient and answered all questions. At this time, the evidence for any other entities in the differential is insufficient to warrant any further testing or ED observation. This was explained as well. Advisory was given that persistent or worsening symptoms require further evaluation. I confirmed the understanding of this discussion. Cell Stripper Final disclaimer Much of this encounter note is an electronic keyboarding teacher spoken language to printed text. Electronic keyboarding teacher of the spoken language may permit errors. Although I have reviewed the note, some errors may still exist. Critical Care Critical Care Time Critical Care Time: No
[2025-03-29 16:22] VITALS: BP 144/86; PULSE 67; RESP 16; TEMP 36.8; O2SAT 98
--- NOTE | 2025-03-31 08:29 | PC.NURSE ---
Urine culture results reviewed by Dr. Lares, no new order received at this time.
[2025-04-02 11:12] LABS: Mycoplasma genitalium, NAA Negative (Negative); Neisseria gonorrhoeae, NAA Negative (Negative); Trich vag by NAA Negative (Negative)
--- NOTE | 2025-04-10 09:52 | PC.NURSE ---
Lab results reviewed by Dr. Lares, no new orders received. He asked that I contact patient to let her know of test results. I attempted to contact patient, no answer, left message asking her to return call.
--- NOTE | 2025-04-10 14:48 | PC.NURSE ---
Patient returned call, notified of test results.
== END 2025-03-29 16:25 | disposition home or self-care (01) ==
PROVIDERS: Emergency Medicine; Emergency Provider Emergency Medicine; PCP Nurse Practitioner Family
DX: R30.0 Dysuria (principal); Z00.00 Encounter for general adult medical examination without abnormal findings
CPT/HCPCS: 81001; 81025; 87086; 87491; 87563; 87591; 87661; 96372; 99284; J0696; J2003

== ENCOUNTER 2025-04-09 11:00 | Outpatient (CLI) | payer MEDICAID, SELFPAY ==
[2025-04-11 07:44] LABS: Neisseria gonorrhoeae, NAA Negative (Negative)
== END 2025-04-09 23:59 | disposition home or self-care (01) ==
LOC: LAB.DROPOF 04-10 10:44
PROVIDERS: PCP Obstetrics & Gynecology; Visit Provider Obstetrics & Gynecology
DX: Z11.59 Encounter for screening for other viral diseases (principal); R30.0 Dysuria
CPT/HCPCS: 87491; 87591

== ENCOUNTER 2025-04-26 13:46 | Outpatient (CLI) | payer MEDICAID, SELFPAY ==
[2025-04-29 21:12] LABS: Neisseria gonorrhoeae, NAA Negative (Negative)
[2025-05-02 15:47] LABS: Bacterial Vaginosis Associated 0
== END 2025-04-26 23:59 | disposition home or self-care (01) ==
LOC: LAB.DROPOF 04-29 13:46
PROVIDERS: PCP Nurse Practitioner Family; Visit Provider Obstetrics & Gynecology
DX: N76.0 Acute vaginitis (principal); R30.0 Dysuria
CPT/HCPCS: 87086; 87491; 87591; 87798; 87801

== ENCOUNTER 2025-05-09 13:50 | Outpatient (CLI) | payer MEDICAID, SELFPAY | END 2025-05-09 23:59 | disposition home or self-care (01) | LOC: LAB.DROPOF 05-10 11:15 | PROVIDERS: PCP Student in an Organized Health Care Education/Training Program; Visit Provider Student in an Organized Health Care Education/Training Program | DX: R30.0 Dysuria (principal) | CPT/HCPCS: 87086; 87491; 87591; 87661 ==

== ENCOUNTER 2025-07-01 12:34 | Outpatient (CLI) | payer MEDICAID, SELFPAY ==
[2025-07-02 08:23] LABS: Hepatitis B Surface Antigen Negative (Negative)
--- OUTSIDE RECORDS SUMMARY | 2025-07-02 10:48 | XMS_ITS | Clinical Summary ---
Author Organization [facility] Address [address] [place], [place] [id number] Phone [email or web address] Care Team Providers Care Tie Sawyer Name Role Phone Unavailable Primary Care Provider Unavailabl e Social History Tobacco Use Types Packs/Day Years Used Date Smoking Tobacco: Never Assessed Intimate Partner Violence Answer Date R ecorded Insults You Not on file 11/25/2021 Threatens You Not on file 11/25/2021 Screams at You Not on file 11/25/2021 Physically Hurt Not on file 11/25/2021 Intimate Partner Violence Score Not on file 11/25/2021 Stress Answer Date Recorded Stress in your Life Not on file 08/08/2024 Dealing with Stress 3 08/08/2024 Comments Unknown Sex and Gender Information Value Date Recorded Sex Assigned at Not on file 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 Gender Identity Not on file Sexual Orientation Not on file Last Filed Vital Signs Vital Sign Reading Time Taken Comments Blood Pressure 126/71 11/25/2021 10:59 AM EST Pulse 97 11/25/2021 10:59 AM EST Temperature 36.8 C (98.2 F) 11/25/2021 10:59 AM EST Respiratory Rate - - Oxygen Saturation 98% 11/25/2021 10:59 AM EST Inhaled Oxygen Concentration - - Weight 89.6 kg (197 lb 9.6 oz) 11/25/2021 10:59 AM EST Height 161 cm (5' 3.4 ) 11/25/2021 10:59 AM EST Body Mass Index 34.56 11/25/2021 10:59 AM EST Plan of Treatment Health Maintenance Due Date Last Done Comments Cervical Cancer Screening Combo 2002 Dental Cleaning/Exam 2002 HIV Screening 2002 HPV / Cotest 2002 Hepatitis C Screening 2002 Pap Testing 2002 HPV Immunization (1 - 3-dose series) 2017 Men B Immunization (1 of 2 - Standard) 2018 Hep B Infection Screening - Triple Screen 2020 Hepatitis B Immunization (1 of 3 - 19+ 3-dose series) 2021 Tetanus Diphtheria and Pertu ssis Immunization (1 - Tdap) 2021 Annual Preventive Exam 11/25/2022 11/25/2021 Covid-19 Immunization (1 - 2 -25 season) 2025 Influenza Immunization (#1) 2025 HIB Immunization Aged Out No longer e ligible based on patient's age to complete this topic Hepatitis A Immunization Aged Out No longer eligible based on patient's age to complete this topic Meningococcal Immunization Aged Out N o longer eligible based on patient's age to complete this topic Pneumococcal Immunization Aged Out No longer eligible based on patient's age to complete this topic Polio Immunization Aged Out No longer eligible based on patient's age to complete this topic Varicella Immunization Aged Out No lo nger eligible based on patient's age to complete this topic Insurance OPT OUT NO COPAY NB
[2025-07-02 15:14] LABS: RPR W/RFX Titers Nonreactive (Nonreactive)
[2025-07-03 08:14] LABS: HSV-1 DNA Negative (Negative); HSV-2 DNA Negative (Negative)
== END 2025-07-01 23:59 | disposition home or self-care (01) ==
LOC: LAB.DROPOF 07-02 10:43
PROVIDERS: PCP Student in an Organized Health Care Education/Training Program; Visit Provider Student in an Organized Health Care Education/Training Program
DX: N39.0 Urinary tract infection, site not specified (principal); Z72.51 High risk heterosexual behavior
CPT/HCPCS: 86592; 87086; 87088; 87186; 87340; 87389; 87491; 87529; 87563; 87591; 87661

== ENCOUNTER 2025-07-17 17:15 | Outpatient (CLI) | payer MEDICAID, SELFPAY ==
--- OUTSIDE RECORDS SUMMARY | 2025-07-18 12:16 | XMS_ITS | Clinical Summary ---
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
== END 2025-07-17 23:59 ==
LOC: LAB.DROPOF 07-18 12:14
PROVIDERS: PCP Nurse Practitioner; Visit Provider Nurse Practitioner
DX: N39.0 Urinary tract infection, site not specified (principal)
CPT/HCPCS: 87086; 87088